=== PATIENT | female | born 1970 | race Caucasian/White ===

== ENCOUNTER → 2018-04-10 17:37 | Outpatient (CLI) | payer OTHER, SELFPAY ==
--- NOTE | 2018-04-10 17:42 | DI.MRI.S_ITS ---
PROCEDURE: MR HEAD/BRAIN WO/W CON INDICATIONS: MULTIPLE SCLEROSIS TECHNIQUE: Noncontrast sagittal and axial FLAIR, axial and coronal T2 fast spin echo, axial VIBE, axial gradient echo, axial diffusion and ADC through the brain. After the administration of contrast, axial and coronal VIBE with fat saturation through the brain. COMPARISON: [facility], MR, BRAIN W&WO CONTRAST, 04/18/2017, 17:19. FINDINGS: Image quality: Excellent. CSF spaces: Ventricles are normal in size and shape. Basal cisterns are patent. No extra-axial fluid collections. Brain: No intracranial bleeds or mass effects. Foci of increased T2 signal involving the corpus callosal, periventricular and subcortical white matter are stable in size, contour and number compared to 04/19/2017. No new white matter lesions are identified. No postcontrast enhancement associated with the white matter lesions. Jesus-white matter interface appears intact. No suspicious white matter lesions. No abnormal intracranial enhancement. Diffusion weighted images show no acute ischemic insults. Brainstem appears normal. Normal intravascular flow voids are present. Skull and face: Calvarial marrow signal is normal. Orbits appear normal. Sinuses: Sinuses and mastoids are clear. IMPRESSION: 1. Stable examination compared to 04/19/17. 2. Multiple foci of increased T2 signal involving the corpus callosal, periventricular and subcortical white matter which have imaging characteristics compatible with reported history of multiple sclerosis. 3. No abnormal intracranial postcontrast enhancement. Dictated by: Jenny Collins MD, PhD on 04/13/2018 at 8:36 Approved by: Jenny Collins MD, PhD on 04/13/2018 at 8:41
== END ==
PROVIDERS: Family Provider Physician Assistant Medical; PCP Family Medicine; Visit Provider Psychiatry & Neurology Neurology
DX: G35 Multiple sclerosis (principal)
CPT/HCPCS: 70553; A9579

== ENCOUNTER → 2019-01-26 06:31 | Outpatient (CLI) | payer OTHER, SELFPAY ==
--- NOTE | 2019-01-26 | DI.MRI.S_ITS ---
PROCEDURE: MR ELBOW RT WO/W CON INDICATIONS: RIGHT ELBOW PAIN TECHNIQUE: Noncontrast coronal proton density fast spin echo and T2 fast spin echo with fat saturation, coronal T1 spin echo with fat saturation, axial and sagittal T1 spin echo and T2 fast spin echo with fat saturation through the elbow. Post-contrast coronal, axial, and sagittal T1 spin echo with fat saturation through the elbow. COMPARISON: None. FINDINGS: Image quality: Excellent. Lateral structures: Full-thickness rupture of lateral collateral ligaments are seen. The overlying common extensor tendon also appears thickened with suggestion of low-grade intrasubstance partial thickness tear near its lateral epicondylar insertion. Medial structures: The ulnar collateral ligament appears intact. The overlying common flexor tendon appears slightly thickened with internal fluid signal suggestive of tendinosis and low-grade intrasubstance partial thickness tear. The ulnar nerve appears normal in size and signal within the cubital tunnel. Anterior structures: The biceps and brachialis tendons both appear intact as they insert onto the proximal radius and ulna, respectively. No bicipitoradial bursal fluid. The median and radial neurovascular bundles appear normal; no focal muscle atrophy to suggest nerve impingement. Posterior structures: The conjoint triceps tendon from the long and lateral heads appears intact. The medial head of the triceps tendon also appears normal, with direct muscle insertion onto the olecranon. No olecranon bursal fluid. Bone and cartilage: No suspicious osseous enhancement. No bone marrow contusions or fractures. No osteochondral injuries. Moderate amount of joint effusion is seen. No gross intra-articular loose body. IMPRESSION: 1. Ruptured lateral collateral ligaments of the elbow joint with tendinosis and low to moderate grade partial-thickness involving common extensor tendon origin. Moderate amount of joint fluid, no gross loose body. 2. Tendinosis and low-grade partial-thickness involving common flexor tendon origin. 3. Medial elbow ligaments are grossly intact. 4. No marrow edema. No fracture or dislocation. No area of abnormal contrast enhancement. Dictated by: Jesus Gonzalez M.D. on 01/26/2019 at 12:28 Approved by: Jesus Gonzalez M.D. on 01/26/2019 at 12:39
== END ==
PROVIDERS: PCP Family Medicine; Visit Provider Family Medicine
DX: M25.521 Pain in right elbow (principal); S53.491A Other sprain of right elbow, initial encounter
CPT/HCPCS: 73223; A9579

== ENCOUNTER 2019-03-13 10:22 | Emergency (ER) | payer OTHER, SELFPAY ==
[2019-03-13 10:28] VITALS: BP 114/63; PULSE 79; RESP 14; TEMP 36.3; O2SAT 100
--- NOTE | 2019-03-13 10:44 | DI.RAD.S_ITS ---
PROCEDURE: XR HAND RT MIN 3V INDICATIONS: glf, right hand pain,swelling. TECHNIQUE: 3 views of the hand(s) acquired. COMPARISON: None. FINDINGS: Bones: No fractures or dislocations. Carpal bones are normally aligned. No suspicious bony lesions. Soft tissues: No suspicious soft tissue calcifications. IMPRESSION: No displaced fractures are seen on these plain films. If there is focal tenderness, or other clinical concern for a fracture not seen on these images in this patient with a given history of trauma, please consider a dedicated CT or a short-term followup plain film series (in 1-2 weeks) for further evaluation. Dictated by: Wero Craft M.D. on 03/13/2019 at 10:01 Approved by: Wero Craft M.D. on 03/13/2019 at 10:02
[2019-03-13 11:01] VITALS: PULSE 70
--- NOTE | 2019-03-13 11:02 | PC.NURSE ---
CSM intact w/ movement limited by pain. Splinted at triage for comfort. Encouraged ice and elevation.
--- NOTE | 2019-03-13 11:31 | ED_ITS ---
HPI - Extremity Injury (Upper) General Chief Complaint: Extremity Injury, Upper Stated Complaint: poss broken r hand Time Seen by Provider: 03/13/19 11:24 Source: patient Mode of arrival: ambulatory Limitations: no limitations History of Present Illness HPI narrative: Patient is a 48-year-old female with history of multiple sclerosis presenting with right hand injury. She says she tripped and fell a tumbling into the chicken coop. No loss of consciousness. Initial site of impact was her hand. She has chronic elbow pain not any worse. She thinks that some of her fingers are numb. She has significant swelling of her hand. MD complaint: injury to: right and hand Onset (ago): hour(s) Related Data Home Medications Medication Instructions Recorded Confirmed FERROUS SULFATE (#IRON CAPLETS) 125 mg PO QDAY #0 08/10/12 Glucosamine Sulfate (#GLUCOSAMINE) 3,000 mg PO #0 08/10/12 MULTIVITAMIN (#MULTIPLE VITAMINS) 1 cap PO QDAY #0 08/10/12 acetaminophen [Tylenol Extra 1,000 mg PO Q6HP #0 08/10/12 Strength] cetirizine 10 mg PO QDAY #0 08/10/12 cholecalciferol (vitamin D3) 3,000 iu PO DAILY #0 08/10/12 [Vitamin D3] citalopram [Celexa] 20 mg PO QDAY #0 08/10/12 folic acid 5 mg PO QDAY #0 08/10/12 methotrexate sodium (PF) 1 ml SQ QWEEKSA #0 08/10/12 gabapentin [Neurontin] 900 mg PO HS #0 08/25/12 calcium citrate 2,000 mg PO BID #0 10/08/16 magnesium oxide 400 mg PO QDAY #0 10/08/16 duloxetine [Cymbalta] 60 mg PO QDAY #0 06/20/17 hydrocodone-ibuprofen [Ibudone] #0 06/20/17 Previous Rx's Medication Instructions Recorded hydrocodone-acetaminophen [Appleton] 1 tab PO Q4H PRN #60 tab 10/23/16 hydroxyzine pamoate [Vistaril] 25 mg PO Q4HP PRN #60 cap 10/23/16 pantoprazole 40 mg PO 0600 #60 10/23/16 Allergies Allergy/AdvReac Type Severity Reaction Status Date / Time adhesive Allergy Severe BLISTER, Verified 03/13/19 10:33 SKIN COMES OFF capsaicin [CAPSAICIN] Allergy Severe ANAPHYLAXIS Verified 03/13/19 10:33 shellfish derived Allergy Severe ANAPHYLAXIS Verified 03/13/19 10:33 [SHELLFISH DERIVED] latex [LATEX] Allergy Intermediate BLISTER, Verified 03/13/19 10:33 HIVES oxycodone [From PERCOCET] Allergy Intermediate HIVES Verified 03/13/19 10:33 acetaminophen [From PERCOCET] AdvReac Intermediate HIVES Verified 03/13/19 10:33 Review of Systems Review of Systems GENERAL: Denies chills,fever HEENT: Denies throat pain RESPIRATORY: Denies dyspnea, cough, wheezing CARDIOVASCULAR: Denies chest pain, palpitations GASTROINTESTINAL: Denies nausea, vomiting MUSCULOSKELETAL: See HPI SKIN: No rash, no laceration, no pruritus NEUROLOGIC: Denies weakness, dizziness, headache, numbness 8 point review of systems is negative except for those stated above and HPI FOR[facility]LY [facility], [facility] Medical History Multiple sclerosis (Acute) Social History Smoking Status: Former smoker Social History Smoking Status: Former smoker Exam Initial Vital Signs Initial Vital Signs: Vital Signs Temperature 97.3 F L 03/13/19 10:28 Pulse Rate 79 03/13/19 10:28 Respiratory Rate 14 03/13/19 10:28 Blood Pressure 114/63 03/13/19 10:28 Pulse Oximetry 100 03/13/19 10:28 GENERAL: Well-appearing, well-nourished and in no acute distress. HEAD: Atraumatic no abrasions crepitations depression NECK: Supple no vertebral tenderness CARDIOVASCULAR: peripheral pulses in tact, cap refill <2 sec RESPIRATORY: No respiratory distress, speaks in full sentences without difficulty EXTREMITIES: Normal range of motion, no clubbing or edema. Neurovascularly i ntact Right hand swelling. Decreased range of motion of fingers due to swelling. Drains have been removed. She is able to flex and extend at her wrist. Slight pain at right elbow but she says that is normal. NEUROLOGICAL: Cranial nerves II through XII grossly intact. Normal gait and speech. SKIN: Warm, dry, no petechiae, no rashes or lesions. Course Orders Ordered: ED Orders 03/13/19 10:44 XR hand RT min 3V Stat Discontinued Medications Ketorolac Tromethamine (Toradol) 30 mg IM NOW ONE Stop: 03/13/19 11:25 Last Admin: 03/13/19 11:44 Dose: 30 mg Vital Signs - 8 hr 03/13/19 10:28 03/13/19 11:01 03/13/19 12:01 Temperature 97.3 F L Pulse Rate 79 78 Pulse Rate [Right Radial] 70 Respiratory Rate 14 14 Blood Pressure 114/63 Blood Pressure [Left Arm] 122/78 Pulse Oximetry 100 98 MDM - Extremity Injury (Upper) Imaging Data right hand: Radiologist's impression: PROCEDURE: XR HAND RT MIN 3V INDICATIONS: glf, right hand pain,swelling. TECHNIQUE: 3 views of the hand(s) acquired. COMPARISON: None. FINDINGS: Bones: No fractures or dislocations. Carpal bones are normally aligned. No suspicious bony lesions. Soft tissues: No suspicious soft tissue calcifications. IMPRESSION: No displaced fractures are seen on these plain films. If there is focal tenderness, or other clinical concern for a fracture not seen on these images in this patient with a given history of trauma, please consider a dedicated CT or a short-term followup plain film series (in 1-2 weeks) for further evaluation. Dictated by: Wero Craft M.D. on 03/13/2019 at 10:01 Discharge Plan Departure Patient Disposition: Home Clinical Impression: Sprain and strain of right hand Discharge Date/Time: 03/13/19 12:02 Interventions: ED Discharge Assessment Last Done: 03/13/19 12:02 Instructions: DI for Hand Injury Activity Restrictions/Additional Instructions: *You have been diagnosed with right hand sprain *What to do: Recommend elevating, icing. Increased movement as tolerated. You may require repeat x-rays in 7-10 days if still having pain and discomfort. *Continue to take medications as directed *Follow up with your primary care provider in 2-3 days *Return to ER if you should have increasing weakness, numbness, tingling or any new, worsening or concerning symptoms Prescriptions: No Action cholecalciferol (vitamin D3) [Vitamin D3] 1,000 UNIT tablet 3,000 iu PO DAILY Qty: 0 RF: 0 acetaminophen [Tylenol Extra Strength] 500 MG tablet 1,000 mg PO Q6HP Qty: 0 RF: 0 folic acid 1 MG tablet 5 mg PO QDAY Qty: 0 RF: 0 MULTIVITAMIN (#MULTIPLE VITAMINS) 1 cap PO QDAY Qty: 0 RF: 0 citalopram [Celexa] 20 MG tablet 20 mg PO QDAY Qty: 0 RF: 0 methotrexate sodium (PF) 25 MG/1 ML solution 1 ml SQ QWEEKSA Qty: 0 RF: 0 cetirizine 10 MG tablet 10 mg PO QDAY Qty: 0 RF: 0 Glucosamine Sulfate (#GLUCOSAMINE) 3,000 mg PO Qty: 0 RF: 0 FERROUS SULFATE (#IRON CAPLETS) 125 mg PO QDAY Qty: 0 RF: 0 gabapentin [Neurontin] 300 MG capsule 900 mg PO HS Qty: 0 RF: 0 calcium citrate 200 MG tablet 2,000 mg PO BID Qty: 0 RF: 0 magnesium oxide 400 MG capsule 400 mg PO QDAY Qty: 0 RF: 0 pantoprazole 40 MG tablet,delayed release (DR/EC) 40 mg PO 0600 Qty: 60 RF: 0 hydrocodone-acetaminophen [[place]leton] 5 MG/325 MG tablet 1 tab PO Q4H PRNQty: 60 RF: 0 hydroxyzine pamoate [Vistaril] 25 MG capsule 25 mg PO Q4HP PRNQty: 60 RF: 0 hydrocodone-ibuprofen [Ibudone] 10 MG/200 MG tablet Qty: 0 RF: 0 duloxetine [Cymbalta] 60 MG capsule,delayed release(DR/EC) 60 mg PO QDAY Qty: 0 RF: 0 Referrals: Aundrea De La Cruz MD [Primary Care Provider] -
[2019-03-13] MEDS: KETOROLAC 60 MG/2 ML VIAL 30 MG IM (11:44)
[2019-03-13 12:01] VITALS: BP 122/78; PULSE 78; RESP 14; O2SAT 98
== END 2019-03-13 12:02 | disposition home or self-care (01) ==
PROVIDERS: Emergency Provider Emergency Medicine; PCP Family Medicine
DX: S63.91XA Sprain of unspecified part of right wrist and hand, initial encounter (principal); W19.XXXA Unspecified fall, initial encounter
CPT/HCPCS: 73130; 96372; 99282; 99283; J1885

== ENCOUNTER → 2020-03-03 17:03 | Outpatient (CLI) | payer OTHER, SELFPAY ==
--- NOTE | 2020-03-03 17:04 | DI.MRI.S_ITS ---
PROCEDURE: MR HEAD/BRAIN WO CON INDICATIONS: MULTIPLE SCLEROSIS TECHNIQUE: Noncontrast axial T1 spin echo, axial T2 fast spin echo, sagittal and axial FLAIR, coronal T2 fast spin echo, axial gradient echo, axial diffusion and ADC through the brain. COMPARISON: [facility], MR, BRAIN W&WO CONTRAST, 04/18/2017, 17:19. [facility], MR, MR HEAD/BRAIN WO/W CON, 04/10/2018, 17:56. FINDINGS: Image quality: Excellent. CSF Spaces: Basal cisterns are patent. No extra-axial fluid collections. Ventricles are normal in size and shape. Brain: No intracranial masses or hemorrhage. Jesus/white matter interface is normal. The previously identified foci of elevated T2 signal at the periventricular and subcortical deep white matter, and also centripetally oriented right greater than left at the corpus callosum is better visualized on the current flair imaging technique but does not appear to have increased in number or size when this is taken into account Brainstem appears normal. Diffusion-weighted images demonstrate no acute ischemic insult. No chronic ischemic insults. Normal intravascular flow voids are present. Skull and face: Calvarium has normal marrow signal. Orbits appear normal. Sinuses: Sinuses and mastoids are clear. IMPRESSION: Scattered foci of pericallosal, subcortical white matter and deep white matter foci of elevated flair and T2 signal without mass effect has not appreciably progressed from the comparison study 04/10/18 and 04/18/17 when differences in technique are taken into account. No new lesions found. The findings are consistent with prior stated clinical history of underlying multiple sclerosis. Dictated by: Abhi Rodríguez M.D. on 03/06/2020 at 8:05 Approved by: Ahbi Rodríguez M.D. on 03/06/2020 at 8:11
== END ==
PROVIDERS: PCP Family Medicine; Referring Provider Psychiatry & Neurology Neurology; Visit Provider Psychiatry & Neurology Neurology
DX: G35 Multiple sclerosis (principal)
CPT/HCPCS: 70551

== ENCOUNTER → 2020-08-21 14:46 | Outpatient (CLI) | payer OTHER, SELFPAY ==
[2020-08-23 08:20] LABS: COVID19 Sendout Not Detected (Not Detect)
== END ==
PROVIDERS: PCP Family Medicine; Visit Provider Physician Assistant
DX: Z11.59 Encounter for screening for other viral diseases (principal)
CPT/HCPCS: 87635

== ENCOUNTER → 2020-08-24 10:22 | Outpatient (CLI) | payer OTHER, SELFPAY ==
--- NOTE | 2020-08-24 | DI.NM.S_ITS ---
PROCEDURE: NM IAN PERF SPECT REST & STR Rest and exercise myocardial perfusion SPECT with gated imaging and ejection fraction RADIOPHARMACEUTICAL: 25.5 mCi Tc-99m sestamibi IV at rest and 26.0 mCi Tc-99m sestamibi IV at peak exercise. A two day-protocol was performed. INDICATIONS: CHEST PAIN TECHNIQUE: Radiopharmaceutical was injected at peak stress test, and also at rest. SPECT images were obtained. SPECT myocardial perfusion images were displayed in short axis, horizontal long axis, and vertical long axis views. Gated images were reviewed using [employer] software. COMPARISON: None. CARDIAC STRESS: A standard Dale treadmill exercise tolerance test was performed by the patient under the supervision of an attending staff. The patient exercised for 5 minutes and 59 seconds; functional aerobic impairment (STACIE) is +12%. Hemodynamic data: There is normal blood pressure and heart rate response to exercise stress. Patient reached the target heart rate at peak exercise. Symptoms: Patient denied chest pain during exercise. EKG: No diagnostic EKG changes of ischemia; no ectopy. FINDINGS: Raw data: There is good myocardial labeling by radiotracer. No significant motion artifacts. Kqnv-[id number]-[id number] ratio is 0.33 (normal is less than 0.38 for sestamibi tracer, and less than 0.50 for thallium tracer). Left ventricle function: Gated images demonstrate normal left ventricle wall thickening. No segmental wall motion abnormality. No transient ischemic dilation; TID is 1.0 (normal less than 1.3). The left ventricle resting end-diastolic volume is 114 mL. Left ventricle stress ejection fraction is 74%; normal values are above 45%. Myocardial perfusion: There is a mildly intense apical defect at rest that worsens to moderate on supine stress images but improves to mildly intense on prone stress imaging suggesting artifact than true ischeima. Old non-transmural infarct can't be excluded definitively. IMPRESSION: Possibly abnormal nuclear stress test as prior non-transmural infarct can't be excluded. No ischemia. 1) No perfusion evidence of ischemia. There is a mildly intense apical defect at rest that worsens to moderate on supine stress images but improves to mildly intense on prone stress imaging suggesting artifact than true ischeima. Old non-transmural infarct can't be excluded definitively. 2) Normal left ventricular size, wall motion, and systolic function (EF post stress 74%). 3) No ECG evidence of ischemia. 4) No angina during the study. 5) Mildly reduced exercise tolerance (7.0 Mets, STACIE +12%). Target heart rate achieved. Apprpriate BP response to exercise. 6) No prior nuclear stress test available for comparison. Dictated by: Sepideh Herbert MD on 08/25/2020 at 18:24 Approved by: Sepideh Herbert MD on 08/25/2020 at 18:30
== END ==
PROVIDERS: PCP Physician Assistant Medical; Referring Provider Physician Assistant Medical; Visit Provider Physician Assistant Medical
DX: R07.89 Other chest pain (principal)
CPT/HCPCS: 78452; 93017; A9502

== ENCOUNTER → 2020-12-29 13:00 | Outpatient (CLI) | payer OTHER, SELFPAY ==
--- NOTE | 2020-12-29 | DI.MRI.S_ITS ---
PROCEDURE: MR SHOULDER RT WO CON INDICATIONS: Unspecified rotator cuff tear or rupture of right TECHNIQUE: Noncontrast oblique coronal T2 fast spin echo with fat saturation, oblique sagittal T1 spin echo and T2 fast spin echo with fat saturation, axial T1 spin echo and T2 fast spin echo with fat saturation through the shoulder. COMPARISON: [facility], CR, XR SHOULDER 2+ VIEWS RIGHT, 07/19/2020, 7:42. FINDINGS: Image quality: Excellent. Rotator cuff: Supraspinatus tendinopathy with low-grade bursal surface fraying. There is also partial-thickness articular sided tear, although probably less than 50% of tendon thickness. Mild infraspinatus tendinopathy. The teres minor tendon appears intact. Subscapularis tendon grossly unremarkable. No atrophy of the rotator cuff muscles although mild fatty infiltration of the infraspinatus is seen. Bones and bursae: No bone marrow contusions or fractures. Mild glenohumeral joint degeneration Severe hypertrophic acromioclavicular joint degeneration. There is prominent periarticular marrow edema. The inferior AC ligament is not well seen and could be ruptured. Acromion demonstrates conventional anatomy, without an os acromiale. Mild subacromial-subdeltoid bursitis. Capsule and soft tissues: Labrum: Blunted appearance of the posterior superior segment. There is superior labral fraying which may be age-appropriate. There is also suspected undercutting cartilage at the superior glenoid (anatomic variant.) Long head of the biceps tendon intact. The rotator interval appears normal, without fibrosis. Coracohumeral ligament intact. IMPRESSION: Supraspinatus tendinopathy with low-grade bursal surface fraying and partial thickness articular sided tear. Mild infraspinatus tendinopathy Severe hypertrophic acromioclavicular joint degeneration. There is prominent periarticular marrow edema, and recommend clinical correlation to exclude infectious or inflammatory arthropathies, or posttraumatic etiology. The inferior AC ligament not well seen and could be ruptured. Blunted appearance of the posterosuperior labrum presumably reflecting advanced degeneration versus chronic tear. Dictated by: Joshua Jacob M.D. on 12/29/2020 at 15:17 Approved by: Joshua Jacob M.D. on 12/29/2020 at 15:28
== END ==
PROVIDERS: PCP Physician Assistant Medical; Referring Provider Orthopaedic Surgery; Visit Provider Orthopaedic Surgery
DX: M75.111 Incomplete rotator cuff tear or rupture of right shoulder, not specified as traumatic (principal); M19.011 Primary osteoarthritis, right shoulder
CPT/HCPCS: 73221

== ENCOUNTER 2021-03-04 08:57 | Emergency (ER) | payer OTHER, SELFPAY ==
--- NOTE | 2021-03-04 09:01 | ED_ITS ---
HPI - Skin/Abscess/Foreign Bdy General Chief complaint: Skin/Abscess/Foreign Body Stated complaint: dog clawed lip, states need stitches Time Seen by Provider: 03/04/21 09:00 Source: patient Mode of arrival: Ambulatory Limitations: no limitations History of Present Illness HPI narrative: 50-year-old female nonsmoker with history of MS presents with a chief complaint of a dog bite to her lower lip just prior to arrival. 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 Her tetanus is up-to-date. The dog has immunizations current. She has pain and bleeding and is otherwise well and free of complaint MD complaint: laceration Onset (ago): minute(s) Tetanus up to date: yes Location: face Severity: moderate Quality: stabbing Pain Consistency: constant Relieving factors: none Exacerbating factors: movement Associated symptoms: denies other symptoms Treatments prior to arrival: other (Extensive cleaning immediately after the injury) Related Data Home Medications Medication Instructions Recorded Confirmed FERROUS SULFATE (#IRON CAPLETS) 125 mg PO QDAY #0 08/10/12 Glucosamine Sulfate (#GLUCOSAMINE) 3,000 mg PO #0 08/10/12 MULTIVITAMIN (#MULTIPLE VITAMINS) 1 cap PO QDAY #0 08/10/12 acetaminophen [Tylenol Extra 1,000 mg PO Q6HP #0 08/10/12 Strength] cetirizine 10 mg PO QDAY #0 08/10/12 cholecalciferol (vitamin D3) 3,000 iu PO DAILY #0 08/10/12 [Vitamin D3] citalopram [Celexa] 20 mg PO QDAY #0 08/10/12 folic acid 5 mg PO QDAY #0 08/10/12 methotrexate sodium (PF) 1 ml SQ QWEEKSA #0 08/10/12 gabapentin [Neurontin] 900 mg PO HS #0 08/25/12 calcium citrate 2,000 mg PO BID #0 10/08/16 magnesium oxide 400 mg PO QDAY #0 10/08/16 duloxetine [Cymbalta] 60 mg PO QDAY #0 06/20/17 hydrocodone-ibuprofen [Ibudone] #0 06/20/17 Previous Rx's Medication Instructions Recorded hydrocodone-acetaminophen [Winsted] 1 tab PO Q4H PRN #60 tab 10/23/16 hydroxyzine pamoate [Vistaril] 25 mg PO Q4HP PRN #60 cap 10/23/16 pantoprazole 40 mg PO 0600 #60 10/23/16 amoxicillin-pot clavulanate 1 tab PO BID #20 tab 03/04/21 [Augmentin] Allergies Allergy/AdvReac Type Severity Reaction Status Date / Time adhesive Allergy Severe BLISTER, Verified 03/13/19 10:33 SKIN COMES OFF capsaicin [CAPSAICIN] Allergy Severe ANAPHYLAXIS Verified 03/13/19 10:33 shellfish derived Allergy Severe ANAPHYLAXIS Verified 03/13/19 10:33 [SHELLFISH DERIVED] latex [LATEX] Allergy Intermediate BLISTER, Verified 03/13/19 10:33 HIVES oxycodone [From PERCOCET] Allergy Intermediate HIVES Verified 03/13/19 10:33 acetaminophen [From PERCOCET] AdvReac Intermediate HIVES Verified 03/13/19 10:33 Review of Systems Constitutional Constitutional: Denies chills, Denies fatigue, Denies fever(s), Denies frequent falls, Denies lethargy and Denies weakness Eyes Eyes: Denies change in vision, Denies eye discharge, Denies irritation and Denies loss of vision ENT Ears, Nose, Mouth, and Throat: Denies change in voice, Denies dizziness, Denies neck pain, Denies sore throat and Denies throat swelling Cardiovascular Cardiovascular: Denies chest pain, Denies irregular heart rhythm, Denies lightheadedness, Denies palpitations, Denies dyspnea, Denies dyspnea on exertion and Denies orthopnea Respiratory Respiratory: Denies cough, Denies dyspnea, Denies dyspnea on exertion and Denies wheezing Gastrointestinal Gastrointestinal: Denies abdominal pain, Denies change in bowel habits, Denies diarrhea, Denies nausea and Denies vomiting Musculoskeletal Musculoskeletal: Denies neck pain and Denies numbness Integumentary/Breasts Skin/Breast: Denies pruritus, Denies erythema, Denies rash and Reports wounds Neurologic Neurologic: Denies behavioral changes, Denies confusion, Denies dizziness, Denies frequent falls, Denies loss of vision, Denies numbness and Denies weakness Psychiatric Psychiatric: Denies anxiety, Denies behavioral changes, Denies confusion, Denies depression, Denies homicidal ideation and Denies suicidal ideation Endocrine Endocrine: Denies fatigue, Denies flushing and Denies palpitations Hematologic/Lymphatic Hematologic/Lymphatic: Denies easy bruising Allergic/Immunologic Allergic/Immunologic: Denies urticaria, Denies throat swelling and Denies wheezing Patient History Medical History Multiple sclerosis Social History Smoking Status: Former smoker Smoking Status: Former smoker alcohol intake frequency: 0-2 drinks per day Substance Use Type: does not use Exam Narrative Exam Narrative: GEN: AOx3 and in mild distress EYES: Pupils are equal, round, and reactive to light and accommodation. Extraoccular muscles are intact bilaterally. There is no subconjunctival hemorrhage or exudate. HEAD: 1cm irregular laceration at right corner of lower lip, approaches and might barely cross the shanda border. Deep structures in tact, not through and through. Minimal bleeding, no FB noted CHEST: Lungs are clear to auscultation bilaterally and free of wheezes, rales, or rhonchi. Heart rate is regular rhythm, there are no murmurs, clicks, rubs, or gallops. There is no chest wall tenderness. ABD: Abdomen is soft and nontender. There is no guarding or rebound. Bowel sounds are normal in all 4 quadrants. There is no mass or organomegaly. EXT: Full painless ROM of all extremities with no loss of sensation or strength. SKIN: Warm, pink, and dry. No erythema or rash Initial Vital Signs Initial Vital Signs: Vital Signs Temperature 98.4 F 03/04/21 09:05 Pulse Rate 100 H 03/04/21 09:05 Respiratory Rate 18 03/04/21 09:05 Blood Pressure 175/96 H 03/04/21 09:05 Pulse Oximetry 98 03/04/21 09:05 Procedures Laceration Repair Laceration 1: Site: face Side (If applicable): right Size (cm): 1 Description: irregular Depth: simple, single layer Local Anesthetic: lidocaine 1% and with bicarb Amount of anesthesia used (mL): 3 Skin layer closed with: nylon Size (cm): 6-0 Number of sutures: 4 Technique: simple, interrupted Subcutaneous layer closed with: vicryl Size: 5-0 Number of sutures: 1 Technique: simple, interrupted Course Orders Ordered: Discontinued Medications Lidocaine/Sodium Bicarbonate (Lido 1%/Sod Bicarb 8.4% (10ml) 10 Ml Syringe) 10 ml INJ NOW ONE Stop: 03/04/21 09:02 Last Admin: 03/04/21 09:17 Dose: 10 ml Documented by: KULDEEP Vital Signs Vital signs: Vital Signs - 8 hr 03/04/21 09:05 03/04/21 09:48 Temperature 98.4 F Pulse Rate 100 H 77 Respiratory Rate 18 16 Blood Pressure 175/96 H 180/86 H Pulse Oximetry 98 100 Discharge Plan Departure Patient Disposition: Home Clinical Impression: Complicated laceration of lip Qualifiers: Encounter type: initial encounter Qualified Code(s): S01.511A - Laceration without foreign body of lip, initial encounter Instructions: DI for Laceration Repair -- Complex Activity Restrictions/Additional Instructions: *You have been diagnosed with [lip laceration] *What to do: *Please continue to take your regular medications as directed. [x ] New medication prescriptions sent to your pharmacy: [ [facility] in [place]] [ ] New medication written as a paper prescription [ ] No new medications given * Please keep the wound clean and dry to the best of your ability. Please monitor for signs of infection such as redness to the skin or increasing pain. Have the sutures removed by your doctor in about 7 days. If you are unable to get into your doctor, we would be happy to remove the sutures in that same timeframe. *If you do not have a primary care provider please contact the [facility] Resource line at [phone]. They will ask some questions about your medical history and help get you set up with a doctor in the community. *Return to Emergency Department if you should have any new, worsening or conc erning symptoms, such as [fever greater than 101 F, shaking chills, worsening pain, persistent vomiting or other bothersome symptoms] Prescriptions: New amoxicillin-pot clavulanate [Augmentin] 875-125 mg tablet 1 tab PO BID Qty: 20 RF: 0 No Action cholecalciferol (vitamin D3) [Vitamin D3] 1,000 UNIT tablet 3,000 iu PO DAILY Qty: 0 RF: 0 acetaminophen [Tylenol Extra Strength] 500 MG tablet 1,000 mg PO Q6HP Qty: 0 RF: 0 folic acid 1 MG tablet 5 mg PO QDAY Qty: 0 RF: 0 MULTIVITAMIN (#MULTIPLE VITAMINS) 1 cap PO QDAY Qty: 0 RF: 0 citalopram [Celexa] 20 MG tablet 20 mg PO QDAY Qty: 0 RF: 0 methotrexate sodium (PF) 25 MG/1 ML solution 1 ml SQ QWEEKSA Qty: 0 RF: 0 cetirizine 10 MG tablet 10 mg PO QDAY Qty: 0 RF: 0 Glucosamine Sulfate (#GLUCOSAMINE) 3,000 mg PO Qty: 0 RF: 0 FERROUS SULFATE (#IRON CAPLETS) 125 mg PO QDAY Qty: 0 RF: 0 gabapentin [Neurontin] 300 MG capsule 900 mg PO HS Qty: 0 RF: 0 calcium citrate 200 MG tablet 2,000 mg PO BID Qty: 0 RF: 0 magnesium oxide 400 MG capsule 400 mg PO QDAY Qty: 0 RF: 0 pantoprazole 40 MG tablet,delayed release (DR/EC) 40 mg PO 0600 Qty: 60 RF: 0 hydrocodone-acetaminophen [Winsted] 5 MG/325 MG tablet 1 tab PO Q4H PRNQty: 60 RF: 0 hydroxyzine pamoate [Vistaril] 25 MG capsule 25 mg PO Q4HP PRNQty: 60 RF: 0 hydrocodone-ibuprofen [Ibudone] 10 MG/200 MG tablet Qty: 0 RF: 0 duloxetine [Cymbalta] 60 MG capsule,delayed release(DR/EC) 60 mg PO QDAY Qty: 0 RF: 0 Referrals: Sujatha Curiel PA-C [Primary Care Provider] -
[2021-03-04 09:05] VITALS: BP 175/96; PULSE 100; RESP 18; TEMP 36.9; O2SAT 98; BMI 37.3
[2021-03-04] MEDS: LIDO 1%/SOD BICARB 8.4% (10ML) 10 ML SYRINGE INJ (09:17)
[2021-03-04 09:48] VITALS: BP 180/86; PULSE 77; RESP 16; O2SAT 100
== END 2021-03-04 09:48 | disposition home or self-care (01) ==
PROVIDERS: Emergency Provider Emergency Medicine; PCP Physician Assistant Medical
DX: S01.551A Open bite of lip, initial encounter (principal); W54.0XXA Bitten by dog, initial encounter
CPT/HCPCS: 12011; 99282; 99283

== ENCOUNTER 2021-09-02 08:15 | Inpatient (IN) | payer OTHER, SELFPAY ==
[2021-09-02] VITALS (15 sets, daily range): BP systolic 123–148; BP diastolic 75–92; PULSE 85–97; RESP 16–24; TEMP 36.6–37.4; O2SAT 89–97; BMI 36.3
--- NOTE | 2021-09-02 09:02 | DI.RAD.S_ITS ---
PROCEDURE: XR CHEST 2V INDICATIONS: cough x 30 days. crackles b/l bases. TECHNIQUE: 2 views of the chest were acquired. COMPARISON: [facility], , CHEST 2 VIEW, 07/09/2012, 10:11. FINDINGS: Surgical changes and devices: None. Lungs and pleura: Bibasilar atelectasis and or infiltrate in the posterior costophrenic sulci accentuated by low lung volumes. Mediastinum: Mediastinal contours are normal. Heart size is normal. Bones and chest wall: No suspicious bony abnormalities. Soft tissues appear unremarkable. IMPRESSION: Bibasilar atelectasis and or infiltrate accentuated by low lung volumes. Approved by: Malik Cisse M.D. on 09/02/2021 at 8:56
--- NOTE | 2021-09-02 09:04 | ED_ITS ---
HPI - URI/Sore Throat General Chief Complaint: Upper Respiratory Symptoms Stated Complaint: coughing, throwing up Time Seen by Provider: 09/02/21 08:47 Source: patient Mode of arrival: Ambulatory Limitations: no limitations History of Present Illness HPI Narrative: This is a 50-year-old female with known history of MS. Patient states she has had a cough for about 30 days which has not resolved. Patient states she was seen at Urgent Care she had a two view chest x-ray and has since been referred to Pulmonary. Patient has not had lab work or EKG or other workup so far. She states she has had a cough which is occasionally productive but clear. She has not had fevers or chills. She does have some shortness of breath but not rapidly worsening. She has also had some chest pain but states she has costochondritis so it just hurts every time she coughs in the coughing seems to make it worse. She has not had nausea. She does describe posttussive emesis. Where she will cough very hard and then vomit. Patient has not had diarrhea constipation. She has not had any new swelling in her extremities. She has not had similar symptoms except for about 20 years ago she states when she had pneumonia. Patient does take baclofen, gabapentin, Ampyra, duloxetine and supplements. Patient states she did take steroid Dosepak which has not been helpful she is on her last pill today. She follows with Neurology sooner [place]. She has not had these issues typically and her typical flares are difficulty with her feet and cognitive fog. She does have allergies to albuterol which makes her feel like she has a sunburn, Percocet, Tessalon Perles and capsaicin. She has been prescribed codeine cough syrup which has not been helpful. She has a history of hysterectomy, knee surgery and left arm surgery. No tobacco, rare alcohol no illicit. Related Data Home Medications Medication Instructions Recorded Confirmed Glucosamine Sulfate (#GLUCOSAMINE) 3,000 mg PO DAILY #0 08/10/12 09/02/21 MULTIVITAMIN (#MULTIPLE VITAMINS) 1 cap PO QDAY #0 08/10/12 09/02/21 acetaminophen 500 mg tablet 1,000 mg PO Q6HP #0 08/10/12 09/02/21 (Tylenol Extra Strength) cetirizine 10 mg tablet 10 mg PO QDAY #0 08/10/12 09/02/21 cholecalciferol (vitamin D3) 25 3,000 iu PO DAILY #0 08/10/12 09/02/21 mcg (1,000 unit) tablet (Vitamin D3) citalopram 20 mg tablet (Celexa) 20 mg PO QDAY #0 08/10/12 09/02/21 gabapentin 300 mg capsule 900 mg PO HS #0 08/25/12 09/02/21 (Neurontin) calcium citrate 200 mg (950 mg) 2,000 mg PO BID #0 10/08/16 09/02/21 tablet magnesium oxide 400 mg PO QDAY #0 10/08/16 09/02/21 duloxetine 60 mg capsule,delayed 60 mg PO QDAY #0 06/20/17 09/02/21 release (Cymbalta) Previous Rx's Medication Instructions Recorded pantoprazole 40 mg tablet,delayed 40 mg PO 0600 #60 10/23/16 release amoxicillin 875 mg-potassium 1 tab PO BID #20 tab 03/04/21 clavulanate 125 mg tablet (Augmentin) Allergies Allergy/AdvReac Type Severity Reaction Status Date / Time adhesive Allergy Severe BLISTER, Verified 03/13/19 10:33 SKIN COMES OFF capsaicin [CAPSAICIN] Allergy Severe ANAPHYLAXIS Verified 03/13/19 10:33 shellfish derived Allergy Severe ANAPHYLAXIS Verified 03/13/19 10:33 [SHELLFISH DERIVED] latex [LATEX] Allergy Intermediate BLISTER, Verified 03/13/19 10:33 HIVES oxycodone [From PERCOCET] Allergy Intermediate HIVES Verified 03/13/19 10:33 acetaminophen [From PERCOCET] AdvReac Intermediate HIVES Verified 03/13/19 10:33 Review of Systems Constitutional Constitutional: Denies body ache(s), Denies chills, Denies fever(s), Denies frequent falls, Denies lethargy, Reports malaise and Denies weakness ENT Ears, Nose, Mouth, and Throat: Denies change in voice, Denies dizziness, Denies neck pain, Reports post nasal drip and Denies sore throat Cardiovascular Cardiovascular: Denies chest pain, Denies irregular heart rhythm, Denies lightheadedness, Denies palpitations, Denies dyspnea on exertion and Denies orthopnea Respiratory Respiratory: Denies dyspnea on exertion Gastrointestinal Gastrointestinal: Denies abdominal pain, Denies change in bowel habits, Denies constipation, Denies diarrhea, Denies nausea and Reports vomiting Genitourinary Genitourinary: Denies urinary incontinence, Denies urinary hesitancy and Denies urinary urgency Musculoskeletal Musculoskeletal: Denies myalgias, Denies muscle weakness, Denies neck pain, Denies numbness and Denies tingling Integumentary/Breasts Skin/Breast: Denies rash Neurologic Neurologic: Denies behavioral changes, Denies confusion, Denies dizziness, Denies frequent falls, Denies numbness, Denies tingling and Denies weakness Psychiatric Psychiatric: Denies behavioral changes and Denies confusion Endocrine Endocrine: Denies palpitations Patient History Medical History (Updated 09/02/21 @ 17:31 by Amador Hankins DO) Depression Fibromyalgia Multiple sclerosis Rheumatoid arthritis Surgical History H/O shoulder surgery Family History Family/Other Multiple sclerosis Father Cancer Social History Smoking Status: Former smoker Smoking Status: Former smoker alcohol intake frequency: 0-2 drinks per day Substance Use Type: does not use Exam Narrative Exam Narrative: GEN: well nourished, well appearing female, alert and oriented x 3, patient appears to be in mild distress. HEENT: Atraumatic, pupils are equal round reactive to light, extraocular movements are intact, nares are clear. HEART: Regular rate and rhythm without murmur, clicks, rubs. LUNGS:Lungs equal breath sounds bilaterally on no wheezes, positive bilateral crackles both bases chest moves symmetrically, no tachypnea accessory muscle use. Patient has persistent dry cough often interrupting her speech. Nonprodu ctive in room. ABD:bowel sounds normal, soft, non-tender, no guarding, rebound, rigidity, no masses noted, no hepatosplenomegaly :No CVA tenderness MSCL: Non-tender, full range of motion, normal gait NEURO:CN 2-12 intact, sensation normal SKIN: No rash, erythema or other skin changes. Initial Vital Signs Initial Vital Signs: Vital Signs Temperature 99.2 F 09/02/21 08:34 Pulse Rate 92 H 09/02/21 08:34 Respiratory Rate 19 09/02/21 08:34 Blood Pressure 133/79 09/02/21 08:34 Pulse Oximetry 90 L 09/02/21 08:34 Course Orders Ordered: ED Orders 09/02/21 09:21 COVID19 -Nasal swab/Pre-Proc Stat 09/02/21 10:00 Blood Culture Stat Acetaminophen (Acetaminophen 325 Mg Tablet) 650 mg PO Q6HR PRN PRN Reason: Fever/Mild Pain (1-3) Citalopram Hydrobromide (Citalopram 10 Mg Tablet) 20 mg PO DAILY [facility] Duloxetine HCl (Duloxetine 30 Mg Capsule) 60 mg PO BEDTIME [facility] Enoxaparin Sodium (Enoxaparin 40 Mg/0.4 Ml Syringe) 40 mg SUBCUT DAILY [facility] Gabapentin (Gabapentin 300 Mg Capsule) 900 mg PO 1200,2000 [facility] Magnesium Oxide (Magnesium Oxide 400 Mg Tablet) 400 mg PO DAILY [facility] Ondansetron HCl (Ondansetron 4 Mg/2 Ml Inj) 4 mg IV Q8HR PRN PRN Reason: Nausea And Vomiting Pantoprazole Sodium (Pantoprazole Dr 40 Mg Tablet) 40 mg PO 0600 [facility] Discontinued Medications Dexamethasone (Dexamethasone 10 Mg/Ml Vial) 6 mg IV NOW ONE Stop: 09/02/21 11:35 Last Admin: 09/02/21 11:49 Dose: 6 mg Documented by: AIMEE Gabapentin (Gabapentin 300 Mg Capsule) 900 mg PO BEDTIME [facility] Gabapentin (Gabapentin 300 Mg Capsule) 900 mg PO NOW ONE Stop: 09/02/21 17:01 Last Admin: 09/02/21 18:04 Dose: 900 mg Documented by: WADE Remdesivir 200 mg/ Sodium (Chloride) 250 mls @ 250 mls/hr IV NOW ONE Stop: 09/02/21 12:33 Last Infusion: 09/02/21 12:24 Dose: 0 mls/hr Documented by: Infusion: 09/02/21 12:24 Dose: 0 mls/hr Documented by: Admin: 09/02/21 11:58 Dose: 250 mls/hr Documented by: AIMEE Consultations Consultation #1: Dr. Hankins, accepts for admission. Plan for remdesivir and dexamethasone. Patient dropped intermittently to 89% on more than one occasion and his high risk with her history of MS. Patient has not been requiring high- flow. Time: 11:34 Vital Signs Vital signs: Vital Signs - 8 hr 09/02/21 10:30 09/02/21 11:00 09/02/21 11:30 Pulse Rate 95 H 91 H 93 H Blood Pressure Pulse Oximetry 96 97 96 09/02/21 12:00 09/02/21 12:09 09/02/21 12:19 Pulse Rate 92 H 97 H Blood Pressure 123/75 Pulse Oximetry 95 94 94 MDM - URI/Sore Throat Lab Data Result diagrams: 09/02/21 09:16 09/02/21 09:16 Labs: Lab Results 09/02/21 09/02/21 09/02/21 Range/Units 09:16 09:16 09:16 WBC 4.2 L (4.5-11.0) X10^3/uL RBC 4.67 (4.0-5.2) X10^6/uL Hgb 13.3 (12.0-16.0) g/dL Hct 40.3 (36-46) % MCV 86.3 (80-100) fL MCH 28.5 (26-34) PG MCHC 33.1 (30-36) % RDW 12.8 (11.6-14.8) % Plt Count 210 (150-400) X10^3/uL Neut % (Auto) 74.9 (50-75) % Lymph % (Auto) 13.5 L (25-40) % Harper % (Auto) 11.4 (3-14) % Eos % (Auto) 0.1 L (2-4) % Baso % (Auto) 0.1 (0-2) % Neut # (Auto) 3100 (5863-4473) /uL Lymph # (Auto) 600 L (0748-4883) /uL Harper # (Auto) 500 (0-900) /uL Eos # (Auto) 0 (0-450) /uL Baso # (Auto) 0 (0-100) /uL D-Dimer 225 (<230) ng/mL Sodium (137-145) mmol/L Potassium (3.4-5.1) mmol/L Chloride (98-107) mmol/L Carbon Dioxide (22-32) mmol/L BUN (7-17) mg/dL Creatinine (0.52-1.04) mg/dL Estimated GFR (>60) mL/min BUN/Creatinine Ratio (6-22) Glucose (70-100) mg/dL Lactate (0.7-2.1) mmol/L Calcium (8.4-10.2) mg/dL Magnesium 1.8 (1.6-2.3) mg/dL Total Bilirubin (0.2-1.3) mg/dL AST (14-36) IU/L ALT (<35) IU/L Alkaline Phosphatase (38-126) U/L Total Creatine Kinase 44 (30-135) U/L CK-MB (CK-2) TNP CK-MB (CK-2) Rel Index TNP Troponin I < 0.012 (0.01-0.034) ng/mL NT-Pro-B Natriuret Pep 74 (<125) pg/mL Total Protein (6.3-8.2) g/dL Albumin (3.5-5.0) g/dL Globulin (1.7-4.1) g/dL Albumin/Globulin Ratio (1.0-2.8) Procalcitonin 0.05 (<0.5) ng/mL SARS-CoV-2 (PCR) (Negative) 09/02/21 09/02/21 09/02/21 Range/Units 09:16 09:16 09:21 WBC (4.5-11.0) X10^3/uL RBC (4.0-5.2) X10^6/uL Hgb (12.0-16.0) g/dL Hct (36-46) % MCV (80-100) fL MCH (26-34) PG MCHC (30-36) % RDW (11.6-14.8) % Plt Count (150-400) X10^3/uL Neut % (Auto) (50-75) % Lymph % (Auto) (25-40) % Harper % (Auto) (3-14) % Eos % (Auto) (2-4) % Baso % (Auto) (0-2) % Neut # (Auto) (4093-8741) /uL Lymph # (Auto) (4568-3371) /uL Harper # (Auto) (0-900) /uL Eos # (Auto) (0-450) /uL Baso # (Auto) (0-100) /uL D-Dimer (<230) ng/mL Sodium 136 L (137-145) mmol/L Potassium 4.0 (3.4-5.1) mmol/L Chloride 99 (98-107) mmol/L Carbon Dioxide 29 (22-32) mmol/L BUN 9 (7-17) mg/dL Creatinine 0.66 (0.52-1.04) mg/dL Estimated GFR > 60.0 (>60) mL/min BUN/Creatinine Ratio 13.6 (6-22) Glucose 92 (70-100) mg/dL Lactate 0.8 (0.7-2.1) mmol/L Calcium 8.5 (8.4-10.2) mg/dL Magnesium (1.6-2.3) mg/dL Total Bilirubin 0.3 (0.2-1.3) mg/dL AST 37 H (14-36) IU/L ALT 22 (<35) IU/L Alkaline Phosphatase 70 (38-126) U/L Total Creatine Kinase (30-135) U/L CK-MB (CK-2) CK-MB (CK-2) Rel Index Troponin I (0.01-0.034) ng/mL NT-Pro-B Natriuret Pep (<125) pg/mL Total Protein 6.5 (6.3-8.2) g/dL Albumin 3.8 (3.5-5.0) g/dL Globulin 2.7 (1.7-4.1) g/dL Albumin/Globulin Ratio 1.4 (1.0-2.8) Procalcitonin (<0.5) ng/mL SARS-CoV-2 (PCR) Positive H (Negative) Point of Care Testing Glucose POC 184 Imaging Data Chest x-ray: Radiologist's Impression: Launch?[address] [address] XRay Report Signed Patient: Herminia Pires MR#: [id number] : 1970 Acct:[id number] Age/Sex: 50 / F Date of Service: 09/02/21 Loc: ED Accession Number: [id number] ?? Procedure: XR chest 2V Ordering Provider: Melani Urena D.O. PROCEDURE:? XR CHEST 2V ? INDICATIONS:? cough x 30 days.? crackles b/l bases. ? TECHNIQUE:? 2 views of the chest were acquired.? ? COMPARISON:? [facility], , CHEST 2 VIEW, 07/09/2012, 10:11. ? FINDINGS:? ? Surgical changes and devices:? None.? ? Lungs and pleura:? Bibasilar atelectasis and or infiltrate in the posterior cos tophrenic sulci accentuated by low lung volumes. ? Mediastinum:? Mediastinal contours are normal.? Heart size is normal.? ? Bones and chest wall:? No suspicious bony abnormalities.? Soft tissues appear unremarkable.? ? IMPRESSION:? ? Bibasilar atelectasis and or infiltrate accentuated by low lung volumes. ? ? ? Approved by: Malik Cisse M.D. on 09/02/2021 at 8:56? ECG Data Attestation: I personally reviewed and interpreted this ECG as follows: Prior ECG tracings: available for review Interpretation: Sinus rhythm, rate 88, OH 168, P QRS is 72 and QTC 399. No acute ST changes appreciated. Patient has prior EKG which appears similar to today's. MDM Narrative Medical decision making narrative: This is a 50-year-old female comes in with complaint of cough for the past 30 days to month but does have a negative COVID test about 2 weeks ago. She has crackles at her bases. Lab work does not show major abnormalities but she is COVID positive with changes on her chest x-ray and labs do not suggest an overlying bacterial infection. There is no signs of cardiac dysfunction elevation in BNP or troponin. Patient was started on O2 you via nasal cannula which has brought her up to the mid 90s. Plan for admission with remdesivir and dexamethasone. Discharge Plan Departure Patient Disposition: Admitted As Inpatient Clinical Impression: Pneumonia due to COVID-19 virus Admit Date/Time: 09/02/21 12:46 Admit Provider: Amador Hankins
[2021-09-02 09:34] LABS: Add Manual Diff / Slide Review NO; Basophils Absolute Auto 0 /uL (0-100); Basophils Percent Auto 0.1 % (0-2); Eosinophils Absolute Auto 0 /uL (0-450); Eosinophils Percent Auto 0.1 % (2-4); Hematocrit 40.3 % (36-46); Hemoglobin 13.3 g/dL (12.0-16.0); Lymphocytes Absolute Auto 600 /uL (1100-4500); Lymphocytes Percent Auto 13.5 % (25-40); Mean Corpuscular HGB Conc 33.1 % (30-36); Mean Corpuscular Hemoglobin 28.5 PG (26-34); Mean Corpuscular Volume 86.3 fL (80-100); Monocytes Absolute Auto 500 /uL (0-900); Monocytes Percent Auto 11.4 % (3-14); Neutrophils Absolute Auto 3100 /uL (1500-7000); Neutrophils Percent Auto 74.9 % (50-75); Platelet Count 210 X10^3/uL (150-400); Red Blood Cell Count 4.67 X10^6/uL (4.0-5.2); Red Cell Distribution Width 12.8 % (11.6-14.8); White Blood Cell Count 4.2 X10^3/uL (4.5-11.0)
[2021-09-02 09:39] LABS: COVID19 -Nasal RAPID POSITIVE (Negative)
[2021-09-02 09:40] LABS: Creatine Kinase 44 U/L (30-135); D Dimer 225 ng/mL (<230); Magnesium 1.8 mg/dL (1.6-2.3)
[2021-09-02 09:41] LABS: Lactate (Lactic Acid) 0.8 mmol/L (0.7-2.1)
[2021-09-02 09:54] LABS: NT-proBNP (BNP-Adult 18+) 74 pg/mL (<125); Troponin I < 0.012 ng/mL (0.01-0.034)
[2021-09-02 09:58] LABS: Procalcitonin 0.05 ng/mL (<0.5)
[2021-09-02 10:15] LABS: Alanine Aminotransferase 22 IU/L (<35); Albumin 3.8 g/dL (3.5-5.0); Albumin Globulin Ratio 1.4 (1.0-2.8); Alkaline Phosphatase 70 U/L (38-126); Aspartate Aminotransferase 37 IU/L (14-36); BUN Creatinine Ratio 13.6 (6-22); Bilirubin Total 0.3 mg/dL (0.2-1.3); Blood Urea Nitrogen 9 mg/dL (7-17); Calcium 8.5 mg/dL (8.4-10.2); Carbon Dioxide 29 mmol/L (22-32); Chloride 99 mmol/L (98-107); Estimated Glomerular Filt Rate > 60.0 mL/min (>60); Globulin 2.7 g/dL (1.7-4.1); Glucose 92 mg/dL (70-100); HEMOLYSIS < 15 (0-50); Sodium 136 mmol/L (137-145); Total Protein 6.5 g/dL (6.3-8.2)
--- NOTE | 2021-09-02 10:32 | PC.NURSE ---
Patient O2 @ 89%, placed on 3L O2, now 95%. Dr hendricks.
[2021-09-02] MEDS: DEXAMETHASONE 10 MG/ML VIAL 6 MG IV (11:49)
[2021-09-02] MEDS: REMDESIVIR 200 MG in SODIUM CHLORIDE 0.9% 210 ML 250 ML IV (11:58)
--- NOTE | 2021-09-02 13:32 | PC.NURSE ---
Admit note: Patient admitted to room 210, ambulated from WC to bed independently. Placed on O2 at 3L via NC, sats 91-93%. Oriented to room, environment, and plan of care. Very [place] to right ear. Call light within reach.
--- NOTE | 2021-09-02 17:15 | PM.HP.1 ---
History of Present Illness History of Present Illness Date Patient Seen: 09/02/21 Time Patient Seen: 16:45 Chief complaint: coughing, throwing up Narrative: This is a 50-year-old female with a past medical history of multiple sclerosis, rheumatoid arthritis who presented minimally productive cough x 2 weeks, progressive shortness of breath. She decided to come to the emergency room today because she felt like she could not breathe. Her shortness of breath has been primarily with exertion over the past couple of days, she minimally noticed any symptoms other than cough which was minimally productive of clear sputum for the past 2 weeks. She denies any fever, chills, nausea, vomiting, abdominal pain, dysuria, urinary frequency, diarrhea. Patient was vaccinated with the Abisai & Abisai vaccine in April. She has been very cautious and has no known sick exposures. No one around her has been sick that she is aware of. In the emergency room, the patient was mildly hypertensive, and hypoxic to 89% on room air. She improved with 1-2L of oxygen. She does desaturate a bit more into the mid 80s on my exam with minimal exertion. Initial laboratory evaluation revealed a fairly unremarkable CBC, normal D-dimer at 225, and unremarkable chemistry panel. COVID-19 testing was positive. Procalcitonin was negative at 0.05. Patient was admitted for acute respiratory failure due to COVID-19. Patient History Medical History (Updated 09/02/21 @ 17:31 by Amador Hankins DO) Depression Fibromyalgia Multiple sclerosis Rheumatoid arthritis Surgical History H/O shoulder surgery Family & Social History Family History Family/Other Multiple sclerosis Father Cancer Safety & Behavioral: Feels Safe in Current Yes Environment Been Physically Hurt or No Threatened By a Person Tobacco & Substance use: Smoking Status Former smoker alcohol intake frequency 0-2 drinks per day Substance Use Type does not use Meds Home Medications and Allergies Home Medications Medication Instructions Recorded Confirmed Type Glucosamine Sulfate (#GLUCOSAMINE) 3,000 mg PO DAILY #0 08/10/12 09/02/21 History MULTIVITAMIN (#MULTIPLE VITAMINS) 1 cap PO QDAY #0 08/10/12 09/02/21 History acetaminophen 500 mg tablet 1,000 mg PO Q6HP #0 08/10/12 09/02/21 History (Tylenol Extra Strength) cetirizine 10 mg tablet 10 mg PO QDAY #0 08/10/12 09/02/21 History cholecalciferol (vitamin D3) 25 3,000 iu PO DAILY #0 08/10/12 09/02/21 History mcg (1,000 unit) tablet (Vitamin D3) citalopram 20 mg tablet (Celexa) 20 mg PO QDAY #0 08/10/12 09/02/21 History gabapentin 300 mg capsule 900 mg PO HS #0 08/25/12 09/02/21 History (Neurontin) calcium citrate 200 mg (950 mg) 2,000 mg PO BID #0 10/08/16 09/02/21 History tablet magnesium oxide 400 mg PO QDAY #0 10/08/16 09/02/21 History pantoprazole 40 mg tablet,delayed 40 mg PO 0600 #60 10/23/16 09/02/21 Rx release duloxetine 60 mg capsule,delayed 60 mg PO QDAY #0 06/20/17 09/02/21 History release (Cymbalta) amoxicillin 875 mg-potassium 1 tab PO BID #20 tab 03/04/21 09/02/21 Rx clavulanate 125 mg tablet (Augmentin) Allergies Allergy/AdvReac Type Severity Reaction Status Date / Time adhesive Allergy Severe BLISTER, Verified 03/13/19 10:33 SKIN COMES OFF capsaicin [CAPSAICIN] Allergy Severe ANAPHYLAXIS Verified 03/13/19 10:33 shellfish derived Allergy Severe ANAPHYLAXIS Verified 03/13/19 10:33 [SHELLFISH DERIVED] latex [LATEX] Allergy Intermediate BLISTER, Verified 03/13/19 10:33 HIVES oxycodone [From PERCOCET] Allergy Intermediate HIVES Verified 03/13/19 10:33 acetaminophen [From PERCOCET] AdvReac Intermediate HIVES Verified 03/13/19 10:33 Review of Systems Review of Systems Narrative: All other systems reviewed with the patient and are negative unless otherwise stated. Exam Vital Signs (past 8 hours): - 09/02/21 09:48 09/02/21 10:00 09/02/21 10:02 Temperature Pulse Rate 89 91 H Respiratory Rate Blood Pressure Pulse Oximetry 93 94 89 L 09/02/21 10:04 09/02/21 10:30 09/02/21 11:00 Temperature Pulse Rate 95 H 91 H Respiratory Rate Blood Pressure Pulse Oximetry 96 96 97 09/02/21 11:30 09/02/21 12:00 09/02/21 12:09 Temperature Pulse Rate 93 H 92 H 97 H Respiratory Rate Blood Pressure 123/75 Pulse Oximetry 96 95 94 09/02/21 12:19 09/02/21 13:05 09/02/21 15:25 Temperature 99.4 F 97.9 F Pulse Rate 92 H 85 Respiratory Rate 24 20 Blood Pressure 130/81 148/84 H Pulse Oximetry 94 91 91 Oxygen Delivery Method Nasal Cannula Oxygen Flow Rate 3 Narrative Exam Narrative: GENERAL APPEARANCE: Well developed, well nourished, in no acute distress. SKIN: Inspection of the skin reveals no rashes, ulcerations or petechiae. HEENT: Normocephalic atraumatic, extraocular muscles are intact, oropharynx is clear and mucous membranes are moist, neck is supple without adenopathy NECK: Supple and symmetric. There was no thyroid enlargement, and no tenderness, or masses were felt. CHEST: Normal AP diameter and normal contour without any kyphoscoliosis. LUNGS: Auscultation of the lungs revealed no wheezes, rhonchi, or rales. CARDIOVASCULAR: There was a regular rate and rhythm without any murmurs, gallops, rubs. Peripheral pulses were 2+ and symmetric. ABDOMEN: S NT ND MUSCULOSKELETAL: There was no tenderness or effusions noted. Muscle strength and tone were normal. EXTREMITIES: No cyanosis, clubbing or edema. NEUROLOGIC: Alert and oriented x 3. Normal affect. No focal deficits. Objective ECG Impression: NSR with s1q3t3 pattern. Imaging Chest x-ray: My impression: mild interstital opacities bilaterally worsened at the lung bases. Radiologist's impression: PROCEDURE:? XR CHEST 2V ? INDICATIONS:? cough x 30 days.? crackles b/l bases. ? TECHNIQUE:? 2 views of the chest were acquired.? ? COMPARISON:? [facility], , CHEST 2 VIEW, 07/09/2012, 10:11. ? FINDINGS:? ? Surgical changes and devices:? None.? ? Lungs and pleura:? Bibasilar atelectasis and or infiltrate in the posterior costophrenic sulci accentuated by low lung volumes. ? Mediastinum:? Mediastinal contours are normal.? Heart size is normal.? ? Bones and chest wall:? No suspicious bony abnormalities.? Soft tissues appear unremarkable.? ? IMPRESSION:? ? Bibasilar atelectasis and or infiltrate accentuated by low lung volumes. Labs Result Diagrams: 09/02/21 09:16 09/02/21 09:16 Labs: Laboratory Results - last 24 hr 09/02/21 09/02/21 09/02/21 09:16 09:16 09:16 WBC 4.2 L RBC 4.67 Hgb 13.3 Hct 40.3 MCV 86.3 MCH 28.5 MCHC 33.1 RDW 12.8 Plt Count 210 Neut % (Auto) 74.9 Lymph % (Auto) 13.5 L [place] % (Auto) 11.4 Eos % (Auto) 0.1 L Baso % (Auto) 0.1 Neut # (Auto) 3100 Lymph # (Auto) 600 L [place] # (Auto) 500 Eos # (Auto) 0 Baso # (Auto) 0 D-Dimer 225 Sodium Potassium Chloride Carbon Dioxide BUN Creatinine Estimated GFR BUN/Creatinine Ratio Glucose Lactate Calcium Magnesium 1.8 Total Bilirubin AST ALT Alkaline Phosphatase Total Creatine Kinase 44 CK-MB (CK-2) TNP CK-MB (CK-2) Rel Index TNP Troponin I < 0.012 NT-Pro-B Natriuret Pep 74 Total Protein Albumin Globulin Albumin/Globulin Ratio Procalcitonin 0.05 SARS-CoV-2 (PCR) 09/02/21 09/02/21 09/02/21 09:16 09:16 09:21 WBC RBC Hgb Hct MCV MCH MCHC RDW Plt Count Neut % (Auto) Lymph % (Auto) [place] % (Auto) Eos % (Auto) Baso % (Auto) Neut # (Auto) Lymph # (Auto) [place] # (Auto) Eos # (Auto) Baso # (Auto) D-Dimer Sodium 136 L Potassium 4.0 Chloride 99 Carbon Dioxide 29 BUN 9 Creatinine 0.66 Estimated GFR > 60.0 BUN/Creatinine Ratio 13.6 Glucose 92 Lactate 0.8 Calcium 8.5 Magnesium Total Bilirubin 0.3 AST 37 H ALT 22 Alkaline Phosphatase 70 Total Creatine Kinase CK-MB (CK-2) CK-MB (CK-2) Rel Index Troponin I NT-Pro-B Natriuret Pep Total Protein 6.5 Albumin 3.8 Globulin 2.7 Albumin/Globulin Ratio 1.4 Procalcitonin SARS-CoV-2 (PCR) Positive H Assessment & Plan Assessment & Plan narrative: 1. Acute respiratory failure with hypoxia - continue decadron and remdesevir therapy. Goal O2 >90% while on supplemental oxygen. Continue to wean supplemental O2 as tolerated. - s1q3t3 pattern on EKG, though no tachycardia and it is a non-specific finding. Negative D-dimer makes PE unlikely. Consider CT Angio PE protocol if worsening hypoxia. - patient vaccinated with J&J in 04/2021. - will check CRP and ferritin in AM for inflammatory markers. - CXR with probable mild disease thus far with basilar involvement. 2. COVID-19 pneumonia - treatment as noted above 3. Multiple sclerosis - continue home medications Code: Full, surrogate decision maker would be spouse Dispo: Admit as inpatient DVT: Lovenox daily I have utilized all available immediate resources to obtain, update, or review the patient's current medications. COVID-19 COVID-19 status: Positive Time Spent With Patient Critical Care time: I spent a total of [] minutes of critical care time on this patient's care today; this time is exclusive of procedural time. Quality MIPS - Admit I confirm the patient?s Advance Care Plan is present, Code status is documented, Surrogate decision maker is in patient?s record [If Yes, STOP here]: Yes
[2021-09-02] MEDS: GABAPENTIN 300 MG CAPSULE 900 MG PO ×2 (18:04→20:06)
[2021-09-02] MEDS: DULOXETINE 30 MG CAPSULE 60 MG PO (20:06)
[2021-09-02] MEDS: BACLOFEN 10 MG TABLET 40 MG PO (21:45)
[2021-09-03] VITALS (19 sets, daily range): BP systolic 119–141; BP diastolic 65–90; PULSE 79–98; RESP 16–18; TEMP 36.6–37.7; O2SAT 87–96
[2021-09-03] MEDS: PANTOPRAZOLE DR 40 MG TABLET PO (05:02)
--- NOTE | 2021-09-03 05:27 | RT ---
Paged by RN that pt sat up in bed to use the bathroom and desat to 89%-90%. Increased pt to 6 LPM NC, SpO2 90%-91%. Instructed pt on IS and pt achieved 1000 mL with great technique. Pt coughed up small, yellow-orange, thick sputum. Pt still desat to 88%-89%. Placed pt on 15 LPM NRB, SpO2 improved to 96% at 0519. RN aware.
--- NOTE | 2021-09-03 05:32 | PC.NURSE ---
Addendum entered by Tosha Daniels R.N. 09/03/21 05:41: ANDREY Jacob aware that pt is requiring more oxygen Original Note: Pt c/o sob this am around 0445, pt was in bed sating low 80's on 3 L NC, RT was notify. Pt was still speaking in full sentence, Oxygen was increase to 6 L and saturation continue to be in the high 80's. IS was brought in, pt going up to 1,000. Once RT came in the room she was switch to a non rebreather mask at 15 L. Pt now sating in the upper 90's.
[2021-09-03 06:45] LABS: Add Manual Diff / Slide Review NO; Basophils Absolute Auto 0 /uL (0-100); Basophils Percent Auto 0.2 % (0-2); Eosinophils Absolute Auto 0 /uL (0-450); Eosinophils Percent Auto 0.1 % (2-4); Hematocrit 40.1 % (36-46); Hemoglobin 13.4 g/dL (12.0-16.0); Lymphocytes Absolute Auto 900 /uL (1100-4500); Lymphocytes Percent Auto 19.1 % (25-40); Mean Corpuscular HGB Conc 33.3 % (30-36); Mean Corpuscular Hemoglobin 28.5 PG (26-34); Mean Corpuscular Volume 85.5 fL (80-100); Monocytes Absolute Auto 600 /uL (0-900); Monocytes Percent Auto 13.8 % (3-14); Neutrophils Absolute Auto 3000 /uL (1500-7000); Neutrophils Percent Auto 66.8 % (50-75); Platelet Count 222 X10^3/uL (150-400); Red Blood Cell Count 4.69 X10^6/uL (4.0-5.2); Red Cell Distribution Width 13.1 % (11.6-14.8); White Blood Cell Count 4.6 X10^3/uL (4.5-11.0)
[2021-09-03 07:00] LABS: Alanine Aminotransferase 20 IU/L (<35); Albumin 3.6 g/dL (3.5-5.0); Albumin Globulin Ratio 1.4 (1.0-2.8); Alkaline Phosphatase 61 U/L (38-126); Aspartate Aminotransferase 34 IU/L (14-36); BUN Creatinine Ratio 18.6 (6-22); Bilirubin Total 0.3 mg/dL (0.2-1.3); Blood Urea Nitrogen 11 mg/dL (7-17); Calcium 8.4 mg/dL (8.4-10.2); Carbon Dioxide 29 mmol/L (22-32); Chloride 100 mmol/L (98-107); Estimated Glomerular Filt Rate > 60.0 mL/min (>60); Globulin 2.6 g/dL (1.7-4.1); Glucose 88 mg/dL (70-100); HEMOLYSIS < 15 (0-50); Sodium 136 mmol/L (137-145); Total Protein 6.2 g/dL (6.3-8.2)
[2021-09-03 07:35] LABS: Ferritin 164 ng/mL (11-264)
[2021-09-03] MEDS: ENOXAPARIN 40 MG/0.4 ML SYRINGE SUBCUT (08:22)
[2021-09-03] MEDS: GABAPENTIN 300 MG CAPSULE 900 MG PO ×2 (12:15→20:18)
--- NOTE | 2021-09-03 14:24 | CM.DANOTE ---
DCP: Case received, EMR reviewed and called patient in her room, since she is COVID positive. Introduced self over the phone. Was able to obtain information regarding patient's baseline activity level prior to hospitalization. DCP assessment completed with information currently available. Patient is a 50 year old female who admitted yesterday afternoon to the care of the hospitalist team. PCP: Dr. Sujatha Curiel. Payer: confirmed: [facility]. Patient came to the hospital via private vehicle secondary to increased coughing and emesis. Patient holds current diagnoses of COVID19/Pneumonia. Patient also has history of MS. Patient was vaccinated. Called patient in her room, since she is COVID positive. She resides in [place] with her spouse, Tyesha. She is independent at her baseline, and is employed at [employer]. P: DCP to continue to follow. Patient should be able to go home when she is deemed medically stable. Patricia Zepeda RN/Memory Care Program Resident Discharge Planning/Care Management CM Discharge Assessment Start: 09/03/21 14:21 Freq: Status: Active Protocol: Document 09/03/21 14:22 (Rec: 09/03/21 14:23 [id number]) Discharge Planning Assessment Assigned Traffic Control Specialist Patricia Zepeda RN/Memory Care Program Resident Advance Directives? No History Provided By Patient,Medical Record Prior Living Arrangements House Household Members spouse Type of transporation used prior to Drives own vehicle admit Independent with ADL's Yes Is patient alert and oriented? Yes Caregiver for Another No Barriers to Discharge No Discharge Plan Home Transportation Arrangement Spouse Referrals Initiated None needed Whiteboard Updated in Patient Room with No name and ext. # of Traffic Control Specialist Comment Patient is COVID positive Review Status In Process Next Review Type Continued Stay Review
--- NOTE | 2021-09-03 17:27 | P.PN_ITS ---
Subjective Subjective Interval history: The patient denies any acute complaints this morning. She is asking about potential for monoclonal antibody inpatient, since she has multiple sclerosis. Exam Vital Signs (past 8 hours): - 09/03/21 09:30 09/03/21 11:30 09/03/21 14:00 Temperature 99.1 F Pulse Rate 84 Respiratory Rate 16 16 Blood Pressure 120/75 Pulse Oximetry 94 95 94 09/03/21 14:22 09/03/21 15:30 Temperature 99.9 F H Pulse Rate 95 H Respiratory Rate 18 Blood Pressure 128/75 Pulse Oximetry 95 92 Oxygen Delivery Method High Flow Nasal Cannula Oxygen Flow Rate 4 Const Other: Patient sitting up in bed comfortably upon my entering the room, in no apparent acute distress. Eyes Other: No scleral icterus appreciated. Resp Other: Diminished breath sounds bilaterally, with faint end-expiratory wheezing. Cardio Other: Regular rate and rhythm. S1 and S2 heart sounds heard with no extra heart sounds or murmurs appreciated. Skin Other: No divina skin lesions/abnormalities appreciated. Extrem Other: Palpable and equal bilateral dorsalis pedis and radial pulses. Objective Labs Result Diagrams: 09/03/21 06:25 09/03/21 06:25 Labs: Laboratory Results - last 24 hr 09/03/21 09/03/21 09/03/21 06:25 06:25 06:25 WBC 4.6 RBC 4.69 Hgb 13.4 Hct 40.1 MCV 85.5 MCH 28.5 MCHC 33.3 RDW 13.1 Plt Count 222 Neut % (Auto) 66.8 Lymph % (Auto) 19.1 L [place] % (Auto) 13.8 Eos % (Auto) 0.1 L Baso % (Auto) 0.2 Neut # (Auto) 3000 Lymph # (Auto) 900 L [place] # (Auto) 600 Eos # (Auto) 0 Baso # (Auto) 0 Sodium 136 L Potassium 4.0 Chloride 100 Carbon Dioxide 29 BUN 11 Creatinine 0.59 Estimated GFR > 60.0 BUN/Creatinine Ratio 18.6 Glucose 88 Calcium 8.4 Ferritin 164 Total Bilirubin 0.3 AST 34 ALT 20 Alkaline Phosphatase 61 C-Reactive Protein 4.0 H Total Protein 6.2 L Albumin 3.6 Globulin 2.6 Albumin/Globulin Ratio 1.4 PFSH Medical History (Updated 09/02/21 @ 17:31 by Amador Hankins DO) Depression Fibromyalgia Multiple sclerosis Rheumatoid arthritis Surgical History H/O shoulder surgery Family History Family/Other Multiple sclerosis Father Cancer Social History household members: spouse Smoking Status: Former smoker Assessment & Plan Assessment & Plan narrative: Assessment: 1. Acute hypoxic respiratory failure secondary to COVID-19 pneumonia 2. Hx of multiple sclerosis 3. Hx of depression 4. Hx of fibromyalgia 5. GERD Plan: 1. Will continue respiratory support. IV dexamethasone on-board. 2. Patient follows with outpatient neurologist. Takes gabapentin for neuropathy and baclofen for spasticity. 3. Will continue home citalopram 20 mg daily. 4. Will cotninue home duloxetine 60 mg daily. 5. Will continue home Protonix. VTE prophylaxis: Lovenox 40 mg daily Disposition: Home Time Spent With Patient Critical Care time: I spent a total of [] minutes of critical care time on this patient's care today; this time is exclusive of procedural time.
[2021-09-03] MEDS: BACLOFEN 10 MG TABLET 40 MG PO (20:18)
[2021-09-03] MEDS: DULOXETINE 30 MG CAPSULE 60 MG PO (20:18)
[2021-09-03] MEDS: DEXAMETHASONE 10 MG/ML VIAL 6 MG IV (22:12)
[2021-09-03] MEDS: REMDESIVIR 100 MG in SODIUM CHLORIDE 0.9% 230 ML 250 ML IV (22:12)
[2021-09-04] VITALS (9 sets, daily range): BP systolic 121–136; BP diastolic 79–84; PULSE 75–98; RESP 17–18; TEMP 36.4–36.8; O2SAT 92–96
--- NOTE | 2021-09-04 03:58 | PC.NURSE ---
Pt c/o shortness of breath when up to the bathroom, able to recuperate easily. Continues to be on 4L high flow. Lungs are diminished throughout.
[2021-09-04] MEDS: PANTOPRAZOLE DR 40 MG TABLET PO (06:10)
[2021-09-04 07:06] LABS: Alanine Aminotransferase 19 IU/L (<35); Albumin 3.8 g/dL (3.5-5.0); Albumin Globulin Ratio 1.4 (1.0-2.8); Alkaline Phosphatase 61 U/L (38-126); Aspartate Aminotransferase 34 IU/L (14-36); BUN Creatinine Ratio 15.4 (6-22); Bilirubin Total 0.2 mg/dL (0.2-1.3); Blood Urea Nitrogen 10 mg/dL (7-17); Calcium 8.7 mg/dL (8.4-10.2); Carbon Dioxide 30 mmol/L (22-32); Chloride 101 mmol/L (98-107); Estimated Glomerular Filt Rate > 60.0 mL/min (>60); Globulin 2.8 g/dL (1.7-4.1); Glucose 123 mg/dL (70-100); HEMOLYSIS < 15 (0-50); Potassium 4.9 mmol/L (3.4-5.1); Sodium 139 mmol/L (137-145); Total Protein 6.6 g/dL (6.3-8.2)
[2021-09-04 07:52] LABS: Add Manual Diff / Slide Review NO; Basophils Absolute Auto 0 /uL (0-100); Basophils Percent Auto 0.1 % (0-2); Eosinophils Absolute Auto 0 /uL (0-450); Hematocrit 43.2 % (36-46); Hemoglobin 14.4 g/dL (12.0-16.0); Lymphocytes Absolute Auto 600 /uL (1100-4500); Lymphocytes Percent Auto 14.5 % (25-40); Mean Corpuscular HGB Conc 33.3 % (30-36); Mean Corpuscular Hemoglobin 28.4 PG (26-34); Mean Corpuscular Volume 85.2 fL (80-100); Monocytes Absolute Auto 400 /uL (0-900); Monocytes Percent Auto 9.4 % (3-14); Neutrophils Absolute Auto 3000 /uL (1500-7000); Platelet Count 251 X10^3/uL (150-400); Red Blood Cell Count 5.07 X10^6/uL (4.0-5.2)
[2021-09-04] MEDS: ENOXAPARIN 40 MG/0.4 ML SYRINGE SUBCUT (09:01)
[2021-09-04] MEDS: GABAPENTIN 300 MG CAPSULE 900 MG PO ×2 (13:41→20:59)
--- NOTE | 2021-09-04 16:58 | P.PN_ITS ---
Subjective Subjective Interval history: Patient reports that her breathing status continues to improve. She denies any acute complaints. Exam Vital Signs (past 8 hours): - 09/04/21 09:50 09/04/21 16:14 Temperature 97.5 F L 98.2 F Pulse Rate 80 75 Respiratory Rate 18 18 Blood Pressure 121/84 126/79 Pulse Oximetry 92 93 Oxygen Delivery Method High Flow Nasal Cannula Oxygen Flow Rate 4 Narrative Exam Narrative: Const Other: Patient sitting up in bed comfortably upon my entering the room, in no apparent acute distress. Eyes Other: No scleral icterus appreciated. Resp Other: Diminished breath sounds bilaterally, with faint end-expiratory wheezing. Cardio Other: Regular rate and rhythm. S1 and S2 heart sounds heard with no extra heart sounds or murmurs appreciated. Skin Other: No divina skin lesions/abnormalities appreciated. Extrem Other: Palpable and equal bilateral dorsalis pedis and radial pulses. Objective Labs Result Diagrams: 09/04/21 05:43 09/04/21 05:43 Labs: Laboratory Results - last 24 hr 09/04/21 09/04/21 05:43 05:43 WBC 4.0 L RBC 5.07 Hgb 14.4 Hct 43.2 MCV 85.2 MCH 28.4 MCHC 33.3 RDW 13.0 Plt Count 251 Neut % (Auto) 76.0 H Lymph % (Auto) 14.5 L [place] % (Auto) 9.4 Eos % (Auto) 0.0 L Baso % (Auto) 0.1 Neut # (Auto) 3000 Lymph # (Auto) 600 L [place] # (Auto) 400 Eos # (Auto) 0 Baso # (Auto) 0 Sodium 139 Potassium 4.9 Chloride 101 Carbon Dioxide 30 BUN 10 Creatinine 0.65 Estimated GFR > 60.0 BUN/Creatinine Ratio 15.4 Glucose 123 H Calcium 8.7 Total Bilirubin 0.2 AST 34 ALT 19 Alkaline Phosphatase 61 Total Protein 6.6 Albumin 3.8 Globulin 2.8 Albumin/Globulin Ratio 1.4 [facility] Medical History (Updated 09/02/21 @ 17:31 by Amador Hankins DO) Depression Fibromyalgia Multiple sclerosis Rheumatoid arthritis Surgical History H/O shoulder surgery Family History Family/Other Multiple sclerosis Father Cancer Social History household members: spouse Smoking Status: Former smoker Assessment & Plan Assessment & Plan narrative: Assessment: 1. Acute hypoxic respiratory failure secondary to COVID-19 pneumonia 2. Hx of multiple sclerosis (MS)3. Hx of rheumatoid arthritis (RA) 4. Hx of depression 5. Hx of fibromyalgia 6. GERD Plan: 1. Will continue respiratory support. IV dexamethasone on-board. 2. Patient follows with outpatient neurologist. Takes gabapentin for neuropathy and baclofen for spasticity. 3. Patient reports taking rituximab as an outpatient, both for her RA and MS. 3. The patient denies being on home citalopram 20 mg daily any more. Will continue home duloxetine. 4. Will continue home duloxetine 60 mg daily. 5. Will continue home Protonix. VTE prophylaxis: Lovenox 40 mg daily Disposition: Home, once supplemental oxygen needs sufficiently improve Time Spent With Patient Critical Care time: I spent a total of [] minutes of critical care time on this patient's care today; this time is exclusive of procedural time.
[2021-09-04] MEDS: DEXAMETHASONE 10 MG/ML VIAL 6 MG IV (20:59)
[2021-09-04] MEDS: BACLOFEN 10 MG TABLET 40 MG PO (20:59)
[2021-09-04] MEDS: REMDESIVIR 100 MG in SODIUM CHLORIDE 0.9% 230 ML 250 ML IV (21:00)
[2021-09-04] MEDS: DULOXETINE 30 MG CAPSULE 60 MG PO (21:11)
[2021-09-04] MEDS: IBUPROFEN 600 MG TABLET PO (21:19)
[2021-09-05] VITALS (10 sets, daily range): BP systolic 115–133; BP diastolic 78–85; PULSE 69–77; RESP 18; TEMP 35.9–36.7; O2SAT 93–98
[2021-09-05] MEDS: BACLOFEN 10 MG TABLET 20 MG PO (01:31)
[2021-09-05] MEDS: PANTOPRAZOLE DR 40 MG TABLET PO (06:21)
[2021-09-05 06:47] LABS: Add Manual Diff / Slide Review NO; Basophils Absolute Auto 0 /uL (0-100); Basophils Percent Auto 0.6 % (0-2); Eosinophils Absolute Auto 0 /uL (0-450); Eosinophils Percent Auto 0.6 % (2-4); Hematocrit 39.5 % (36-46); Hemoglobin 13.4 g/dL (12.0-16.0); Lymphocytes Absolute Auto 1200 /uL (1100-4500); Lymphocytes Percent Auto 27.1 % (25-40); Mean Corpuscular HGB Conc 33.8 % (30-36); Mean Corpuscular Hemoglobin 28.6 PG (26-34); Mean Corpuscular Volume 84.8 fL (80-100); Monocytes Absolute Auto 600 /uL (0-900); Monocytes Percent Auto 14.8 % (3-14); Neutrophils Absolute Auto 2400 /uL (1500-7000); Neutrophils Percent Auto 56.9 % (50-75); Platelet Count 245 X10^3/uL (150-400); Red Blood Cell Count 4.66 X10^6/uL (4.0-5.2); White Blood Cell Count 4.3 X10^3/uL (4.5-11.0)
[2021-09-05 06:57] LABS: Alanine Aminotransferase 17 IU/L (<35); Albumin 3.4 g/dL (3.5-5.0); Albumin Globulin Ratio 1.4 (1.0-2.8); Alkaline Phosphatase 61 U/L (38-126); Aspartate Aminotransferase 31 IU/L (14-36); BUN Creatinine Ratio 16.2 (6-22); Bilirubin Total 0.2 mg/dL (0.2-1.3); Blood Urea Nitrogen 11 mg/dL (7-17); Calcium 8.3 mg/dL (8.4-10.2); Carbon Dioxide 29 mmol/L (22-32); Chloride 103 mmol/L (98-107); Estimated Glomerular Filt Rate > 60.0 mL/min (>60); Globulin 2.4 g/dL (1.7-4.1); Glucose 87 mg/dL (70-100); HEMOLYSIS < 15 (0-50); Potassium 3.4 mmol/L (3.4-5.1); Sodium 139 mmol/L (137-145); Total Protein 5.8 g/dL (6.3-8.2)
[2021-09-05] MEDS: ENOXAPARIN 40 MG/0.4 ML SYRINGE SUBCUT (10:00)
[2021-09-05] MEDS: GABAPENTIN 300 MG CAPSULE 900 MG PO ×2 (11:38→20:40)
--- NOTE | 2021-09-05 15:01 | PM.PN.1 ---
Subjective Subjective Interval history: Patient reports slight improvement in her respiratory status today. However, she does endorse desaturating into the mid-80's with ambulation, although she states she recovers pretty quickly when sits down. Exam Vital Signs (past 8 hours): - 09/06/21 09:07 09/06/21 09:40 09/06/21 12:09 Temperature 96.8 F L Pulse Rate 91 H Respiratory Rate 16 Blood Pressure 136/96 H Pulse Oximetry 92 92 93 09/06/21 13:00 09/06/21 14:00 Temperature 97.8 F Pulse Rate 86 Respiratory Rate 16 Blood Pressure 137/91 H Pulse Oximetry 93 93 Oxygen Delivery Method Nasal Cannula Oxygen Flow Rate 0 Narrative Exam Narrative: Const Other: Patient sitting up in bed comfortably upon my entering the room, in no apparent acute distress. Eyes Other: No scleral icterus appreciated. Resp Other: Diminished breath sounds bilaterally, with faint end-expiratory wheezing. Cardio Other: Regular rate and rhythm. S1 and S2 heart sounds heard with no extra heart sounds or murmurs appreciated. Skin Other: No divina skin lesions/abnormalities appreciated. Extrem Other: Palpable and equal bilateral dorsalis pedis and radial pulses. Objective Labs Result Diagrams: 09/05/21 06:31 09/05/21 06:31 [facility] Medical History (Updated 09/02/21 @ 17:31 by Amador Hankins DO) Depression Fibromyalgia Multiple sclerosis Rheumatoid arthritis Surgical History H/O shoulder surgery Family History Family/Other Multiple sclerosis Father Cancer Social History household members: spouse Smoking Status: Former smoker Assessment & Plan Assessment & Plan narrative: Assessment: 1. Acute hypoxic respiratory failure secondary to COVID-19 pneumonia 2. Hx of multiple sclerosis (MS) 3. Hx of rheumatoid arthritis (RA) 4. Hx of depression 5. Hx of fibromyalgia 6. GERD Plan: 1. Will continue respiratory support. IV dexamethasone on-board. 2. Patient follows with outpatient neurologist. Takes gabapentin for neuropathy and baclofen for spasticity. 3. Patient reports taking rituximab as an outpatient, both for her RA and MS. This is contributing to immunosuppression in the setting of COVID. 3. The patient denies being on home citalopram 20 mg daily any more. Will continue home duloxetine. 4. Will continue home duloxetine 60 mg daily. 5. Will continue home Protonix. VTE prophylaxis: Lovenox 40 mg daily Disposition: Home, once supplemental oxygen needs sufficiently improve Time Spent With Patient Critical Care time: I spent a total of [] minutes of critical care time on this patient's care today; this time is exclusive of procedural time.
--- NOTE | 2021-09-05 15:23 | CM.DPC ---
DCP Cont: Per MD, pt with hx of MS and RA which have contributed likely to pt's COVID symptoms. Pt currently on 4LHFO2 and RT to assess for likely need of new home oxygen but MD states currently no need for PT/OT or any other identified discharge planning needs. Pt may be stable for d/c in 1-2 days pending progress. Plan: SW to follow for plan of home and any further identified discharge planning needs. Dora Lei MSW
[2021-09-05] MEDS: IBUPROFEN 600 MG TABLET PO (15:35)
--- NOTE | 2021-09-05 16:09 | DIET.PN1 ---
Dietary Progress Note Assessment: 50y F c hx MS admitted for Covid19+ status c respiratory failure screened by RD for poor POs since admission. Ht: 152.4 cm Wt: 84.368 kg BMI: 36.3 Last BM: 09/01/21 (09/02/21 12:59) MNA: 14 Bhanu Score: 22 Diet: 09/02/21 Lunch General (Regular) Diet Diet Modifications: Nutrition Percent Meal Consumed 10 09/05/21 15:40 Percent Meal Consumed only had pudding 09/04/21 17:00 Percent Meal Consumed 0% 09/04/21 10:30 Percent Meal Consumed 0% 09/03/21 18:00 Labs: RBC 4.66 X10^6/uL (4.0-5.2) 09/05/21 06:31 Hgb 13.4 g/dL (12.0-16.0) 09/05/21 06:31 Hct 39.5 % (36-46) 09/05/21 06:31 Creatinine 0.68 mg/dL (0.52-1.04) 09/05/21 06:31 Lactate 0.8 mmol/L (0.7-2.1) 09/02/21 09:16 Ferritin 164 ng/mL (11-264) 09/03/21 06:25 NT-Pro-B Natriuret Pep 74 pg/mL (<125) 09/02/21 09:16 Nutrition Diagnosis: insufficient protein energy intake r/t poor appetite aeb pt POs 0-25% x3d. Interventions: 1. Sending ONS Ensure Max c lunches to support pts protein needs. EER: 84g PRO (1g/kg) Monitoring/Evaluations: POs, ONS tolerance Electronically Signed by: Eleanor Alvarez 09/05/21 16:09 Clinical Dietitian [address] [id number]
[2021-09-05] MEDS: BACLOFEN 10 MG TABLET 40 MG PO (20:40)
[2021-09-05] MEDS: REMDESIVIR 100 MG in SODIUM CHLORIDE 0.9% 230 ML 250 ML IV (20:42)
[2021-09-05] MEDS: DULOXETINE 30 MG CAPSULE 60 MG PO (20:42)
[2021-09-05] MEDS: DEXAMETHASONE 10 MG/ML VIAL 6 MG IV (20:42)
[2021-09-06] VITALS (7 sets, daily range): BP systolic 136–137; BP diastolic 91–96; PULSE 83–91; RESP 16–18; TEMP 36–37; O2SAT 92–95
[2021-09-06] MEDS: GABAPENTIN 300 MG CAPSULE 900 MG PO ×2 (01:18→12:54)
[2021-09-06] MEDS: PANTOPRAZOLE DR 40 MG TABLET PO (05:51)
[2021-09-06] MEDS: IBUPROFEN 600 MG TABLET PO (10:14)
--- NOTE | 2021-09-06 15:06 | PM.PN.1 ---
Subjective Subjective Interval history: Patient reports feeling better today from a respiratory standpoint. She reports ambulating yesterday and dropping oxygen saturation to 88%, which is better than previous days. She's on 3 liters oxygen at rest and RT has recommended increasing to 5 liters with exertion. Exam Vital Signs (past 8 hours): - 09/06/21 09:07 09/06/21 09:40 09/06/21 12:09 Temperature 96.8 F L Pulse Rate 91 H Respiratory Rate 16 Blood Pressure 136/96 H Pulse Oximetry 92 92 93 09/06/21 13:00 09/06/21 14:00 Temperature 97.8 F Pulse Rate 86 Respiratory Rate 16 Blood Pressure 137/91 H Pulse Oximetry 93 93 Oxygen Delivery Method Nasal Cannula Oxygen Flow Rate 0 Const Other: Const Other: Patient sitting up in bed comfortably upon my entering the room, in no apparent acute distress. Eyes Other: No scleral icterus appreciated. Resp Other: Diminished breath sounds bilaterally, with faint crackles heard to mid-lungs and bases. Cardio Other: Regular rate and rhythm. S1 and S2 heart sounds heard with no extra heart sounds or murmurs appreciated. Skin Other: No divina skin lesions/abnormalities appreciated. Extrem Other: Palpable and equal bilateral dorsalis pedis and radial pulses. Objective Labs Result Diagrams: 09/05/21 06:31 09/05/21 06:31 [facility] Medical History (Updated 09/02/21 @ 17:31 by Amador Hankins DO) Depression Fibromyalgia Multiple sclerosis Rheumatoid arthritis Surgical History H/O shoulder surgery Family History Family/Other Multiple sclerosis Father Cancer Social History household members: spouse Smoking Status: Former smoker Assessment & Plan Assessment & Plan narrative: Assessment: 1. Acute hypoxic respiratory failure secondary to COVID-19 pneumonia 2. Hx of multiple sclerosis (MS) 3. Hx of rheumatoid arthritis (RA) 4. Hx of depression 5. Hx of fibromyalgia 6. GERD Plan: 1. Will continue respiratory support. Will transition IV dexamethasone to PO dexamethasone. Patient will complete 6 more days of said therapy for a total of 10 days. Patient will require supplemental oxygen at home, per RT ambulatory pulse oxygenation assessment. 2. Patient follows with outpatient neurologist. Takes gabapentin for neuropathy and baclofen for spasticity. 3. Patient reports taking rituximab as an outpatient, both for her RA and MS. This is contributing to immunosuppression in the setting of COVID. 4. The patient denies being on home citalopram 20 mg daily any more. Will continue home duloxetine. 5. Will continue home duloxetine 60 mg daily. 6. Will continue home Protonix. VTE prophylaxis: Lovenox 40 mg daily Disposition: Home today with supplemental oxygen Time Spent With Patient Critical Care time: I spent a total of [] minutes of critical care time on this patient's care today; this time is exclusive of procedural time.
--- NOTE | 2021-09-06 15:17 | P.DS_ITS ---
History of Present Illness History of Present Illness Chief complaint: coughing, throwing up Narrative: 50yo female with a hx of fibromyalgia, depression, GERD and being on immunosuppressants for multiple sclerosis and rheumatoid arthritis that presented with acute hypoxic respiratory failure secondary to COVID-19 pneumonia. She initially required high levels of supplemental oxygen. However, she improved to saturating well on 2-3 liters at rest and 4-5 liters of oxygen with ambulation. She was discharged on PO dexamethasone 6 mg once daily to take for 6 more day for a total of 10 days of therapy, with close PCP follow-up. Discharge Providers Provider Date of admission: 09/02/21 12:46 Discharge Date: 09/06/21 Primary care physician: Sujatha Curiel PA-C Consults: 09/06/21 10:24 Consult to Respiratory Therapy Evaluate & Treat Comment: eval for home O2. for discharge home. Physician Instructions: Evaluate and treat Discharge provider: Kiana Davidson MD Summary Hospital Course Discharge Diagnosis: 1. Acute hypoxic respiratory failure secondary to COVID-19 pneumonia 2. Hx of multiple sclerosis (MS) 3. Hx of rheumatoid arthritis (RA) 4. Hx of depression 5. Hx of fibromyalgia 6. GERD Hospital Course: 50yo female with a hx of fibromyalgia, depression, GERD and being on immunosuppressants for multiple sclerosis and rheumatoid arthritis that presented with acute hypoxic respiratory failure secondary to COVID-19 pneumonia. She initially required high levels of supplemental oxygen. However, she improved to saturating well on 2-3 liters at rest and 4-5 liters of oxygen with ambulation. She was discharged on PO dexamethasone 6 mg once daily to take for 6 more day for a total of 10 days of therapy, with close PCP follow-up. Exam Vital Signs (past 8 hours): - 09/06/21 09:07 09/06/21 09:40 09/06/21 12:09 Temperature 96.8 F L Pulse Rate 91 H Respiratory Rate 16 Blood Pressure 136/96 H Pulse Oximetry 92 92 93 09/06/21 13:00 09/06/21 14:00 Temperature 97.8 F Pulse Rate 86 Respiratory Rate 16 Blood Pressure 137/91 H Pulse Oximetry 93 93 Oxygen Delivery Method Nasal Cannula Oxygen Flow Rate 0 Objective Labs Result Diagrams: 09/05/21 06:31 09/05/21 06:31 [facility] Medical History (Updated 09/02/21 @ 17:31 by Amador Hankins DO) Depression Fibromyalgia Multiple sclerosis Rheumatoid arthritis Surgical History H/O shoulder surgery Family History Family/Other Multiple sclerosis Father Cancer Social History household members: spouse Smoking Status: Former smoker Discharge Assessment & Plan Assessment and Plan Assessment: Assessment: 1. Acute hypoxic respiratory failure secondary to COVID-19 pneumonia 2. Hx of multiple sclerosis (MS) 3. Hx of rheumatoid arthritis (RA) 4. Hx of depression 5. Hx of fibromyalgia 6. GERD Plan of Treatment: Plan: 1. Patient will complete 6 more days of said therapy for a total of 10 days. Patient will require supplemental oxygen at home, per RT ambulatory pulse oxygenation assessment. 2. Patient follows with outpatient neurologist. Takes gabapentin for neuropathy and baclofen for spasticity. 3. Patient reports taking rituximab as an outpatient, both for her RA and MS. 4. The patient denies being on home citalopram 20 mg daily any more. Will continue home duloxetine. 5. Will continue home duloxetine 60 mg daily. 6. Will continue home Protonix. Disposition: Home with supplemental oxygen and close PCP follow-up Discharge Plan Discharge Plan Patient Disposition: Home Discharge orders & Medications Prescriptions: New dexamethasone 1 mg tablet 6 mg PO DAILY 6 Days Qty: 36 0RF Continued cholecalciferol (vitamin D3) [Vitamin D3] 1,000 UNIT tablet 3,000 iu PO DAILY Qty: 0 0RF acetaminophen [Tylenol Extra Strength] 500 MG tablet 1,000 mg PO Q6HP Qty: 0 0RF MULTIVITAMIN (#MULTIPLE VITAMINS) 1 cap PO QDAY Qty: 0 0RF citalopram [Celexa] 20 MG tablet 20 mg PO QDAY Qty: 0 0RF cetirizine 10 MG tablet 10 mg PO QDAY Qty: 0 0RF Glucosamine Sulfate (#GLUCOSAMINE) capsule 3,000 mg PO DAILY Qty: 0 0RF gabapentin [Neurontin] 300 MG capsule 900 mg PO HS Qty: 0 0RF calcium citrate 200 MG tablet 2,000 mg PO BID Qty: 0 0RF magnesium oxide 400 MG capsule 400 mg PO QDAY Qty: 0 0RF pantoprazole 40 MG tablet,delayed release (DR/EC) 40 mg PO 0600 Qty: 60 0RF duloxetine [Cymbalta] 60 MG capsule,delayed release(DR/EC) 60 mg PO QDAY Qty: 0 0RF Discontinued amoxicillin-pot clavulanate [Augmentin] 875-125 mg tablet 1 tab PO BID Qty: 20 0RF Follow up/Referrals: Sujatha Curiel PA-C [Primary Care Provider] - Visit Report/Discharge Packet Instructions: Home Oxygen Therapy, DI for Oxygen Therapy -- Adult, How to Measure Oxygen Saturation via Pulse Oximetry, How to Perform Oxygen Therapy via Cannula, DI for COVID-19 (Suspected or Confirmed ) Discharge Data Primary Care Provider: Sujatha Curiel
--- NOTE | 2021-09-06 16:55 | PC.NURSE ---
Pt is dressed and ready for discharge home with Spouse. O2 use teaching has been performed by RT and a tank has been provided. Pt has already spoken with Dileep from [facility]. IV has been removed. Belongings. packed up. Went over d/c instructions with Pt - discussed d/c meds, time of last dose, reminded Pt to take it easy and pace herself and notify her PCP if her O2 needs increase. Reviewed stroke education. Reviewed COVID precautions, isolating at home until symptoms have gone away and gave a handout on managing COVID. Pt out via w/c by RN to POV with Spouse and all belongings.
== END 2021-09-06 16:58 | disposition home or self-care (01) | DRG 177 ==
LOC: ED 11:34 → AC 12:46
PROVIDERS: Admitting Provider Internal Medicine; Emergency Provider Emergency Medicine; PCP Physician Assistant Medical; Referring Provider Emergency Medicine; Visit Provider Internal Medicine
DX: U07.1 COVID-19 (principal); J12.82 Pneumonia due to coronavirus disease 2019; J96.01 Acute respiratory failure with hypoxia; G35 Multiple sclerosis; M06.9 Rheumatoid arthritis, unspecified; F32.A Depression, unspecified; K21.9 Gastro-esophageal reflux disease without esophagitis; Z87.891 Personal history of nicotine dependence
CPT/HCPCS: 36415; 71046; 80053; 82550; 82728; 82962; 83605; 83735; 83880; 84145; 84484; 85025; 85379; 86140; 87040; 87635; 93005; 94618; 94760; 96365; 96375; 99284; C9803; J1100; J1650

== ENCOUNTER 2022-01-11 11:21 | Emergency (ER) | payer OTHER, SELFPAY ==
[2021-09-02 12:59] VITALS: BMI 36.3
[2022-01-11 11:30] VITALS: BP 144/85; PULSE 88; RESP 18; TEMP 36.2; O2SAT 96; BMI 38.2
--- NOTE | 2022-01-11 11:31 | DI.RAD.S_ITS ---
PROCEDURE: XR WRIST RT MIN 3V INDICATIONS: injury TECHNIQUE: Four views of the wrist were acquired. COMPARISON: None. FINDINGS: Bones: No fractures or dislocations. There is very slight ulnar negative variation. No suspicious bony lesions. Scaphoid view: Intact scaphoid. Soft tissues: No suspicious soft tissue calcifications. There is a punctate calcification in the expected location of the triangular fibrocartilage. IMPRESSION: 1. No evidence of fracture. 2. Tiny calcification in the triangular fibrocartilage region. Dictated by: Vickie Bauer M.D. on 01/11/2022 at 11:48 Approved by: Vickie Bauer M.D. on 01/11/2022 at 11:49
--- NOTE | 2022-01-11 12:56 | ED_ITS ---
HPI - Extremity Injury (Upper) <Elizabeth Chacon, [facility] - Last Filed: 01/11/22 19:30> General Chief Complaint: Extremity Injury, Upper Stated Complaint: poss broken right wrist Time Seen by Provider: 01/11/22 12:06 Source: patient and family Mode of arrival: Ambulatory History of Present Illness HPI narrative: 51-year-old female with history of multiple sclerosis presents to the emergency department complaining of worsening right wrist pain for the last 5 days. Patient states that 5 days ago she had a burning sensation in in a middle of her right wrist, she was seen at urgent care 2 days ago for this pain and was diagnosed with tendinitis. She has been wearing a volar wrist splint with an Nikolai wrap and states that it has been too painful to wear. She denies any redness, states it is mildly swollen, denies any skin changes, denies any wounds. Patient states that she had COVID in August, with the last time she was on steroids was then. Patient states that she takes 3000 mg of gabapentin daily, she also takes hydrocodone/ibuprofen,and has Rituxan infusions. Patient states that she has had flares of joints in the past, she has a history of rheumatoid arthritis as well, but she has never had a flare this bad. She also endorses having osteoarthritis in some of her joints. Handedness: right Related Data Home Medications Medication Instructions Recorded Confirmed Glucosamine Sulfate (#GLUCOSAMINE) 3,000 mg PO DAILY #0 08/10/12 09/02/21 MULTIVITAMIN (#MULTIPLE VITAMINS) 1 cap PO QDAY #0 08/10/12 09/02/21 acetaminophen 500 mg tablet 1,000 mg PO Q6HP #0 08/10/12 09/02/21 (Tylenol Extra Strength) cetirizine 10 mg tablet 10 mg PO QDAY #0 08/10/12 09/02/21 cholecalciferol (vitamin D3) 25 3,000 iu PO DAILY #0 08/10/12 09/02/21 mcg (1,000 unit) tablet (Vitamin D3) citalopram 20 mg tablet (Celexa) 20 mg PO QDAY #0 08/10/12 09/02/21 gabapentin 300 mg capsule 900 mg PO HS #0 08/25/12 09/02/21 (Neurontin) calcium citrate 200 mg (950 mg) 2,000 mg PO BID #0 10/08/16 09/02/21 tablet magnesium oxide 400 mg PO QDAY #0 10/08/16 09/02/21 duloxetine 60 mg capsule,delayed 60 mg PO QDAY #0 06/20/17 09/02/21 release (Cymbalta) Previous Rx's Medication Instructions Recorded pantoprazole 40 mg tablet,delayed 40 mg PO 0600 #60 10/23/16 release lidocaine 5 % topical ointment 1 applic TOPICAL BID PRN #50 g 01/11/22 oxycodone 10 mg tablet 10 mg PO BID PRN #10 tab 01/11/22 prednisone 50 mg tablet 50 mg PO DAILY 5 Days #5 tab 01/11/22 Allergies Allergy/AdvReac Type Severity Reaction Status Date / Time adhesive Allergy Severe BLISTER, Verified 03/13/19 10:33 SKIN COMES OFF capsaicin [CAPSAICIN] Allergy Severe ANAPHYLAXIS Verified 03/13/19 10:33 shellfish derived Allergy Severe ANAPHYLAXIS Verified 03/13/19 10:33 [SHELLFISH DERIVED] latex [LATEX] Allergy Intermediate BLISTER, Verified 03/13/19 10:33 HIVES oxycodone [From PERCOCET] Allergy Intermediate HIVES Verified 03/13/19 10:33 acetaminophen [From PERCOCET] AdvReac Intermediate HIVES Verified 03/13/19 10:33 Review of Systems <AZUL Keenan - Last Filed: 01/11/22 19:30> Review of Systems Narrative: General: denies fever, chills, malaise, sweats, fatigue Head/Neck: denies headache, neck pain, dizziness Eyes: denies visual changes, eye pain Cardio: denies chest pain, palpitations, edema Respiratory: denies dyspnea, cough, orthopnea GI: denies abdominal pain, nausea, vomiting, or diarrhea : denies dysuria, hematuria, urinary retention, frequency or incontinence MSK: Endorses medial right wrist pain without wound denies any muscle weakness Skin: denies rash, itching, skin lesions or other Neuro: denies numbness, tingling, denies any new sensation changes other than her right wrist pain, or any new weakness/gait changes Patient History <AZUL Keenan - Last Filed: 01/11/22 19:30> Medical History Depression Fibromyalgia Multiple sclerosis Rheumatoid arthritis Surgical History H/O shoulder surgery Family History Family/Other Multiple sclerosis Father Cancer Social History household members: spouse Smoking Status: Former smoker Smoking Status: Former smoker alcohol intake frequency: 0-2 drinks per day Substance Use Type: does not use Exam <AZUL Keenan - Last Filed: 01/11/22 19:30> Narrative Exam Narrative: Independently reviewed vitals signs and nursing notes. General: cooperative, comfortable, in no acute distress, well developed and well groomed Head: atraumatic, symmetrical facial expressions Neck: supple, atraumatic, without lymphadenopathy. Eyes: pupils equal round and reactive, EOMI, conjunctiva normal Nose: nares patent, no rhinorrhea Mouth/Throat: uvula midline, moist mucus membranes Cardiovascular: regular rate and rhythm, no peripheral edema, warm extremities Respiratory: normal effort, able to speak in complete sentences, no audible wheezing, stridor, or rales. No retractions or tachypnea. MSK: moves all extremities, ambulatory w/steady gait, neurovascularly intact, no weakness, right wrist with tenderness to palpation over the medial volar aspect, no erythema, mild edema, no fluctuance, discoloration, crepitus, or rigidity, flexion and extension of her wrist is intact at least 50%, limitation due to pain, eversion inversion also intact, pulses palpable, 2+, cap refill less than 2 seconds to her fingers Skin: brisk capillary refill, no rash, no erythema Neuro: normal speech and cognition, A&O x3, normal tone Psych: mental status is grossly normal, congruent mood, normal affect, pleasant and cooperative Initial Vital Signs Initial Vital Signs: Vital Signs Temperature 97.1 F L 01/11/22 11:30 Pulse Rate 88 01/11/22 11:30 Respiratory Rate 18 01/11/22 11:30 Blood Pressure 144/85 H 01/11/22 11:30 Pulse Oximetry 96 01/11/22 11:30 Course <AZUL Keenan - Last Filed: 01/11/22 19:30> Orders Ordered: Discontinued Medications Ketorolac Tromethamine (Ketorolac 30 Mg/Ml Vial) 15 mg IM NOW ONE Stop: 01/11/22 12:37 Last Admin: 01/11/22 13:26 Dose: 15 mg Documented by: ZAID Lidocaine/Prilocaine (Lidocaine/Prilocaine 5 Gm) 5 gm TOP NOW ONE Stop: 01/11/22 12:37 Last Admin: 01/11/22 13:26 Dose: 5 gm Documented by: ZAID Oxycodone HCl (Oxycodone Ir 5 Mg Tablet) 5 mg PO NOW ONE Stop: 01/11/22 13:14 Last Admin: 01/11/22 13:25 Dose: 5 mg Documented by: ZAID Prednisone (Prednisone 20 Mg Tablet) 60 mg PO NOW ONE Stop: 01/11/22 12:37 Last Admin: 01/11/22 13:27 Dose: 60 mg Documented by: ZAID Vital Signs Vital signs: Vital Signs - 8 hr 01/11/22 11:30 01/11/22 13:37 Temperature 97.1 F L Pulse Rate 88 85 Respiratory Rate 18 18 Blood Pressure 144/85 H 140/75 Pulse Oximetry 96 98 MDM - Extremity Injury (Upper) <AZUL Keenan - Last Filed: 01/11/22 19:30> Imaging Data Extremity x-ray #1: Radiologist's Impression: PROCEDURE:? XR WRIST RT MIN 3V ? INDICATIONS: injury ? TECHNIQUE:? Four views of the wrist were acquired.? ? COMPARISON:? None. ? FINDINGS:? ? Bones:? No fractures or dislocations.? There is very slight ulnar negative variation.? No suspicious bony lesions.? ? Scaphoid view:? Intact scaphoid. ? Soft tissues:? No suspicious soft tissue calcifications.? There is a punctate calcification in the expected location of the triangular fibrocartilage.? ? IMPRESSION:? ? 1. No evidence of fracture. ? 2. Tiny calcification in the triangular fibrocartilage region.? ? ? Dictated by: Vickie Bauer M.D. on 01/11/2022 at 11:48 ? ? Approved by: Vickie Bauer M.D. on 01/11/2022 at 11:49 ? [facility] Narrative Medical decision making narrative: 51-year-old female with multiple sclerosis presents to the emergency department complaining of right wrist pain which has been worsening for the last week. Patient was diagnosed with tendinitis 2 days ago, she has been wearing a volar wrist splint with an Nikolai wrap and complained about it being too painful. She took hydrocodone ibuprofen this morning as well as her gabapentin. She denies any known trauma. Wrist x-ray shows no evidence of fracture, there is a tiny calcification in the triangular fibrocartilage region. Patient was given a velcro wrist splint and sling, she states this much more comfortable. Flexion and extension with eversion inversion both intact, no fluctuance, no crepitus, no erythema, no discoloration. No signs of infection. No open wounds. Very mild amount of swelling along the medial volar aspect, not suspicious for abscess. Patient was fitted in a sling hand above her heart. Patient was given strict return precautions. Differential diagnosis would tenosynovitis, tendinitis, cellulitis, neuropathy, and tendinopathy. Patient was given a course of prednisone, Toradol in the emergency department, Lidocaine cream, and oxycodone. Was given a referral to Orthopedics and encouraged to follow-up as soon as possible. Patient is appropriate and amenable to discharge home. Vital signs are stable on repeat examination is unremarkable. Patient has been informed of results. Patient has been given strict return to ER precautions for any new or worsening symptoms. Patient understands to follow up closely with outpatient providers as instructed. Patient understands plan and agrees to discharge home. All questions and concerns answered at this time. Discharge Plan Departure Patient Disposition: Home Clinical Impression: Right wrist tendinitis Instructions: Tenosynovitis, Tendinopathy, DI for Tendinitis Activity Restrictions/Additional Instructions: *You have been diagnosed with tendinitis of your right wrist without signs of tenosynovitis. I gave you information about both so that you know what kind of signs to look for in case the starts getting worse. Please wear this for splint as much as possible, take it out to ice it, keep it elevated in a sling or a scar if you can to reduce the pain, you may apply lidocaine cream topically and see if that helps with your pain. I noticed your allergic to adhesive so I did not think lidocaine patch would be good for you. Please continue taking your Protonix daily to protect her stomach while you are on steroids and taking anti-inflammatories. Please take food with those medications as well. Follow- up with Nkechi curiel for a physical therapy referral, advanced imaging, and or additional pain medication. Thank you for trusting us with your care, please return to the emergency department for any worsening of this pain, redness, swelling, inability to move it, or major reduction in range of motion. I hope this feels better soon. Follow-up with orthopedics on Friday, please ask them to evaluate this for any concerning signs of tenosynovitis. *What to do: *Please continue to take your regular medications as directed. [x ] New medication prescriptions sent to your pharmacy: [[facility] ] [ ] New medication written as a paper prescription [ ] No new medications given *Please follow up with your primary care provider in 2-3 days, call for an appointment. Let them know you were seen in the Emergency Department and that we asked that you be seen for follow-up. We will electronically transmit a record of today's note if your PCP is in our system *If you do not have a primary care provider please contact [phone] to establish care with one of the [facility] primary care providers. *Return to Emergency Department if you should have any new, worsening or concerning symptoms, such as [fever greater than 101F, chills, worsening pain, persistent vomiting or other bothersome symptoms] Prescriptions: New prednisone 50 mg tablet 50 mg PO DAILY 5 Days Qty: 5 0RF lidocaine 5 % ointment 1 applic topical BID PRN (Reason: pain) Qty: 50 0RF oxycodone 10 mg tablet 10 mg PO BID PRN (Reason: pain) Qty: 10 0RF No Action cholecalciferol (vitamin D3) [Vitamin D3] 1,000 UNIT tablet 3,000 iu PO DAILY Qty: 0 0RF acetaminophen [Tylenol Extra Strength] 500 MG tablet 1,000 mg PO Q6HP Qty: 0 0RF MULTIVITAMIN (#MULTIPLE VITAMINS) 1 cap PO QDAY Qty: 0 0RF citalopram [Celexa] 20 MG tablet 20 mg PO QDAY Qty: 0 0RF cetirizine 10 MG tablet 10 mg PO QDAY Qty: 0 0RF Glucosamine Sulfate (#GLUCOSAMINE) capsule 3,000 mg PO DAILY Qty: 0 0RF gabapentin [Neurontin] 300 MG capsule 900 mg PO HS Qty: 0 0RF calcium citrate 200 MG tablet 2,000 mg PO BID Qty: 0 0RF magnesium oxide 400 MG capsule 400 mg PO QDAY Qty: 0 0RF pantoprazole 40 MG tablet,delayed release (DR/EC) 40 mg PO 0600 Qty: 60 0RF duloxetine [Cymbalta] 60 MG capsule,delayed release(DR/EC) 60 mg PO QDAY Qty: 0 0RF Referrals: [facility] [Provider Group] - As soon as possible Sujatha Curiel PA-C [Primary Care Provider] -
[2022-01-11] MEDS: OXYCODONE IR 5 MG TABLET PO (13:25)
[2022-01-11] MEDS: LIDOCAINE/PRILOCAINE 5 GM TOP (13:26)
[2022-01-11] MEDS: KETOROLAC 30 MG/ML VIAL 15 MG IM (13:26)
[2022-01-11] MEDS: predniSONE 20 MG TABLET 60 MG PO (13:27)
[2022-01-11 13:37] VITALS: BP 140/75; PULSE 85; RESP 18; O2SAT 98
== END 2022-01-11 13:37 | disposition home or self-care (01) ==
PROVIDERS: Emergency Provider Nurse Practitioner Critical Care Medicine; PCP Physician Assistant Medical
DX: M77.8 Other enthesopathies, not elsewhere classified (principal)
CPT/HCPCS: 29260; 73110; 96372; 99283; J1885

== ENCOUNTER → 2022-04-19 16:00 | Outpatient (CLI) | payer OTHER, SELFPAY ==
[2021-09-02 12:59] VITALS: BMI 36.3
--- NOTE | 2022-04-19 | DI.MRI.S_ITS ---
PROCEDURE: MR HEAD/BRAIN WO CON INDICATIONS: Multiple sclerosis TECHNIQUE: Noncontrast sagittal and axial FLAIR, axial and coronal T2 fast spin echo, axial VIBE, axial gradient echo, axial diffusion and ADC through the brain. COMPARISON: [facility], , MR HEAD/BRAIN WO CON, 03/03/2020, 17:15. FINDINGS: Image quality: Excellent. CSF spaces: Ventricles are normal in size and shape. Basal cisterns are patent. No extra-axial fluid collections. Brain: No intracranial bleeds or mass effects. Mild degree of patchy high FLAIR signal within the periventricular, colo cell, and pericallosal white matter, which is unchanged in distribution. Jesus-white matter interface appears intact. No suspicious white matter lesions. No abnormal intracranial enhancement. Diffusion weighted images show no acute ischemic insults. Brainstem appears normal. Normal intravascular flow voids are present. Skull and face: Calvarial marrow signal is normal. Orbits appear normal. Sinuses: Sinuses and mastoids are clear. IMPRESSION: 1. No change in mild degree of white matter disease, in a configuration consistent with multiple sclerosis. Dictated by: Stefano Cortes M.D. on 04/19/2022 at 16:40 Approved by: Stefano Cortes M.D. on 04/19/2022 at 16:42
--- NOTE | 2022-04-19 | DI.MRI.S_ITS ---
PROCEDURE: MR CERVICAL SPINE WO CON INDICATIONS: Multiple sclerosis TECHNIQUE: Noncontrast sagittal T1 spin echo and T2 fast spin echo, sagittal STIR, foraminal oblique sagittal T2 fast spin echo, and axial gradient echo or T2 fast spin echo through the cervical spine. COMPARISON: [facility], MR, C-SPINE W&WO CONTRAST, 02/14/2017, 7:04. FINDINGS: Image quality: Excellent. Alignment and Curvature: Normal cervical spine vertebral body height and alignment. Bone Marrow: No suspicious focal marrow signal abnormality or enhancement. Spinal Cord: No convincing evidence of the cervical cord signal abnormality to suggest a demyelinating lesion. No abnormal intradural enhancement. Regional Soft Tissues: No paravertebral masses. Prevertebral soft tissues are normal in thickness. C2-C3: Mild bilateral neural foraminal narrowing due to facet and uncovertebral hypertrophy. No spinal canal stenosis. C3-C4: Moderate bilateral neural foraminal narrowing due to facet and uncovertebral hypertrophy, left greater than right. No spinal canal stenosis. C4-C5: No spinal canal stenosis. Mild bilateral neural foraminal narrowing due to facet and uncovertebral hypertrophy. C5-C6: Moderate bilateral neural foraminal narrowing due to facet and uncovertebral hypertrophy. Mild spinal canal stenosis due to posterior disc osteophyte complex, similar to the prior study. C6-C7: Severe left and moderate right neural foraminal stenosis due to facet and uncovertebral hypertrophy. Mild spinal canal narrowing due to posterior disc osteophyte complex. C7-T1: No spinal canal or neural foraminal stenosis. IMPRESSION: No convincing cervical cord signal abnormality to suggest a demyelinating lesion. No abnormal enhancement in the cervical cord. Multilevel multifactorial degenerative changes which have not significantly changed when compared with the prior study. Findings are again worst at C6-C7 where there is severe left neural foraminal stenosis. Dictated by: David Herrera M.D. on 04/20/2022 at 15:57 Approved by: David Herrera M.D. on 04/20/2022 at 16:01
== END ==
PROVIDERS: PCP Physician Assistant Medical; Referring Provider Nurse Practitioner; Visit Provider Nurse Practitioner
DX: G35 Multiple sclerosis (principal); M47.812 Spondylosis without myelopathy or radiculopathy, cervical region
CPT/HCPCS: 70551; 72141

== ENCOUNTER → 2022-07-07 11:16 | Outpatient (CLI) | payer OTHER, SELFPAY ==
[2021-09-02 12:59] VITALS: BMI 36.3
--- NOTE | 2022-07-07 11:21 | DI.RAD.S_ITS ---
PROCEDURE: XR CERVICAL SPINE 4V OR 5V INDICATIONS: Spinal stenosis, cervical region TECHNIQUE: 5 views of the cervical spine acquired. COMPARISON: None. FINDINGS: Bones: No fractures or dislocations to the T1 level. Oblique images demonstrate moderate bilateral foraminal stenosis at C6-7. Degenerative disc space narrowing lower lumbar spine Soft tissues: No prevertebral soft tissue swelling. IMPRESSION: Degenerative foraminal stenosis bilateral C6-7 Approved by: Malik Cisse M.D. on 07/07/2022 at 11:47
== END ==
PROVIDERS: PCP Physician Assistant Medical; Referring Provider Student in an Organized Health Care Education/Training Program; Visit Provider Student in an Organized Health Care Education/Training Program
DX: M48.02 Spinal stenosis, cervical region (principal)
CPT/HCPCS: 72050

== ENCOUNTER 2022-11-03 10:20 | Emergency (ER) | payer OTHER, SELFPAY ==
[2021-09-02 12:59] VITALS: BMI 36.3
[2022-11-03 11:03] VITALS: BP 184/104; PULSE 81; RESP 20; TEMP 37; O2SAT 98
--- NOTE | 2022-11-03 11:03 | ED.EYEPROB ---
HPI - Eye Problem General Chief complaint: Eye Problems Stated complaint: rt eye pain/(hit of face by black kerr vine) Time Seen by Provider: 11/03/22 10:25 History of Present Illness HPI Narrative: 51-year-old female former smoker without significant chronic medical history presents with a chief complaint of right eye irritation and pain after suffering an injury yesterday. She was working on her property when she was scratched in the eye by a black Kerr jose. She now has pain and watering of her eye. She states her tetanus is up-to-date, she does wear eyeglasses as prescribed by an senior java web developer in [place]. She does not wear contacts. She does have blurring of her vision and states it is painful to open. She is otherwise well and free of complaint Related Data Home Medications Medication Instructions Recorded Confirmed Glucosamine Sulfate (#GLUCOSAMINE) 3,000 mg PO DAILY ##0 08/10/12 09/02/21 MULTIVITAMIN (#MULTIPLE VITAMINS) 1 cap PO QDAY ##0 08/10/12 09/02/21 acetaminophen 500 mg tablet 1,000 mg PO Q6HP ##0 08/10/12 09/02/21 (Tylenol Extra Strength) cetirizine 10 mg tablet 10 mg PO QDAY ##0 08/10/12 09/02/21 cholecalciferol (vitamin D3) 25 3,000 iu PO DAILY ##0 08/10/12 09/02/21 mcg (1,000 unit) tablet (Vitamin D3) citalopram 20 mg tablet (Celexa) 20 mg PO QDAY ##0 08/10/12 09/02/21 gabapentin 300 mg capsule 900 mg PO HS ##0 08/25/12 09/02/21 (Neurontin) calcium citrate 200 mg (950 mg) 2,000 mg PO BID ##0 10/08/16 09/02/21 tablet magnesium oxide 400 mg PO QDAY ##0 10/08/16 09/02/21 duloxetine 60 mg capsule,delayed 60 mg PO QDAY ##0 06/20/17 09/02/21 release (Cymbalta) Previous Rx's Medication Instructions Recorded pantoprazole 40 mg tablet,delayed 40 mg PO 0600 ##60 10/23/16 release lidocaine 5 % topical ointment 1 applic topical BID PRN pain #50 01/11/22 grams oxycodone 10 mg tablet 10 mg PO BID PRN pain #10 tabs 01/11/22 Allergies Allergy/AdvReac Type Severity Reaction Status Date / Time adhesive Allergy Severe BLISTER, Verified 11/03/22 11:02 SKIN COMES OFF capsaicin [CAPSAICIN] Allergy Severe ANAPHYLAXIS Verified 11/03/22 11:02 shellfish derived Allergy Severe ANAPHYLAXIS Verified 11/03/22 11:02 [SHELLFISH DERIVED] latex [LATEX] Allergy Intermediate BLISTER, Verified 11/03/22 11:02 HIVES oxycodone [From PERCOCET] Allergy Intermediate HIVES Verified 11/03/22 11:02 acetaminophen [From PERCOCET] AdvReac Intermediate HIVES Verified 11/03/22 11:02 Review of Systems Review of Systems Narrative: GENERAL: Denies chills, fatigue, malaise, fever, sweats. HEENT: See HPI RESPIRATORY: Denies dyspnea, cough, wheezing, hemoptysis, sputum. CARDIOVASCULAR: Denies chest pain, palpitations, orthopnea, edema, GASTROINTESTINAL: Denies nausea, vomiting, abdominal pain, diarrhea, constipation, melena. : Denies dysuria, frequency, incontinence, hematuria, urinary retention. MUSCULOSKELETAL: denies weakness, joint pain, or bony pain SKIN: Denies rash, skin lesions, or other NEUROLOGIC: Denies weakness, headache, numbness, change in speech, confusion, seizures, incoordination. PSYCHIATRIC: No concerning psychosocial issues. 12 point review of systems is negative except for those stated above Patient History Medical History Depression Fibromyalgia Multiple sclerosis Rheumatoid arthritis Surgical History H/O shoulder surgery Family History Family/Other Multiple sclerosis Father Cancer Social History household members: spouse Smoking Status: Former smoker Smoking Status: Former smoker alcohol intake frequency: 0-2 drinks per day Substance Use Type: does not use Exam Narrative Exam Narrative: GEN: AOx3 and in mild distress EYES: Pupils are equal, round, and reactive to light and accommodation. Extraoccular muscles are intact bilaterally. There is some injection in her right eye and watering. Careful inspection with both Wood's lamp and slit-lamp demonstrate no evidence of retained foreign body, upper lid is everted. No evidence of globe rupture or perforation, negative Lu sign. Patient had near complete resolution of symptoms with use of proparacaine. There is evidence of corneal abrasion overlying the iris at about 4:00 a.m. as there is fluorescein uptake CHEST: Lungs are clear to auscultation bilaterally and free of wheezes, rales, or rhonchi. Heart rate is regular rhythm, there are no murmurs, clicks, rubs, or gallops. There is no chest wall tenderness. ABD: Abdomen is soft and nontender. There is no guarding or rebound. Bowel sounds are normal in all 4 quadrants. There is no mass or organomegaly. EXT: Full painless ROM of all extremities with no loss of sensation or strength. SKIN: Warm, pink, and dry. No erythema or rash Initial Vital Signs Initial Vital Signs: Vital Signs Temperature 98.6 F 11/03/22 11:03 Pulse Rate 81 11/03/22 11:03 Respiratory Rate 20 11/03/22 11:03 Blood Pressure 184/104 H 11/03/22 11:03 Pulse Oximetry 98 11/03/22 11:03 Oxygen Delivery Method 11/03/22 11:03 Course Orders Ordered: Discontinued Medications Fluorescein Sodium (Fluorescein 1 Mg Strip) 1 mg EYE-RIGHT NOW ONE Stop: 11/03/22 10:26 Last Admin: 11/03/22 11:09 Dose: 1 mg Documented By: KAYLEE Ofloxacin (Ofloxacin 0.3% Ophth 5 Ml) 1 drops EYE-RIGHT NOW ONE Stop: 11/03/22 11:04 Last Admin: 11/03/22 11:09 Dose: 1 drop Documented By: KAYLEE Proparacaine HCl (Proparacaine 0.5% Ophth Lyndsay) 1 drops EYE-RIGHT NOW ONE Stop: 11/03/22 10:26 Last Admin: 11/03/22 11:08 Dose: 1 drop Documented By: KAYLEE MDM - Eye Problem MDM Narrative Medical decision making narrative: CC: 51-year-old female with eye injury yesterday after scratching it a black Kerr jose Complicating co-morbidities: Multiple sclerosis Data collected from: Patient Medical records reviewed: Including prior notes in our EMR Differential considered, but not limited to: Corneal abrasion, perforation, foreign body versus other Exam documented above, pertinent findings include: No evidence of foreign body or perforation, significant improvement with proparacaine, corneal abrasion noted as evidenced by fluorescein uptake under UV light with slit lamp Treatments: Proparacaine, fluorescein, ofloxacin Re-evaluations: As noted above patient had significant improvement after instillation of proparacaine Discussion: Patient with eye injury after abrasion with black Jimmy jose yesterday, she did flush it immediately and thinks she likely got out a small piece of thorn yesterday. Her tetanus is up-to-date, she has significant if not complete resolution of symptoms after proparacaine. There is no evidence of perforation, retained foreign body, however abrasion is noted as evidenced by fluorescein uptake under slit lamp. Patient administered antibiotics. She has an senior java web developer in [place] and is encouraged to follow closely. For completeness sake, she is given contact information and instructions regarding how to follow-up with local ophthalmology should she have difficulty with her own doctor. She is sent home with 2 cc of diluted proparacaine. 1 cc of proparacaine 0.5% was diluted with 9 cc of sterile saline, she was sent home with 2 cc of this mixture and given instructions for its use for pain (1 drop every 45-60 minutes for no more than 48 hours) Disposition: see below, along with detailed discharge instructions that have been reviewed with patient as well as indications for ED re-evaluation and additional outpatient follow up Discharge Plan Departure Patient Disposition: Home Clinical Impression: Corneal abrasion, right Instructions: DI for Corneal Abrasion Activity Restrictions/Additional Instructions: *You have been diagnosed with [right eye corneal abrasion. As we discussed there is no evidence of a penetrating injury to your eye, just a superficial abrasion] *What to do: *Please continue to take your regular medications as directed. *Ofloxacin Drops: 1-2 drops in your right eye ever 4 hours for 2 days and then every 6 hours for 5 days. You may stop if your symptoms completely resolve *Proparacaine Drops: you may use this 1/10th concentration of diluted proparacaine (0.05%) for pain. 1 drop every 45-60 minutes for no more than 48 hours. *Please follow up with your eye doctor tomorrow. Please call the office, let them know you were seen in the emergency department and we would like you seen in follow-up *Return to Emergency Department if you should have any new, worsening or concerning symptoms, such as [fever greater than 101 F, shaking chills, worsening pain, persistent vomiting or other bothersome symptoms] Prescriptions: No Action cholecalciferol (vitamin D3) [Vitamin D3] 1,000 UNIT tablet 3,000 iu PO DAILY Qty: 0 acetaminophen [Tylenol Extra Strength] 500 MG tablet 1,000 mg PO Q6HP Qty: 0 MULTIVITAMIN (#MULTIPLE VITAMINS) 1 cap PO QDAY Qty: 0 citalopram [Celexa] 20 MG tablet 20 mg PO QDAY Qty: 0 cetirizine 10 MG tablet 10 mg PO QDAY Qty: 0 Glucosamine Sulfate (#GLUCOSAMINE) capsule 3,000 mg PO DAILY Qty: 0 gabapentin [Neurontin] 300 MG capsule 900 mg PO HS Qty: 0 calcium citrate 200 MG tablet 2,000 mg PO BID Qty: 0 magnesium oxide 400 MG capsule 400 mg PO QDAY Qty: 0 pantoprazole 40 MG tablet,delayed release (DR/EC) 40 mg PO 0600 Qty: 60 0RF duloxetine [Cymbalta] 60 MG capsule,delayed release(DR/EC) 60 mg PO QDAY Qty: 0 lidocaine 5 % ointment 1 applic topical BID PRN (Reason: pain) Qty: 50 0RF oxycodone 10 mg tablet 10 mg PO BID PRN (Reason: pain) Qty: 10 0RF Referrals: Sujatha Curiel PA-C [Primary Care Provider] - Vinay Laboy MD [Physician] - Stand Alone Forms: Patient Portal/API
[2022-11-03] MEDS: PROPARACAINE 0.5% OPHTH SOL 1 DROPS EYE-RIGHT (11:08)
[2022-11-03] MEDS: FLUORESCEIN 1 MG STRIP EYE-RIGHT (11:09)
[2022-11-03] MEDS: OFLOXACIN 0.3% OPHTH 5 ML 1 DROPS EYE-RIGHT (11:09)
[2022-11-03 11:29] VITALS: BP 165/90; PULSE 72; RESP 20; O2SAT 99
== END 2022-11-03 11:33 | disposition home or self-care (01) ==
PROVIDERS: Emergency Provider Emergency Medicine; PCP Physician Assistant Medical
DX: S05.01XA Injury of conjunctiva and corneal abrasion without foreign body, right eye, initial encounter (principal)
CPT/HCPCS: 99282

== ENCOUNTER → 2022-12-14 16:11 | Outpatient (CLI) | payer OTHER, SELFPAY ==
[2021-09-02 12:59] VITALS: BMI 36.3
--- NOTE | 2022-12-14 | DI.RAD.S_ITS ---
PROCEDURE: XR HIP W PEL IF DONE JEWEL MIN 4V INDICATIONS: Hip pain TECHNIQUE: AP pelvis with lateral view(s) of the bilateral hip(s). COMPARISON: None. FINDINGS: Bones: No fractures or dislocations. Pelvic ring appears intact. No suspicious bony lesions. Soft tissues: The visualized bowel gas pattern is normal. No suspicious soft tissue calcifications. Multiple phleboliths present in the pelvis IMPRESSION: Unremarkable bilateral hip radiographs Approved by: Malik Cisse M.D. on 12/14/2022 at 16:45
--- NOTE | 2022-12-14 | DI.RAD.S_ITS ---
PROCEDURE: XR LUMBAR SPINE 2-3V INDICATIONS: Rheumatoid+OA/Hip+Hack pain TECHNIQUE: 3 views of the lumbar spine were acquired. COMPARISON: [facility], , -SPINE 2-3 VIEWS, 02/10/2017, 11:07. FINDINGS: Bones: 5 [id number] vertebrae are present. There is normal bony alignment. No vertebral body compression fractures. No suspicious bony lesions. Disc space narrowing hypertrophic facet joints noted in the lower lumbar spine. Soft tissues: Overlying bowel gas pattern is normal. No suspicious soft tissue calcifications. IMPRESSION: Degenerative disc disease and arthropathy in the lower lumbar spine Approved by: Malik Cisse M.D. on 12/14/2022 at 16:48
== END ==
PROVIDERS: PCP Physician Assistant Medical; Referring Provider Internal Medicine Rheumatology; Visit Provider Internal Medicine Rheumatology
DX: M51.36 Other intervertebral disc degeneration, lumbar region (principal); M47.816 Spondylosis without myelopathy or radiculopathy, lumbar region; M54.50 Low back pain, unspecified; M25.559 Pain in unspecified hip; M06.9 Rheumatoid arthritis, unspecified
CPT/HCPCS: 72100; 73522

== ENCOUNTER → 2023-01-24 18:55 | Outpatient (CLI) | payer OTHER, SELFPAY ==
[2021-09-02 12:59] VITALS: BMI 36.3
--- NOTE | 2023-01-24 | DI.MRI.S_ITS ---
PROCEDURE: MR LUMBAR SPINE WO CON INDICATIONS: pain TECHNIQUE: Noncontrast sagittal T1 spin echo and T2 fast echo, sagittal STIR, and T2 fast spin echo through the lumbar spine. In cases with scoliosis, additional coronal T2 fast spin echo may be performed. COMPARISON: [facility], MR, L-SPINE WITHOUT CONTRAST, 03/04/2011, 19:41. [facility], MR, MR CERVICAL SPINE WO CON, 01/24/2023, 19:21. [facility], CR, XR LUMBAR SPINE 2-3V, 12/14/2022, 16:14. FINDINGS: Image quality: This examination is limited by involuntary motion artifact. Alignment and Curvature: There is normal bony alignment. Bone Marrow: Marrow is of normal overall signal. No acute vertebral body compression fractures. Spinal Cord: Conus medullaris terminates at the L1 level. Visualized cord demonstrates normal signal and size. Paraspinous Soft Tissues: No paravertebral masses. T12-L1: Normal appearance. L1-L2: Normal appearance. L2-L3: Normal appearance. L3-L4: The disc height is well-preserved. Loss of disc signal is seen at this level. Moderate disc bulge is seen, which is eccentric to the left. There is a left foraminal disc protrusion, as on series 5, image 20. Moderate facet joint hypertrophy is seen. Moderate bilateral neural foraminal narrowing can be seen, left worse than right. Minimal central canal narrowing is seen. These imaging findings have progressed compared to the prior study. L4-L5: The disc height is well-preserved. Loss of disc signal is seen at this level. Moderate disc bulge is seen, with a central disc protrusion. Prominent facet hypertrophy is seen. There is moderate to severe bilateral neural foraminal narrowing, left worse than right. There is a degree of compression seen upon the exiting nerve roots. At least moderate central canal narrowing is seen at this level. These imaging findings have progressed compared to the prior study. L5-S1: The disc height and disk signal are well-preserved. Mild generalized disc bulge is seen. Mild facet joint hypertrophy is seen. Minimal bilateral neural foraminal narrowing can be seen. No central canal narrowing is seen. These imaging findings have progressed compared to the prior study. IMPRESSION: Lumbar spine degenerative changes are seen, which are worst at the L4-L5 level. The degenerative changes are progressed compared to 2010. Dictated by: Wero Craft M.D. on 01/24/2023 at 20:46 Approved by: Wero Craft M.D. on 01/24/2023 at 20:48
--- NOTE | 2023-01-24 | DI.MRI.S_ITS ---
PROCEDURE: MR CERVICAL SPINE WO CON INDICATIONS: pain TECHNIQUE: Noncontrast sagittal T1 spin echo and T2 fast spin echo, sagittal STIR, foraminal oblique sagittal T2 fast spin echo, and axial gradient echo or T2 fast spin echo through the cervical spine. COMPARISON: [facility], MR, C-SPINE W&WO CONTRAST, 02/14/2017, 7:04. [facility], MR, MR CERVICAL SPINE WO CON, 04/19/2022, 16:39. FINDINGS: Image quality: This examination is limited by involuntary motion artifact. Alignment and Curvature: There is straightening of the normal cervical lordosis. No focal AP alignment abnormality is seen. Bone Marrow: Marrow demonstrates normal overall signal. Spinal Cord: Visualized spinal cord has normal size and signal. No cerebellar tonsillar herniation. Paraspinous Soft Tissues: No paravertebral masses. Prevertebral soft tissues are normal in thickness. C2-C3: The disc height is well-preserved. Loss of disc signal is seen at this level. Mild to moderate disc osteophyte complex is seen. Moderate facet joint hypertrophy is seen. There is at least moderate right-sided and moderate left-sided neural foraminal narrowing. No significant central canal narrowing is seen. The degree of right-sided neural foraminal narrowing appears progressed compared to the prior MRI. C3-C4: The disc height is well-preserved. Loss of disc signal is seen at this level. A mild degree of generalized disc osteophyte complex is seen. Prominent facet hypertrophy is seen. There is moderate to severe bilateral neural foraminal narrowing. No significant central canal narrowing is seen. When comparison is made with the prior images, these findings are similar. C4-C5: The disc height is well-preserved. Loss of disc signal is seen at this level. Mild to moderate disc osteophyte complex is seen. Moderate facet joint hypertrophy is seen. At least moderate neural foraminal narrowing can be seen on the left. Moderate right-sided neural foraminal narrowing is seen. Mild central canal narrowing is seen. When comparison is made with the prior images, these findings are similar. C5-C6: Mild loss of disc height is seen. Loss of disc signal is seen. Moderate disc osteophyte complex is seen, which is eccentric to the left. There is a central/left disc osteophyte protrusion, as on series 3, image 27. Mild facet joint hypertrophy is seen. Moderate to severe bilateral neural foraminal narrowing can be seen at this level. At least moderate central canal narrowing is seen. There is associated mass effect upon the ventral spinal cord. These imaging findings have progressed compared to the prior study. C6-C7: The disc height is well-preserved. Loss of disc signal is seen at this level. Moderate generalized disc osteophyte complex is seen. Uncovertebral joint hypertrophy is seen at this level. Mild facet joint hypertrophy is seen. There is moderate to severe bilateral neural foraminal narrowing seen, left worse than right. Moderate central canal narrowing is seen. When comparison is made with the prior images, these findings are similar. C7-T1: No significant abnormality is seen. IMPRESSION: Multiple levels of significant cervical spine degenerative change can be seen. There is progression of degenerative change at C2-C3 and C5-C6 compared to the prior images. Dictated by: Wero Craft M.D. on 01/24/2023 at 20:40 Approved by: Wero Craft M.D. on 01/24/2023 at 20:45
--- NOTE | 2023-01-24 | DI.RAD.S_ITS ---
PROCEDURE: XR LUMBAR SPINE 2-3V INDICATIONS: DDD. order for 2 or 3 view exam. TECHNIQUE: 3 views of the lumbar spine were acquired. COMPARISON: [facility], MR, MR LUMBAR SPINE WO CON, 01/24/2023, 19:45. [facility], CR, XR LUMBAR SPINE 2-3V, 12/14/2022, 16:14. FINDINGS: Bones: 5 [id number] vertebrae are present. Minimal levocurvature of the lumbar spine. No significant listhesis. No vertebral body compression fractures. No suspicious bony lesions. Mild endplate degenerative changes and facet arthropathy worse at L3-L4 and L4-L5. Soft tissues: Overlying bowel gas pattern is normal. No suspicious soft tissue calcifications. IMPRESSION: Mild degenerative changes of the lower lumbar spine without acute osseous abnormality. Dictated by: Desmond Ortiz D.O. on 01/25/2023 at 16:43 Approved by: Desmond Ortiz D.O. on 01/25/2023 at 16:46
--- NOTE | 2023-01-24 | DI.MRI.S_ITS ---
PROCEDURE: MR HIP LT WO CON INDICATIONS: Pain in left hip intervertebral disc degeneration TECHNIQUE: Noncontrast coronal T1 spin echo and STIR through the bony pelvis. Coronal and axial T2 fast spin echo with fat saturation, sagittal T1 spin echo, and oblique axial T2 fast spin echo with fat saturation through the hip. COMPARISON: [facility], CR, XR HIP W PEL IF DONE JEWEL 3TO4V, 12/14/2022, 16:14. FINDINGS: Image quality: Excellent. Bones and joints: Bone marrow of the pelvic ring and proximal femurs show normal signal throughout. No intraosseous lesions or fractures. No avascular necrosis of the femoral heads. Disc desiccation and facet hypertrophy are seen in the included lumbar spine. Tendons and ligaments: There is moderate tendinosis and low-grade partial tearing of the anterior gluteus medius and posterior gluteus minimus tendon fibers at their insertions onto the left greater trochanter. A small amount of overlying trochanteric bursal fluid is present. Distal right gluteus medius and minimus tendinosis is also seen on large [id number] coronal images. The proximal iliotibial band appears intact. The iliopsoas tendon appears intact, without adjacent bursal fluid collections. The origin of the hamstring tendon demonstrates mild tendinosis, which appear similar to the contralateral right side.. The direct and indirect heads of the rectus femoris muscle origin appear intact. Labrum and cartilage: No displaced labral tear is seen. Cartilage surface of the femoral head appears of normal thickness. There is normal morphology of the femoral head and the acetabulum. Soft tissues: Visualized muscles demonstrate normal bulk and internal signal. Quadratus femoris muscle demonstrates no internal edema to suggest ischiofemoral impingement. The proximal sciatic neurovascular bundle appears intact. The included portions of the pelvis demonstrate no acute abnormality. IMPRESSION: 1. Low-grade partial tearing of the left gluteus medius and minimus tendons at their distal insertions onto the left greater trochanter superimposed on moderate tendinosis. Small overlying trochanteric bursal effusion is present. 2. Mild proximal hamstring tendinosis. 3. Distal gluteus medius and minimus tendinosis and proximal hamstring tendinosis are also noted on the contralateral right side on large [id number] coronal images. 4. Degenerative changes are seen in the included lumbar spine. Approved by: Dante Villa M.D. on 01/27/2023 at 9:18
== END ==
PROVIDERS: PCP Physician Assistant Medical; Referring Provider Physician Assistant Medical; Visit Provider Physician Assistant Medical
DX: M47.816 Spondylosis without myelopathy or radiculopathy, lumbar region (principal); M50.30 Other cervical disc degeneration, unspecified cervical region; M47.812 Spondylosis without myelopathy or radiculopathy, cervical region; M51.36 Other intervertebral disc degeneration, lumbar region; S76.012A Strain of muscle, fascia and tendon of left hip, initial encounter; M25.552 Pain in left hip; M25.452 Effusion, left hip
CPT/HCPCS: 72100; 72110; 72141; 72148; 73721

== ENCOUNTER 2023-02-06 15:26 | Emergency (ER) | payer OTHER, SELFPAY ==
[2021-09-02 12:59] VITALS: BMI 36.3
[2023-02-06 15:51] VITALS: BP 164/89; PULSE 89; RESP 16; TEMP 36.9; O2SAT 99; BMI 40.0
[2023-02-06] MEDS: diphenhydrAMINE 25 MG TABLET 50 MG PO (16:23)
--- NOTE | 2023-02-06 17:07 | ED_ITS ---
HPI - Skin/Abscess/Foreign Bdy General Chief complaint: Skin/Abscess/Foreign Body Stated complaint: Rash, Upper body Time Seen by Provider: 02/06/23 16:45 Source: patient Mode of arrival: Ambulatory Limitations: no limitations History of Present Illness HPI narrative: This is a 52-year-old female presents emergency department due to a A 2 day history of a itchy rash to her upper torso, back, head, neck, face. Last took Benadryl last night. Patient states that she fell asleep face down on a couch couple of days ago and soon noticed a faint itchy rash affecting primarily her upper chest and face. She denies any new foods. Denies any difficulty breathing or swallowing. Denies any chest pain, diarrhea, abdominal pain, or any other signs or symptoms. She tried taking Benadryl 75 mg last night without significant relief this morning. No history of this in the past. Related Data Home Medications Medication Instructions Recorded Confirmed Glucosamine Sulfate (#GLUCOSAMINE) 3,000 mg PO DAILY ##0 08/10/12 09/02/21 MULTIVITAMIN (#MULTIPLE VITAMINS) 1 cap PO QDAY ##0 08/10/12 09/02/21 acetaminophen 500 mg tablet 1,000 mg PO Q6HP ##0 08/10/12 09/02/21 (Tylenol Extra Strength) cetirizine 10 mg tablet 10 mg PO QDAY ##0 08/10/12 09/02/21 cholecalciferol (vitamin D3) 25 3,000 iu PO DAILY ##0 08/10/12 09/02/21 mcg (1,000 unit) tablet (Vitamin D3) citalopram 20 mg tablet (Celexa) 20 mg PO QDAY ##0 08/10/12 09/02/21 gabapentin 300 mg capsule 900 mg PO HS ##0 08/25/12 09/02/21 (Neurontin) calcium citrate 200 mg (950 mg) 2,000 mg PO BID ##0 10/08/16 09/02/21 tablet magnesium oxide 400 mg PO QDAY ##0 10/08/16 09/02/21 duloxetine 60 mg capsule,delayed 60 mg PO QDAY ##0 06/20/17 09/02/21 release (Cymbalta) Previous Rx's Medication Instructions Recorded pantoprazole 40 mg tablet,delayed 40 mg PO 0600 ##60 01/04/17 release lidocaine 5 % topical ointment 1 applic topical BID PRN pain #50 01/11/22 grams oxycodone 10 mg tablet 10 mg PO BID PRN pain #10 tabs 01/11/22 diphenhydramine HCl 25 mg capsule 25 mg PO QID 7 days #28 caps 02/06/23 (Benadryl) prednisone 10 mg tablet 10 mg PO DIRECTED 7 days #21 02/06/23 tabs Allergies Allergy/AdvReac Type Severity Reaction Status Date / Time adhesive Allergy Severe BLISTER, Verified 11/03/22 11:02 SKIN COMES OFF capsaicin [CAPSAICIN] Allergy Severe ANAPHYLAXIS Verified 11/03/22 11:02 shellfish derived Allergy Severe ANAPHYLAXIS Verified 11/03/22 11:02 [SHELLFISH DERIVED] latex [LATEX] Allergy Intermediate BLISTER, Verified 11/03/22 11:02 HIVES oxycodone [From PERCOCET] Allergy Intermediate HIVES Verified 11/03/22 11:02 acetaminophen [From PERCOCET] AdvReac Intermediate HIVES Verified 11/03/22 11:02 Review of Systems Review of Systems Narrative: GENERAL: Denies chills, fatigue, malaise, fever, sweats. HEENT: Denies sinus pain, ear pain, sore throat, difficulty swallowing, dizziness. RESPIRATORY: Denies dyspnea, cough, wheezing, hemoptysis, sputum. CARDIOVASCULAR: Denies chest pain, palpitations, orthopnea, edema, GASTROINTESTINAL: Denies nausea, vomiting, abdominal pain, diarrhea, constipation, melena. : Denies dysuria, frequency, incontinence, hematuria, urinary retention. MUSCULOSKELETAL: denies weakness, joint pain, or bony pain SKIN: Reports a rash NEUROLOGIC: Denies weakness, headache, numbness, change in speech, confusion, seizures, incoordination. PSYCHIATRIC: No concerning psychosocial issues. 12 point review of systems is negative except for those stated above Patient History Medical History Depression Fibromyalgia Multiple sclerosis Rheumatoid arthritis Surgical History H/O shoulder surgery Family History Family/Other Multiple sclerosis Father Cancer Social History household members: spouse Smoking Status: Former smoker Smoking Status: Former smoker alcohol intake frequency: holidays/special occasions only Substance Use Type: does not use Exam Narrative Exam Narrative: GENERAL: Well-developed patient, in mild distress. HEAD: Atraumatic. Normocephalic. EYES: Pupils equal round and reactive. Extraocular motions intact. No scleral icterus. No injection or drainage. ENT: Nose without bleeding, purulent drainage. Throat without erythema, tonsillar hypertrophy or exudate. Airway patent. NECK: Trachea midline. Non tender GASTROINTESTINAL: Abdomen soft, non-tender, nondistended. EXTREMITIES: No edema or joint tenderness. BACK: Nontender without deformity or crepitance. No flank tenderness. NEURO: AOx3. SKIN: Blanching erythematous rash diffusely across the upper chest as well as faintly seen on the posterior neck and face. No open lesions. Cool to the touch. No pustules. Or vesicles. Initial Vital Signs Initial Vital Signs: Vital Signs Temperature 98.4 F 02/06/23 15:51 Pulse Rate 89 02/06/23 15:51 Respiratory Rate 16 02/06/23 15:51 Blood Pressure 164/89 H 02/06/23 15:51 Pulse Oximetry 99 02/06/23 15:51 Oxygen Delivery Method Room Air 02/06/23 15:51 Course Orders Ordered: Discontinued Medications Diphenhydramine HCl (Diphenhydramine 25 Mg Tablet) 50 mg PO NOW ONE Stop: 02/06/23 16:21 Last Admin: 02/06/23 16:23 Dose: 50 mg Documented By: REMIGIO Vital Signs Vital signs: Vital Signs - 8 hr 02/06/23 15:51 02/06/23 17:39 Temperature 98.4 F Pulse Rate 89 80 Respiratory Rate 16 16 Blood Pressure 164/89 H 163/86 H Pulse Oximetry 99 96 Oxygen Delivery Method Room Air Room Air MDM - Skin/Abscess/Foreign Bdy MDM Narrative Medical decision making narrative: MDM * differential diagnosis includes but not limited to measles mumps rubella, poison oak dermatitis, shingles, contact dermatitis * Prior records reviewed: Patient has not been here for similar complaints in the past. * My lab interpretation: None obtained * My imgaing interpretation: None obtained * Clinical Decision Rules/Scores evaluated: None * Independent discussions with: None ED Course: This is a 52-year-old female presents emergency department due to a rash affecting her upper torso as well as face. She states it is itchy. Blanchable. Suspect allergic in nature. No vesicles or pustules or any concerns for any kind of bacterial infection. Patient has restarted taking Benadryl last night and recommended a routine course over the next week. We will also prescribe a prednisone taper to take over the next week to help control her symptoms. She is not describing any difficulty breathing or any other signs of anaphylaxis. Does not appear like shingles or any kind of poison oak dermatitis. No fevers or other systemic symptoms. Fully vaccinated. Shared Decision Making: Discussed plan patient who is comfortable with the plan. Social Considerations: None Disposition: Discharged to home Discharge Plan Departure Patient Disposition: Home Clinical Impression: Rash Activity Restrictions/Additional Instructions: Thank you for coming to the [facility] Emergency Department today. As we discussed suspect your rash is allergic in nature. It is not to be any kind of viral cause or any kind of bacterial infection. Please take the Benadryl as prescribed. I sent your medications to the [facility] in [place]. I hope you feel better soon. Prescriptions: New diphenhydramine HCl [Benadryl] 25 mg capsule 25 mg PO QID 7 Days Qty: 28 0RF prednisone 10 mg tablet 10 mg PO DIRECTED 7 Days Qty: 21 0RF Rx Instructions: Please take 6 tablets the 1st day, 5 tablets on the 2nd day, 4 tablets 3rd day, 3 tablets on 5th day, 2 tablets 6th day, and 1 tablet on final day. No Action cholecalciferol (vitamin D3) [Vitamin D3] 1,000 UNIT tablet 3,000 iu PO DAILY Qty: 0 acetaminophen [Tylenol Extra Strength] 500 MG tablet 1,000 mg PO Q6HP Qty: 0 MULTIVITAMIN (#MULTIPLE VITAMINS) 1 cap PO QDAY Qty: 0 citalopram [Celexa] 20 MG tablet 20 mg PO QDAY Qty: 0 cetirizine 10 MG tablet 10 mg PO QDAY Qty: 0 Glucosamine Sulfate (#GLUCOSAMINE) capsule 3,000 mg PO DAILY Qty: 0 gabapentin [Neurontin] 300 MG capsule 900 mg PO HS Qty: 0 calcium citrate 200 MG tablet 2,000 mg PO BID Qty: 0 magnesium oxide 400 MG capsule 400 mg PO QDAY Qty: 0 pantoprazole 40 MG tablet,delayed release (DR/EC) 40 mg PO 0600 Qty: 60 0RF duloxetine [Cymbalta] 60 MG capsule,delayed release(DR/EC) 60 mg PO QDAY Qty: 0 lidocaine 5 % ointment 1 applic topical BID PRN (Reason: pain) Qty: 50 0RF oxycodone 10 mg tablet 10 mg PO BID PRN (Reason: pain) Qty: 10 0RF Referrals: Sujatha Curiel PA-C [Primary Care Provider] - Stand Alone Forms: Patient Portal/API
[2023-02-06 17:39] VITALS: BP 163/86; PULSE 80; RESP 16; O2SAT 96
== END 2023-02-06 17:41 | disposition home or self-care (01) ==
PROVIDERS: Emergency Provider Physician Assistant Medical; PCP Physician Assistant Medical
DX: R21 Rash and other nonspecific skin eruption (principal)
CPT/HCPCS: 99283

== ENCOUNTER 2023-04-08 11:29 | Emergency (ER) | payer OTHER, SELFPAY ==
[2021-09-02 12:59] VITALS: BMI 36.3
[2023-04-08 11:34] VITALS: BP 142/76; PULSE 97; RESP 18; TEMP 36.6; O2SAT 98; BMI 38.0
--- NOTE | 2023-04-08 11:53 | ED.BACK ---
HPI - Back Pain/Injury <Maged Green PA-C - Last Filed: 04/08/23 13:17> General Chief Complaint: Back Pain/Injury Stated Complaint: L-4/5/6 are messed up/can't sit/bend Time Seen by Provider: 04/08/23 11:48 Source: patient History of Present Illness HPI Narrative: 52-year-old female with past medical history multiple sclerosis, disc issues of the lower back, fibromyalgia, depression, hypothyroidism presents to the ED with 2 days of acutely worsened lower back pain. Patient states that she receives epidural injections from Dr. Bunch at [facility], her last injection was a days ago. Patient states that her back was beginning to feel better, however she started experiencing worsening lower back pain after her physical therapy session yesterday. Patient states that it is extremely painful to move, the pain is localized to the lower back. Patient denies any new numbness, tingling, weakness. Patient denies urinary hesitancy, urinary incontinence, bowel incontinence, saddle paresthesias, fever, chills. Patient took some Vicodin and ibuprofen this morning with minimal relief. Related Data Home Medications Medication Instructions Recorded Confirmed Glucosamine Sulfate (#GLUCOSAMINE) 3,000 mg PO DAILY ##0 08/10/12 09/02/21 MULTIVITAMIN (#MULTIPLE VITAMINS) 1 cap PO QDAY ##0 08/10/12 09/02/21 acetaminophen 500 mg tablet 1,000 mg PO Q6HP ##0 08/10/12 09/02/21 (Tylenol Extra Strength) cetirizine 10 mg tablet 10 mg PO QDAY ##0 08/10/12 09/02/21 cholecalciferol (vitamin D3) 25 3,000 iu PO DAILY ##0 08/10/12 09/02/21 mcg (1,000 unit) tablet (Vitamin D3) citalopram 20 mg tablet (Celexa) 20 mg PO QDAY ##0 08/10/12 09/02/21 gabapentin 300 mg capsule 900 mg PO HS ##0 08/25/12 09/02/21 (Neurontin) calcium citrate 200 mg (950 mg) 2,000 mg PO BID ##0 10/08/16 09/02/21 tablet magnesium oxide 400 mg PO QDAY ##0 10/08/16 09/02/21 duloxetine 60 mg capsule,delayed 60 mg PO QDAY ##0 06/20/17 09/02/21 release (Cymbalta) Previous Rx's Medication Instructions Recorded pantoprazole 40 mg tablet,delayed 40 mg PO 0600 ##60 10/23/16 release lidocaine 5 % topical ointment 1 applic topical BID PRN pain #50 01/11/22 grams oxycodone 10 mg tablet 10 mg PO BID PRN pain #10 tabs 01/11/22 cyclobenzaprine 10 mg tablet 10 mg PO TID PRN muscle spasm #30 04/08/23 tabs Allergies Allergy/AdvReac Type Severity Reaction Status Date / Time adhesive Allergy Severe BLISTER, Verified 04/08/23 11:34 SKIN COMES OFF capsaicin [CAPSAICIN] Allergy Severe ANAPHYLAXIS Verified 04/08/23 11:34 shellfish derived Allergy Severe ANAPHYLAXIS Verified 04/08/23 11:34 [SHELLFISH DERIVED] latex [LATEX] Allergy Intermediate BLISTER, Verified 04/08/23 11:34 HIVES oxycodone [From PERCOCET] Allergy Intermediate HIVES Verified 04/08/23 11:34 acetaminophen [From PERCOCET] AdvReac Intermediate HIVES Verified 04/08/23 11:34 Review of Systems <Maged Green PA-C - Last Filed: 04/08/23 13:17> Review of Systems ROS Unobtainable: All systems reviewed & are unremarkable except as noted in HPI and below Constitutional Constitutional: Denies chills, Denies fatigue, Denies fever(s), Denies frequent falls, Denies lethargy and Denies weakness Eyes Eyes: Denies change in vision, Denies eye discharge, Denies irritation and Denies loss of vision ENT Ears, Nose, Mouth, and Throat: Denies change in voice, Denies dizziness, Denies neck pain, Denies sore throat and Denies throat swelling Cardiovascular Cardiovascular: Denies chest pain, Denies irregular heart rhythm, Denies lightheadedness, Denies palpitations, Denies dyspnea, Denies dyspnea on exertion and Denies orthopnea Respiratory Respiratory: Denies cough, Denies dyspnea, Denies dyspnea on exertion and Denies wheezing Gastrointestinal Gastrointestinal: Denies abdominal pain, Denies change in bowel habits, Denies diarrhea, Denies nausea and Denies vomiting Genitourinary Genitourinary: Denies hematuria, Denies flank pain, Denies urinary incontinence and Denies urinary urgency Musculoskeletal Musculoskeletal: Reports back pain, Denies muscle weakness, Denies neck pain, Denies numbness and Denies tingling Integumentary/Breasts Skin/Breast: Denies pruritus, Denies erythema, Denies rash and Denies wounds Neurologic Neurologic: Denies behavioral changes, Denies confusion, Denies dizziness, Denies frequent falls, Denies loss of vision, Denies numbness, Denies tingling and Denies weakness Psychiatric Psychiatric: Denies anxiety, Denies behavioral changes, Denies confusion, Denies depression, Denies homicidal ideation and Denies suicidal ideation Endocrine Endocrine: Denies fatigue, Denies flushing and Denies palpitations Hematologic/Lymphatic Hematologic/Lymphatic: Denies easy bruising Allergic/Immunologic Allergic/Immunologic: Denies urticaria, Denies throat swelling and Denies wheezing Patient History <Maged Green PA-C - Last Filed: 04/08/23 13:17> Medical History Depression Fibromyalgia Multiple sclerosis Rheumatoid arthritis Surgical History H/O shoulder surgery Family History Family/Other Multiple sclerosis Father Cancer Social History household members: spouse Smoking Status: Former smoker Smoking Status: Former smoker alcohol intake frequency: holidays/special occasions only Substance Use Type: does not use Exam <Maged Green PA-C - Last Filed: 04/08/23 13:17> Narrative Exam Narrative: Const General:?cooperative, healthy appearing and comfortable [facility] Head:?normal to inspection Ears:?hearing grossly normal bilaterally Nose:?external nose normal Face and sinus:?normal facial exam and sinuses nontender Mouth:?oral mucosae normal Throat:?posterior oropharynx normal Eyes General:?appearance normal, both eyes and all related structures Neck Neck:?normal visual inspection and no lymphadenopathy noted Resp Effort & Inspection:?normal respiratory effort Auscultation:?clear to auscultation bilaterally Cardio Rate:?regular rate Rhythm:?regular rhythm Musculoskeletal No midline tenderness to palpation. No paraspinal tenderness to palpation. There is full range of motion. Range of motion is however limited by pain. Strength and sensation is intact. Patient is neurovascularly intact. Neuro General:?patient alert, patient awake and patient oriented x3 Initial Vital Signs Initial Vital Signs: Vital Signs Temperature 97.8 F 04/08/23 11:34 Pulse Rate 97 H 04/08/23 11:34 Respiratory Rate 18 04/08/23 11:34 Blood Pressure 142/76 H 04/08/23 11:34 Pulse Oximetry 98 04/08/23 11:34 Oxygen Delivery Method Room Air 04/08/23 11:34 <Michael Cortez MD - Last Filed: 04/23/23 20:01> Initial Vital Signs Initial Vital Signs: Vital Signs Temperature 97.8 F 04/08/23 11:34 Pulse Rate 97 H 04/08/23 11:34 Respiratory Rate 18 04/08/23 11:34 Blood Pressure 142/76 H 04/08/23 11:34 Pulse Oximetry 98 04/08/23 11:34 Oxygen Delivery Method Room Air 04/08/23 11:34 Course <Maged Green PA-C - Last Filed: 04/08/23 13:17> Orders Ordered: Discontinued Medications Cyclobenzaprine HCl (Cyclobenzaprine 10 Mg Tablet) 10 mg PO NOW ONE Stop: 04/08/23 12:02 Last Admin: 04/08/23 12:15 Dose: 10 mg Documented By: GERTRUDE Ketorolac Tromethamine (Ketorolac 30 Mg/Ml Vial) 30 mg IM NOW ONE Stop: 04/08/23 12:02 Last Admin: 04/08/23 12:15 Dose: 30 mg Documented By: GERTRUDE Vital Signs Vital signs: Vital Signs - 8 hr 04/08/23 11:34 Temperature 97.8 F Pulse Rate 97 H Respiratory Rate 18 Blood Pressure 142/76 H Pulse Oximetry 98 Oxygen Delivery Method Room Air <Michael Cortez MD - Last Filed: 04/23/23 20:01> Orders Ordered: Discontinued Medications Cyclobenzaprine HCl (Cyclobenzaprine 10 Mg Tablet) 10 mg PO NOW ONE Stop: 04/08/23 12:02 Last Admin: 04/08/23 12:15 Dose: 10 mg Documented By: AMJob Ketorolac Tromethamine (Ketorolac 30 Mg/Ml Vial) 30 mg IM NOW ONE Stop: 04/08/23 12:02 Last Admin: 04/08/23 12:15 Dose: 30 mg Documented By: AMU Vital Signs Vital signs: Vital Signs - 8 hr 04/08/23 11:34 Temperature 97.8 F Pulse Rate 97 H Respiratory Rate 18 Blood Pressure 142/76 H Pulse Oximetry 98 Oxygen Delivery Method Room Air MDM - Back Pain/Injury <Maged Green PA-C - Last Filed: 04/08/23 13:17> MDM Narrative Medical decision making narrative: 52-year-old female with past medical history multiple sclerosis, disc issues of the lower back, fibromyalgia, depression, hypothyroidism presents to the ED with 2 days of acutely worsened lower back pain. Patient's MRI from 01/24/2023 shows lumbar spine degenerative changes worst at the L4-L5 level. History and physical exam most consistent with an acute exacerbation of the lower back pain. No red flags indicating a spinal emergency. Will treat pain with ketorolac and Flexeril. Will prescribe Flexeril. Patient agrees to follow-up with Dr. Bunch today for further evaluation. ED return precautions were discussed with patient. Patient verbalized understanding. Medical records reviewed: Yes Discharge Plan Departure Patient Disposition: Home Clinical Impression: Lower back pain Instructions: DI for Low Back Pain Activity Restrictions/Additional Instructions: You were evaluated in the ED today for an exacerbation of your lower back pain. Your history and physical exam is reassuring in that there were no spinal emergencies identified today. Your symptoms improved with ketorolac and Flexeril. You are being prescribed Flexeril for continued use at home as needed. You may also take 800 mg of ibuprofen 3 times a day with food for symptom relief. Please follow-up with Dr. Bunch as soon as possible for further evaluation. Return to the ED if you have worsening symptoms, urinary difficulties. Prescriptions: New cyclobenzaprine 10 mg tablet 10 mg PO TID PRN (Reason: muscle spasm) Qty: 30 0RF No Action cholecalciferol (vitamin D3) [Vitamin D3] 1,000 UNIT tablet 3,000 iu PO DAILY Qty: 0 acetaminophen [Tylenol Extra Strength] 500 MG tablet 1,000 mg PO Q6HP Qty: 0 MULTIVITAMIN (#MULTIPLE VITAMINS) 1 cap PO QDAY Qty: 0 citalopram [Celexa] 20 MG tablet 20 mg PO QDAY Qty: 0 cetirizine 10 MG tablet 10 mg PO QDAY Qty: 0 Glucosamine Sulfate (#GLUCOSAMINE) capsule 3,000 mg PO DAILY Qty: 0 gabapentin [Neurontin] 300 MG capsule 900 mg PO HS Qty: 0 calcium citrate 200 MG tablet 2,000 mg PO BID Qty: 0 magnesium oxide 400 MG capsule 400 mg PO QDAY Qty: 0 pantoprazole 40 MG tablet,delayed release (DR/EC) 40 mg PO 0600 Qty: 60 0RF duloxetine [Cymbalta] 60 MG capsule,delayed release(DR/EC) 60 mg PO QDAY Qty: 0 lidocaine 5 % ointment 1 applic topical BID PRN (Reason: pain) Qty: 50 0RF oxycodone 10 mg tablet 10 mg PO BID PRN (Reason: pain) Qty: 10 0RF Referrals: Sujatha Curiel PA-C [Primary Care Provider] - Stand Alone Forms: Patient Portal/API <Michael Cortez MD - Last Filed: 04/23/23 20:01> [facility]: I was immediately available in the department for consultation. This documentation has been reviewed and I agree with assessment and plan. Supervised by Michael Cortez MD
[2023-04-08] MEDS: CYCLOBENZAPRINE 10 MG TABLET PO (12:15)
[2023-04-08] MEDS: KETOROLAC 30 MG/ML VIAL IM (12:15)
== END 2023-04-08 13:33 | disposition home or self-care (01) ==
PROVIDERS: Emergency Provider Student in an Organized Health Care Education/Training Program; PCP Physician Assistant Medical
DX: M54.50 Low back pain, unspecified (principal)
CPT/HCPCS: 96372; 99283; J1885

== ENCOUNTER 2023-05-10 08:51 | Emergency (ER) | payer OTHER, SELFPAY ==
[2021-09-02 12:59] VITALS: BMI 36.3
[2023-05-10] VITALS (10 sets, daily range): BP systolic 130–174; BP diastolic 63–94; PULSE 83–98; RESP 20; TEMP 36.6; O2SAT 95–99; BMI 39.0
--- NOTE | 2023-05-10 09:47 | ED.BACK ---
HPI - Back Pain/Injury General Chief Complaint: Back Pain/Injury Stated Complaint: Lower back pain Time Seen by Provider: 05/10/23 09:06 Source: patient History of Present Illness HPI Narrative: Patient 52-year-old female history of multiple sclerosis, chronic back pain with degenerative changes worse at L4-L5. She reports that she finished a long prednisone taper of 2 months this last week. She now is having sharp shooting excruciating pain mostly down her left leg that started yesterday. She denies any bowel or bladder changes no leg weakness. She also received an injection 4 weeks ago. She is not had any fever or chills. Pain comes and goes. She took oxycodone last night which allowed her to get some sleep but does not really help with her pain. She is appointment with orthopedic surgery. She would an MRI 01/24/2023 which showed moderate disc bulge with central disc protrusion. She reports that she did very well on prednisone. She reports she is Flexeril oxycodone at home not really sure that is working Related Data Home Medications Medication Instructions Recorded Confirmed Glucosamine Sulfate (#GLUCOSAMINE) 3,000 mg PO DAILY ##0 08/10/12 09/02/21 MULTIVITAMIN (#MULTIPLE VITAMINS) 1 cap PO QDAY ##0 08/10/12 09/02/21 acetaminophen 500 mg tablet 1,000 mg PO Q6HP ##0 08/10/12 09/02/21 (Tylenol Extra Strength) cetirizine 10 mg tablet 10 mg PO QDAY ##0 08/10/12 09/02/21 cholecalciferol (vitamin D3) 25 3,000 iu PO DAILY ##0 08/10/12 09/02/21 mcg (1,000 unit) tablet (Vitamin D3) citalopram 20 mg tablet (Celexa) 20 mg PO QDAY ##0 08/10/12 09/02/21 gabapentin 300 mg capsule 900 mg PO HS ##0 08/25/12 09/02/21 (Neurontin) calcium citrate 200 mg (950 mg) 2,000 mg PO BID ##0 10/08/16 09/02/21 tablet magnesium oxide 400 mg PO QDAY ##0 10/08/16 09/02/21 duloxetine 60 mg capsule,delayed 60 mg PO QDAY ##0 06/20/17 09/02/21 release (Cymbalta) Previous Rx's Medication Instructions Recorded pantoprazole 40 mg tablet,delayed 40 mg PO 0600 ##60 10/23/16 release lidocaine 5 % topical ointment 1 applic topical BID PRN pain #50 01/11/22 grams oxycodone 10 mg tablet 10 mg PO BID PRN pain #10 tabs 01/11/22 cyclobenzaprine 10 mg tablet 10 mg PO TID PRN muscle spasm #30 04/08/23 tabs diazepam 5 mg tablet (Valium) 5 mg PO Q12HR PRN muscle spasm #10 05/10/23 tabs prednisone 10 mg tablet 10 mg PO DAILY #30 tabs 05/10/23 Allergies Allergy/AdvReac Type Severity Reaction Status Date / Time adhesive Allergy Severe BLISTER, Verified 04/08/23 11:34 SKIN COMES OFF capsaicin [CAPSAICIN] Allergy Severe ANAPHYLAXIS Verified 04/08/23 11:34 shellfish derived Allergy Severe ANAPHYLAXIS Verified 04/08/23 11:34 [SHELLFISH DERIVED] latex [LATEX] Allergy Intermediate BLISTER, Verified 04/08/23 11:34 HIVES oxycodone [From PERCOCET] Allergy Intermediate HIVES Verified 04/08/23 11:34 acetaminophen [From PERCOCET] AdvReac Intermediate HIVES Verified 04/08/23 11:34 Review of Systems Review of Systems ROS Unobtainable: All systems reviewed & are unremarkable except as noted in HPI and below Patient History Medical History Depression Fibromyalgia Multiple sclerosis Rheumatoid arthritis Surgical History H/O shoulder surgery Family History Family/Other Multiple sclerosis Father Cancer Social History household members: spouse Smoking Status: Former smoker Smoking Status: Former smoker alcohol intake frequency: holidays/special occasions only Substance Use Type: does not use Exam Initial Vital Signs Initial Vital Signs: Vital Signs Temperature 97.9 F 05/10/23 09:03 Pulse Rate 98 H 05/10/23 09:03 Respiratory Rate 20 05/10/23 09:03 Blood Pressure 174/94 H 05/10/23 09:03 Pulse Oximetry 97 05/10/23 09:03 Oxygen Delivery Method Room Air 05/10/23 09:03 GENERAL: Alert pleasant 51-year-old female appears uncomfortable and in no acute distress. HEENT: Head atraumatic,EOMI, pupils reactive, face symmetric, moist mucous membranes CARDIOVASCULAR: Regular rate and rhythm without murmurs, rubs or gallops. RESPIRATORY: Breath sounds equal bilaterally, no wheezes rales or rhonchi. ABDOMEN: Soft, nontender. Normoactive bowel sounds all 4 quadrants. No guarding or rebound. BACK: Mid tenderness L3-4 5 region EXTREMITIES: Normal range of motion, no clubbing or edema. Neurovascularly intact NEUROLOGICAL: Alert and oriented x4.Normal gait and speech. Sensation in lower extremities intact medial thigh sensation equal bilaterally and intact SKIN: Warm, dry, no laceration, no petechiae, no rashes or lesions. Course Orders Ordered: Discontinued Medications Hydromorphone HCl (Hydromorphone 1 Mg Inj) 1 mg IM NOW ONE Stop: 05/10/23 09:57 Last Admin: 05/10/23 10:24 Dose: 1 mg Documented By: DYLON Prednisone (Prednisone 20 Mg Tablet) 60 mg PO NOW ONE Stop: 05/10/23 09:57 Last Admin: 05/10/23 10:23 Dose: 60 mg Documented By: DYLON Vital Signs Vital signs: Vital Signs - 8 hr 05/10/23 09:03 05/10/23 09:03 05/10/23 09:14 Temperature 97.9 F Pulse Rate 98 H 94 H Respiratory Rate 20 Blood Pressure 174/94 H 144/78 H Pulse Oximetry 97 99 Oxygen Delivery Method Room Air 05/10/23 09:14 05/10/23 09:15 05/10/23 09:15 Temperature Pulse Rate 91 H 89 Respiratory Rate Blood Pressure 130/68 Pulse Oximetry 97 98 Oxygen Delivery Method 05/10/23 09:30 05/10/23 09:30 05/10/23 09:45 Temperature Pulse Rate 88 Respiratory Rate Blood Pressure 137/73 137/72 Pulse Oximetry 96 Oxygen Delivery Method 05/10/23 09:45 05/10/23 10:00 05/10/23 10:00 Temperature Pulse Rate 87 85 Respiratory Rate Blood Pressure 138/65 Pulse Oximetry 95 95 Oxygen Delivery Method 05/10/23 10:15 05/10/23 10:15 05/10/23 10:30 Temperature Pulse Rate 88 Respiratory Rate Blood Pressure 130/63 140/70 Pulse Oximetry 95 Oxygen Delivery Method 05/10/23 10:30 05/10/23 10:45 05/10/23 10:45 Temperature Pulse Rate 83 83 Respiratory Rate Blood Pressure 160/81 H Pulse Oximetry 97 96 Oxygen Delivery Method 05/10/23 11:00 05/10/23 11:00 Temperature Pulse Rate 95 H Respiratory Rate Blood Pressure 149/81 H Pulse Oximetry 98 Oxygen Delivery Method MDM - Back Pain/Injury MDM Narrative Medical decision making narrative: Patient 52-year-old female history of chronic ongoing back pain. She just a bit off 2 months of prednisone is now having sharp shooting pain. She is feeling significantly better after low Dilaudid and prednisone. No sign of cauda equina. She has no weakness. At this time I think reasonable to restart her on prednisone. Have reviewed her lumbar spine from January I see no need for repeat imaging today. She is followed by PCP and Orthopedics. Discharge Plan Departure Patient Disposition: Home Clinical Impression: Acute exacerbation of chronic low back pain Instructions: DI for Back Pain With Sciatica Activity Restrictions/Additional Instructions: *You have been diagnosed with back pain *What to do: At this time let us try steroids to see if that helps. *Continue to take medications as directed Prednisone 40 mg for 3 days, 30 mg for 3 days, 20 mg for 3 days, 10 mg for 3 days Valium 5 mg every 12 hours if needed for muscle spasm Tylenol 1000 mg every 6 hours if needed for [id number] pain *Follow up with your primary care provider in 2-3 days or call [phone] *Return to ER if you should have increasing leg weakness loss of urine or stool or any new, worsening or concerning symptoms Prescriptions: New prednisone 10 mg tablet 10 mg PO DAILY Qty: 30 0RF Rx Instructions: day 1-3: 40 mg once a day day 4-6: 30 mg once a day day 7-9: 20 mg once a day day 10-12: 10 mg once a day diazepam [Valium] 5 mg tablet 5 mg PO Q12HR PRN (Reason: muscle spasm) Qty: 10 0RF No Action cholecalciferol (vitamin D3) [Vitamin D3] 1,000 UNIT tablet 3,000 iu PO DAILY Qty: 0 acetaminophen [Tylenol Extra Strength] 500 MG tablet 1,000 mg PO Q6HP Qty: 0 MULTIVITAMIN (#MULTIPLE VITAMINS) 1 cap PO QDAY Qty: 0 citalopram [Celexa] 20 MG tablet 20 mg PO QDAY Qty: 0 cetirizine 10 MG tablet 10 mg PO QDAY Qty: 0 Glucosamine Sulfate (#GLUCOSAMINE) capsule 3,000 mg PO DAILY Qty: 0 gabapentin [Neurontin] 300 MG capsule 900 mg PO HS Qty: 0 calcium citrate 200 MG tablet 2,000 mg PO BID Qty: 0 magnesium oxide 400 MG capsule 400 mg PO QDAY Qty: 0 pantoprazole 40 MG tablet,delayed release (DR/EC) 40 mg PO 0600 Qty: 60 0RF duloxetine [Cymbalta] 60 MG capsule,delayed release(DR/EC) 60 mg PO QDAY Qty: 0 lidocaine 5 % ointment 1 applic topical BID PRN (Reason: pain) Qty: 50 0RF oxycodone 10 mg tablet 10 mg PO BID PRN (Reason: pain) Qty: 10 0RF cyclobenzaprine 10 mg tablet 10 mg PO TID PRN (Reason: muscle spasm) Qty: 30 0RF Referrals: Sujatha Curiel PA-C [Primary Care Provider] - Stand Alone Forms: Patient Portal/API
[2023-05-10] MEDS: predniSONE 20 MG TABLET 60 MG PO (10:23)
[2023-05-10] MEDS: HYDROMORPHONE 1 MG INJ IM (10:24)
== END 2023-05-10 11:10 | disposition home or self-care (01) ==
PROVIDERS: Emergency Provider Emergency Medicine; PCP Physician Assistant Medical
DX: M54.50 Low back pain, unspecified (principal)
CPT/HCPCS: 96372; 99283; J1170

== ENCOUNTER 2023-05-25 13:36 | Emergency (ER) | payer OTHER, SELFPAY ==
[2021-09-02 12:59] VITALS: BMI 36.3
[2023-05-25 14:09] VITALS: BP 140/90; PULSE 111; RESP 20; TEMP 36.8; O2SAT 98; BMI 34.0
--- NOTE | 2023-05-25 16:12 | ED.LOWEXIN ---
HPI - Extremity Injury (Lower) <Sebastian Leblanc PA-C - Last Filed: 05/25/23 16:51> General Chief Complaint: Extremity Injury, Lower Stated Complaint: L/ hip/leg pain Time Seen by Provider: 05/25/23 15:51 Source: patient Mode of arrival: Ambulatory History of Present Illness HPI Narrative: This is a 52-year-old female presents emergency department complaining of left hip and leg pain patient was seen here 2 weeks ago for similar complaints. Patient states that this is somewhat of a chronic problem for her although she occasionally gets severe flare-ups causing her to come into the emergency department today. She recently received a reported steroid injection, right in the joint by a new orthopedist as scheduled [facility]. Although she states that this is not yet become infected. She has also received epidural injections in the lumbar area which have not helped with her left hip pain. She also reports intermittent numbness and tingling. Denies any weakness. No new injuries to the left hip. Related Data Home Medications Medication Instructions Recorded Confirmed Glucosamine Sulfate (#GLUCOSAMINE) 3,000 mg PO DAILY ##0 08/10/12 09/02/21 MULTIVITAMIN (#MULTIPLE VITAMINS) 1 cap PO QDAY ##0 08/10/12 09/02/21 acetaminophen 500 mg tablet 1,000 mg PO Q6HP ##0 08/10/12 09/02/21 (Tylenol Extra Strength) cetirizine 10 mg tablet 10 mg PO QDAY ##0 08/10/12 09/02/21 cholecalciferol (vitamin D3) 25 3,000 iu PO DAILY ##0 08/10/12 09/02/21 mcg (1,000 unit) tablet (Vitamin D3) citalopram 20 mg tablet (Celexa) 20 mg PO QDAY ##0 08/10/12 09/02/21 gabapentin 300 mg capsule 900 mg PO HS ##0 08/25/12 09/02/21 (Neurontin) calcium citrate 200 mg (950 mg) 2,000 mg PO BID ##0 10/08/16 09/02/21 tablet magnesium oxide 400 mg PO QDAY ##0 10/08/16 09/02/21 duloxetine 60 mg capsule,delayed 60 mg PO QDAY ##0 06/20/17 09/02/21 release (Cymbalta) Previous Rx's Medication Instructions Recorded pantoprazole 40 mg tablet,delayed 40 mg PO 0600 ##60 10/23/16 release lidocaine 5 % topical ointment 1 applic topical BID PRN pain #50 01/11/22 grams oxycodone 10 mg tablet 10 mg PO BID PRN pain #10 tabs 01/11/22 cyclobenzaprine 10 mg tablet 10 mg PO TID PRN muscle spasm #30 04/08/23 tabs diazepam 5 mg tablet (Valium) 5 mg PO Q12HR PRN muscle spasm #10 05/10/23 tabs prednisone 10 mg tablet 10 mg PO DAILY #30 tabs 05/10/23 oxycodone 5 mg capsule 5 mg PO BID PRN pain #10 caps 05/25/23 Allergies Allergy/AdvReac Type Severity Reaction Status Date / Time adhesive Allergy Severe BLISTER, Verified 05/25/23 14:14 SKIN COMES OFF capsaicin [CAPSAICIN] Allergy Severe ANAPHYLAXIS Verified 05/25/23 14:14 shellfish derived Allergy Severe ANAPHYLAXIS Verified 05/25/23 14:14 [SHELLFISH DERIVED] latex [LATEX] Allergy Intermediate BLISTER, Verified 05/25/23 14:14 HIVES oxycodone [From PERCOCET] Allergy Intermediate HIVES Verified 05/25/23 14:14 acetaminophen [From PERCOCET] AdvReac Intermediate HIVES Verified 05/25/23 14:14 Review of Systems <Sebastian Leblanc PA-C - Last Filed: 05/25/23 16:51> Review of Systems Narrative: GENERAL: Denies chills, fatigue, malaise, fever, sweats. HEENT: Denies sinus pain, ear pain, sore throat, difficulty swallowing, dizziness. RESPIRATORY: Denies dyspnea, cough, wheezing, hemoptysis, sputum. CARDIOVASCULAR: Denies chest pain, palpitations, orthopnea, edema, GASTROINTESTINAL: Denies nausea, vomiting, abdominal pain, diarrhea, constipation, melena. : Denies dysuria, frequency, incontinence, hematuria, urinary retention. MUSCULOSKELETAL: reports left hip pain SKIN: Denies rash, skin lesions, or other NEUROLOGIC: Denies weakness, headache, numbness, change in speech, confusion, seizures, incoordination. PSYCHIATRIC: No concerning psychosocial issues. 12 point review of systems is negative except for those stated above Patient History <Sebastian Leblanc PA-C - Last Filed: 05/25/23 16:51> Medical History Depression Fibromyalgia Multiple sclerosis Rheumatoid arthritis Surgical History H/O shoulder surgery Family History Family/Other Multiple sclerosis Father Cancer Social History household members: spouse Smoking Status: Former smoker Smoking Status: Former smoker alcohol intake frequency: holidays/special occasions only Substance Use Type: does not use Exam <Sebastian Leblanc PA-C - Last Filed: 05/25/23 16:51> Narrative Exam Narrative: GENERAL: Well-developed patient, in mild distress. HEAD: Atraumatic. Normocephalic. EYES: Pupils equal round and reactive. Extraocular motions intact. No scleral icterus. No injection or drainage. ENT: Nose without bleeding, purulent drainage. Throat without erythema, tonsillar hypertrophy or exudate. Airway patent. NECK: Trachea midline. Non tender CARDIOVASCULAR: Regular rate and rhythm without murmurs, gallops, or rubs. RESPIRATORY: Clear to auscultation. Breath sounds equal bilaterally. No wheezes, rales, or rhonchi. GASTROINTESTINAL: Abdomen soft, non-tender, nondistended. EXTREMITIES: Tenderness to palpation to left gluteal area BACK: Nontender without deformity or crepitance. No flank tenderness. NEURO: AOx3. SKIN: No rash or erythema of visible areas Initial Vital Signs Initial Vital Signs: Vital Signs Temperature 98.3 F 05/25/23 14:09 Pulse Rate 111 H 05/25/23 14:09 Respiratory Rate 20 05/25/23 14:09 Blood Pressure 140/90 05/25/23 14:09 Pulse Oximetry 98 05/25/23 14:09 Oxygen Delivery Method Room Air 05/25/23 14:09 <Herb Tee DO - Last Filed: 05/25/23 17:33> Initial Vital Signs Initial Vital Signs: Vital Signs Temperature 98.3 F 05/25/23 14:09 Pulse Rate 111 H 05/25/23 14:09 Respiratory Rate 20 05/25/23 14:09 Blood Pressure 140/90 05/25/23 14:09 Pulse Oximetry 98 05/25/23 14:09 Oxygen Delivery Method Room Air 05/25/23 14:09 Course <Sebastian Leblanc PA-C - Last Filed: 05/25/23 16:51> Orders Ordered: Discontinued Medications Hydromorphone HCl (Hydromorphone 1 Mg Inj) 1 mg IM NOW ONE Stop: 05/25/23 16:13 Last Admin: 05/25/23 16:20 Dose: 1 mg Documented By: RB Vital Signs Vital signs: Vital Signs - 8 hr 05/25/23 14:09 05/25/23 17:09 Temperature 98.3 F Pulse Rate 111 H 84 Respiratory Rate 20 16 Blood Pressure 140/90 142/86 H Pulse Oximetry 98 98 Oxygen Delivery Method Room Air Room Air <Herb Tee DO - Last Filed: 05/25/23 17:33> Orders Ordered: Discontinued Medications Hydromorphone HCl (Hydromorphone 1 Mg Inj) 1 mg IM NOW ONE Stop: 05/25/23 16:13 Last Admin: 05/25/23 16:20 Dose: 1 mg Documented By: RB Vital Signs Vital signs: Vital Signs - 8 hr 05/25/23 14:09 05/25/23 17:09 Temperature 98.3 F Pulse Rate 111 H 84 Respiratory Rate 20 16 Blood Pressure 140/90 142/86 H Pulse Oximetry 98 98 Oxygen Delivery Method Room Air Room Air MDM - Extremity Injury (Lower) <Sebastian Leblanc PA-C - Last Filed: 05/25/23 16:51> MDM Narrative Medical decision making narrative: MDM * differential diagnosis includes but not limited to nerve injury, fracture, lumbar radiculopathy, lumbar strain * Prior records reviewed: Patient was seen here 2 weeks ago for acute on chronic lower back pain. History of multiple sclerosis. History of chronic back pain with degenerative changes worse at L5 our/L5. Just finished a long prednisone taper of 2 months. Patient is having pain going down her left lower extremity. No bowel bladder changes. Has an appointment with Orthopedic surgery. She had an MRI 4 months ago which showed moderate disc bulge with central disc protrusion. Patient was given Dilaudid and prednisone in the emergency department. Recommended follow up with Orthopedics. Also has a history of fibromyalgia, depression, hypothyroidism. Has received epidural injections from Dr. Abarca at [facility]. * My lab interpretation: not obtained * My imaging interpretation: none obtained * Clinical Decision Rules/Scores evaluated: None * Independent discussions with: None ED Course: This is a 52-year-old female presents emergency department complaining of acute on chronic pain to the left hip radiating down the left lower extremity. She does report some numbness and tingling although chronic for her. She already has an established orthopedist as scheduled [facility] and recommended patient follow up with them for long-term management with the pain. We will give her a very short course of oxycodone to cover her until she is able to see her primary care provider in 2 days. Patient is also strongly requesting IM Dilaudid this was given but strongly reinforced the fact that the emergency department is not the appropriate place for Re continuous visits for repeat pain medication. Strongly recommended patient follow up and work with the orthopedist as well as primary care provider for long-term resolution of her symptoms. Patient has already had a lumbar MRI as well as a left hip MRI being managed by her orthopedist. No emergent needs at this time. Shared Decision Making: Discussed plan with the patient who is comfortable with the plan. Social Considerations: None Disposition: Discharged home Discharge Plan Departure Patient Disposition: Home Clinical Impression: Acute pain of left hip Activity Restrictions/Additional Instructions: Thank you for coming to the [facility] Emergency Department today. As we discussed recommend he follow up with the primary care provider on Friday as well as your orthopedist for long-term management of your left hip pain. I recommend you follow up with them ratherThan return to the emergency department for repeat injections and pain control. Your primary care provider is the best person for long-term management of this. I hope you feel better soon. Please follow up with your primary care provider within a week. If you do not have a primary care provider please contact the [facility] Resource line at [phone]. They will ask some questions about your medical history and help you get set up with a provider in the community. Prescriptions: New oxycodone 5 mg capsule 5 mg PO BID PRN (Reason: pain) Qty: 10 0RF No Action cholecalciferol (vitamin D3) [Vitamin D3] 1,000 UNIT tablet 3,000 iu PO DAILY Qty: 0 acetaminophen [Tylenol Extra Strength] 500 MG tablet 1,000 mg PO Q6HP Qty: 0 MULTIVITAMIN (#MULTIPLE VITAMINS) 1 cap PO QDAY Qty: 0 citalopram [Celexa] 20 MG tablet 20 mg PO QDAY Qty: 0 cetirizine 10 MG tablet 10 mg PO QDAY Qty: 0 Glucosamine Sulfate (#GLUCOSAMINE) capsule 3,000 mg PO DAILY Qty: 0 gabapentin [Neurontin] 300 MG capsule 900 mg PO HS Qty: 0 calcium citrate 200 MG tablet 2,000 mg PO BID Qty: 0 magnesium oxide 400 MG capsule 400 mg PO QDAY Qty: 0 pantoprazole 40 MG tablet,delayed release (DR/EC) 40 mg PO 0600 Qty: 60 0RF duloxetine [Cymbalta] 60 MG capsule,delayed release(DR/EC) 60 mg PO QDAY Qty: 0 lidocaine 5 % ointment 1 applic topical BID PRN (Reason: pain) Qty: 50 0RF oxycodone 10 mg tablet 10 mg PO BID PRN (Reason: pain) Qty: 10 0RF cyclobenzaprine 10 mg tablet 10 mg PO TID PRN (Reason: muscle spasm) Qty: 30 0RF prednisone 10 mg tablet 10 mg PO DAILY Qty: 30 0RF Rx Instructions: day 1-3: 40 mg once a day day 4-6: 30 mg once a day day 7-9: 20 mg once a day day 10-12: 10 mg once a day diazepam [Valium] 5 mg tablet 5 mg PO Q12HR PRN (Reason: muscle spasm) Qty: 10 0RF Referrals: Sujatha Curiel PA-C [Primary Care Provider] - Stand Alone Forms: Patient Portal/API <Herb Tee DO - Last Filed: 05/25/23 17:33> [facility]: Dr Tee Co-Sign Statement: I was available for consultation during this patient's emergency department visit. This chart is signed by myself for administrative purposes only. I did not have direct contact with this patient during this visit. They were seen independently by the APC.
[2023-05-25] MEDS: HYDROMORPHONE 1 MG INJ IM (16:20)
[2023-05-25 17:09] VITALS: BP 142/86; PULSE 84; RESP 16; O2SAT 98
== END 2023-05-25 17:10 | disposition home or self-care (01) ==
PROVIDERS: Emergency Provider Physician Assistant Medical; PCP Physician Assistant Medical
DX: M25.552 Pain in left hip (principal)
CPT/HCPCS: 96372; 99283; J1170

== ENCOUNTER 2023-06-10 04:23 | Emergency (ER) | payer OTHER, SELFPAY ==
[2021-09-02 12:59] VITALS: BMI 36.3
[2023-06-10 04:30] VITALS: BP 223/112; PULSE 115; RESP 22; TEMP 37.1; O2SAT 98; BMI 38.0
[2023-06-10] MEDS: HYDROMORPHONE 1 MG INJ IM (04:36)
--- NOTE | 2023-06-10 04:46 | ED_ITS ---
HPI - Back Pain/Injury General Chief Complaint: Back Pain/Injury Stated Complaint: back pain Time Seen by Provider: 06/10/23 04:28 Source: patient Mode of arrival: Wheelchair Limitations: no limitations History of Present Illness HPI Narrative: Patient is a 52-year-old female. Has known history of fibromyalgia and rheumatoid arthritis. He is a longstanding history of lower back pain. Has degenerative disc disease based on a MRI that was done earlier this year. She is had steroid injections in her back. She was seen here in the emergency department couple times at the end of last month for back discomfort. She has followed up with Orthopedic surgery. She received a steroid injection in her left hip over her greater trochanter. She followed up again last Friday. She is scheduled for another MRI. She is an appointment with her primary doctor on this Friday. She states that she takes hydrocodone at home. She states this medication very often helps her symptoms and makes him more tolerable but she ran out of the medication yesterday. She was told by her insurance company that she needs prior authorization before she can get another refill this medicine. She denies any new trauma. Related Data Home Medications Medication Instructions Recorded Confirmed Glucosamine Sulfate (#GLUCOSAMINE) 3,000 mg PO DAILY ##0 08/10/12 09/02/21 MULTIVITAMIN (#MULTIPLE VITAMINS) 1 cap PO QDAY ##0 08/10/12 09/02/21 acetaminophen 500 mg tablet 1,000 mg PO Q6HP ##0 08/10/12 09/02/21 (Tylenol Extra Strength) cetirizine 10 mg tablet 10 mg PO QDAY ##0 08/10/12 09/02/21 cholecalciferol (vitamin D3) 25 3,000 iu PO DAILY ##0 08/10/12 09/02/21 mcg (1,000 unit) tablet (Vitamin D3) citalopram 20 mg tablet (Celexa) 20 mg PO QDAY ##0 08/10/12 09/02/21 gabapentin 300 mg capsule 900 mg PO HS ##0 08/25/12 09/02/21 (Neurontin) calcium citrate 200 mg (950 mg) 2,000 mg PO BID ##0 10/08/16 09/02/21 tablet magnesium oxide 400 mg PO QDAY ##0 10/08/16 09/02/21 duloxetine 60 mg capsule,delayed 60 mg PO QDAY ##0 06/20/17 09/02/21 release (Cymbalta) Previous Rx's Medication Instructions Recorded pantoprazole 40 mg tablet,delayed 40 mg PO 0600 ##60 10/23/16 release lidocaine 5 % topical ointment 1 applic topical BID PRN pain #50 01/11/22 grams oxycodone 10 mg tablet 10 mg PO BID PRN pain #10 tabs 01/11/22 cyclobenzaprine 10 mg tablet 10 mg PO TID PRN muscle spasm #30 04/08/23 tabs diazepam 5 mg tablet (Valium) 5 mg PO Q12HR PRN muscle spasm #10 05/10/23 tabs prednisone 10 mg tablet 10 mg PO DAILY #30 tabs 05/10/23 oxycodone 5 mg capsule 5 mg PO BID PRN pain #10 caps 05/25/23 Allergies Allergy/AdvReac Type Severity Reaction Status Date / Time adhesive Allergy Severe BLISTER, Verified 05/25/23 14:14 SKIN COMES OFF capsaicin [CAPSAICIN] Allergy Severe ANAPHYLAXIS Verified 05/25/23 14:14 shellfish derived Allergy Severe ANAPHYLAXIS Verified 05/25/23 14:14 [SHELLFISH DERIVED] latex [LATEX] Allergy Intermediate BLISTER, Verified 05/25/23 14:14 HIVES oxycodone [From PERCOCET] Allergy Intermediate HIVES Verified 05/25/23 14:14 acetaminophen [From PERCOCET] AdvReac Intermediate HIVES Verified 05/25/23 14:14 Review of Systems Constitutional Constitutional: Reports system reviewed and no additional complaints, except as documented Musculoskeletal Musculoskeletal: Reports system reviewed and no additional complaints, except as documented Integumentary/Breasts Skin/Breast: Reports system reviewed and no additional complaints, except as documented Neurologic Neurologic: Reports system reviewed and no additional complaints, except as docu mented Patient History Medical History Depression Fibromyalgia Multiple sclerosis Rheumatoid arthritis Surgical History H/O shoulder surgery Family History Family/Other Multiple sclerosis Father Cancer Social History household members: spouse Smoking Status: Former smoker Smoking Status: Former smoker alcohol intake frequency: holidays/special occasions only Substance Use Type: does not use Exam Initial Vital Signs Initial Vital Signs: Vital Signs Temperature 98.7 F 06/10/23 04:30 Pulse Rate 115 H 06/10/23 04:30 Respiratory Rate 22 06/10/23 04:30 Blood Pressure 223/112 H 06/10/23 04:30 Pulse Oximetry 98 06/10/23 04:30 Oxygen Delivery Method Room Air 06/10/23 04:30 Const General: cooperative and No ill appearing HENMT Head: normal to inspection Back/Spine/Pelvis Other: Some mild discomfort with palpation of the left lumbar paraspinal region Neuro General: patient alert and patient awake Extrem Other: Discomfort over the SI joint and greater trochanter of the left. Course Orders Ordered: Discontinued Medications Hydrocodone Bitart/Acetaminophen (Hydrocodone/Acet 5/325 Prepack) 1 bottle MISC SEEINSTR ONE Stop: 06/10/23 05:21 Hydromorphone HCl (Hydromorphone 1 Mg Inj) 1 mg IM NOW ONE Stop: 06/10/23 04:32 Last Admin: 06/10/23 04:36 Dose: 1 mg Documented By: Ketorolac Tromethamine (Ketorolac 30 Mg/Ml Vial) 30 mg IM NOW ONE Stop: 06/10/23 04:45 Last Admin: 06/10/23 04:48 Dose: 30 mg Vital Signs Vital signs: Vital Signs - 8 hr 06/10/23 04:30 06/10/23 05:16 Temperature 98.7 F Pulse Rate 115 H 94 H Respiratory Rate 22 18 Blood Pressure 223/112 H 180/94 H Pulse Oximetry 98 94 Oxygen Delivery Method Room Air Room Air MDM - Back Pain/Injury MDM Narrative Medical decision making narrative: Patient reports improvement of symptoms after medications here in the ER. No indication for emergent radiologic studies. Low suspicion for cauda equina, fracture, hematoma, abscess. Afebrile. Will discharge patient home with a prepack of hydrocodone and she will need to talk with her primary doctor about pre authorization for more this medication. She was instructed to keep all of her scheduled medical appointments. She was given return precautions. She expressed understanding and agreement. Discharge Plan Departure Patient Disposition: Home Clinical Impression: Low back pain, Left hip pain Instructions: DI for Low Back Pain Activity Restrictions/Additional Instructions: I do recommend that you keep all of your scheduled medical appointments to include your appointment with your primary doctor later this week. Also recommend that you keep all of your scheduled appointments with the orthopedic surgeon. Return to the emergency department for new symptoms. Prescriptions: No Action cholecalciferol (vitamin D3) [Vitamin D3] 1,000 UNIT tablet 3,000 iu PO DAILY Qty: 0 acetaminophen [Tylenol Extra Strength] 500 MG tablet 1,000 mg PO Q6HP Qty: 0 MULTIVITAMIN (#MULTIPLE VITAMINS) 1 cap PO QDAY Qty: 0 citalopram [Celexa] 20 MG tablet 20 mg PO QDAY Qty: 0 cetirizine 10 MG tablet 10 mg PO QDAY Qty: 0 Glucosamine Sulfate (#GLUCOSAMINE) capsule 3,000 mg PO DAILY Qty: 0 gabapentin [Neurontin] 300 MG capsule 900 mg PO HS Qty: 0 calcium citrate 200 MG tablet 2,000 mg PO BID Qty: 0 magnesium oxide 400 MG capsule 400 mg PO QDAY Qty: 0 pantoprazole 40 MG tablet,delayed release (DR/EC) 40 mg PO 0600 Qty: 60 0RF duloxetine [Cymbalta] 60 MG capsule,delayed release(DR/EC) 60 mg PO QDAY Qty: 0 lidocaine 5 % ointment 1 applic topical BID PRN (Reason: pain) Qty: 50 0RF oxycodone 10 mg tablet 10 mg PO BID PRN (Reason: pain) Qty: 10 0RF cyclobenzaprine 10 mg tablet 10 mg PO TID PRN (Reason: muscle spasm) Qty: 30 0RF prednisone 10 mg tablet 10 mg PO DAILY Qty: 30 0RF Rx Instructions: day 1-3: 40 mg once a day day 4-6: 30 mg once a day day 7-9: 20 mg once a day day 10-12: 10 mg once a day diazepam [Valium] 5 mg tablet 5 mg PO Q12HR PRN (Reason: muscle spasm) Qty: 10 0RF oxycodone 5 mg capsule 5 mg PO BID PRN (Reason: pain) Qty: 10 0RF Referrals: Sujatha Curiel PA-C [Primary Care Provider] - Stand Alone Forms: Patient Portal/API
[2023-06-10] MEDS: KETOROLAC 30 MG/ML VIAL IM (04:48)
[2023-06-10 05:16] VITALS: BP 180/94; PULSE 94; RESP 18; O2SAT 94
[2023-06-10] MEDS: HYDROCODONE/ACET 5/325 PREPACK 1 BOTTLE MISC (05:25)
== END 2023-06-10 05:29 | disposition home or self-care (01) ==
PROVIDERS: Emergency Provider Emergency Medicine; PCP Physician Assistant Medical
DX: M54.50 Low back pain, unspecified (principal); M25.552 Pain in left hip
CPT/HCPCS: 96372; 99283; J1170; J1885

== ENCOUNTER 2023-06-11 14:52 | Emergency (ER) | payer OTHER, SELFPAY ==
[2021-09-02 12:59] VITALS: BMI 36.3
[2023-06-11 15:02] VITALS: BP 175/104; PULSE 120; RESP 24; TEMP 36.6; O2SAT 99; BMI 37.8
[2023-06-11] MEDS: HYDROMORPHONE 1 MG INJ IV (15:50)
--- NOTE | 2023-06-11 15:59 | PC.NURSE ---
Pain in lower back shooting down her left leg. Position of comfort in bed laying on stomach. Denies loss of bowel or bladder does reports some difficulty starting stream
[2023-06-11 16:00] VITALS: RESP 12; O2SAT 98
--- NOTE | 2023-06-11 16:05 | DI.MRI.S_ITS ---
PROCEDURE: MR LUMBAR SPINE WO CON INDICATIONS: left low back pain w/ parethesias LLE, difficulty urinating TECHNIQUE: Noncontrast sagittal T1 spin echo and T2 fast echo, sagittal STIR, and T2 fast spin echo through the lumbar spine. In cases with scoliosis, additional coronal T2 fast spin echo may be performed. COMPARISON: [facility], MR, MR LUMBAR SPINE WO CON, 01/24/2023, 19:45. FINDINGS: Image quality: Excellent. Alignment and Curvature: Minimal increase in anterolisthesis of L4 on L5, previously approximately 4 mm and currently approximately 5 mm Bone Marrow: Marrow is of normal overall signal. No acute vertebral body compression fractures. Spinal Cord: Conus medullaris terminates at the L1 level. Visualized cord demonstrates normal signal and size. Paraspinous Soft Tissues: No paravertebral masses. T12-L1: Normal appearance. L1-L2: Disc bulge. Mild facet hypertrophy. No canal stenosis or foraminal stenosis. L2-L3: Disc bulge. Facet hypertrophy. No canal stenosis or foraminal stenosis. L3-L4: Disc bulge. Facet hypertrophy. No canal stenosis. [id number] left foraminal stenosis. L4-L5: Progressive findings at L4-L5. Slight interval increase in anterolisthesis of L4 on L5. Diffuse disc bulge. Prominent facet and ligament hypertrophy. Worsening of canal stenosis, with severe canal stenosis now present. Moderate right foraminal narrowing and moderate to severe left foraminal narrowing with mild foraminal impingement on the left L4 nerve root. Foraminal narrowing is increased. L5-S1: Disc bulge. Facet hypertrophy. No canal stenosis or foraminal stenosis. IMPRESSION: 1. There is multilevel underlying facet arthropathy, impressive at L4-L5. 2. Progression of findings at L4-L5. Canal stenosis is now severe. Foraminal stenosis has increased, as well. It is moderate on the right and moderate to severe on the left. Dictated by: Nikita London M.D. on 06/11/2023 at 16:51 Approved by: Nikita London M.D. on 06/11/2023 at 17:06
[2023-06-11] MEDS: HYDROMORPHONE 0.5 MG INJ IV ×2 (16:16→17:50)
--- NOTE | 2023-06-11 16:48 | ED.BACK ---
HPI - Back Pain/Injury <Johanna Wahl PA-C - Last Filed: 06/11/23 18:47> General Chief Complaint: Back Pain/Injury Stated Complaint: Lower Back Pain Time Seen by Provider: 06/11/23 15:25 Source: patient History of Present Illness HPI Narrative: Patient is a 52-year-old female who presents with left low back pain that radiates down her left leg, and numbness of her posterior left calf, with additional areas of numbness on her left 1st toe. She rates her pain 10/10. She has a history of fibromyalgia and rheumatoid arthritis and chronic low back pain. She has degenerative disc disease based on a MRI that was done earlier this year.? She has had steroid injections in her back and her left hip, but no back surgery. She was seen here in the emergency department a couple times at the end of April for back discomfort. She was seen in the curriculum [facility] yesterday, June 10, for pain. She was given a prepack of hydrocodone but has already used the medication. She returns today with severe pain and difficulty urinating, which she reports is new. She can not sit on the toilet, which may have something to do with her difficulty urinating. She does not have a MRI scheduled because of miscommunication or insurance issues, it is unclear the exact details but nothing is currently scheduled. Related Data Home Medications Medication Instructions Recorded Confirmed Glucosamine Sulfate (#GLUCOSAMINE) 3,000 mg PO DAILY ##0 08/10/12 09/02/21 MULTIVITAMIN (#MULTIPLE VITAMINS) 1 cap PO QDAY ##0 08/10/12 09/02/21 acetaminophen 500 mg tablet 1,000 mg PO Q6HP ##0 08/10/12 09/02/21 (Tylenol Extra Strength) cetirizine 10 mg tablet 10 mg PO QDAY ##0 08/10/12 09/02/21 cholecalciferol (vitamin D3) 25 3,000 iu PO DAILY ##0 08/10/12 09/02/21 mcg (1,000 unit) tablet (Vitamin D3) citalopram 20 mg tablet (Celexa) 20 mg PO QDAY ##0 08/10/12 09/02/21 gabapentin 300 mg capsule 900 mg PO HS ##0 08/25/12 09/02/21 (Neurontin) calcium citrate 200 mg (950 mg) 2,000 mg PO BID ##0 10/08/16 09/02/21 tablet magnesium oxide 400 mg PO QDAY ##0 10/08/16 09/02/21 duloxetine 60 mg capsule,delayed 60 mg PO QDAY ##0 06/20/17 09/02/21 release (Cymbalta) Previous Rx's Medication Instructions Recorded pantoprazole 40 mg tablet,delayed 40 mg PO 0600 ##60 10/23/16 release lidocaine 5 % topical ointment 1 applic topical BID PRN pain #50 01/11/22 grams oxycodone 10 mg tablet 10 mg PO BID PRN pain #10 tabs 01/11/22 cyclobenzaprine 10 mg tablet 10 mg PO TID PRN muscle spasm #30 04/08/23 tabs diazepam 5 mg tablet (Valium) 5 mg PO Q12HR PRN muscle spasm #10 05/10/23 tabs prednisone 10 mg tablet 10 mg PO DAILY #30 tabs 05/10/23 oxycodone 5 mg capsule 5 mg PO BID PRN pain #10 caps 05/25/23 oxycodone 5 mg tablet 5 mg PO Q4-6H PRN pain, severe #12 06/11/23 tabs Allergies Allergy/AdvReac Type Severity Reaction Status Date / Time adhesive Allergy Severe BLISTER, Verified 05/25/23 14:14 SKIN COMES OFF capsaicin [CAPSAICIN] Allergy Severe ANAPHYLAXIS Verified 05/25/23 14:14 shellfish derived Allergy Severe ANAPHYLAXIS Verified 05/25/23 14:14 [SHELLFISH DERIVED] latex [LATEX] Allergy Intermediate BLISTER, Verified 05/25/23 14:14 HIVES oxycodone [From PERCOCET] Allergy Intermediate HIVES Verified 05/25/23 14:14 acetaminophen [From PERCOCET] AdvReac Intermediate HIVES Verified 05/25/23 14:14 Review of Systems <Johanna Wahl PA-C - Last Filed: 06/11/23 18:47> Review of Systems ROS Unobtainable: All systems reviewed & are unremarkable except as noted in HPI and below Patient History <Johanna Wahl PA-C - Last Filed: 06/11/23 18:47> Medical History Depression Fibromyalgia Multiple sclerosis Rheumatoid arthritis Surgical History H/O shoulder surgery Family History Family/Other Multiple sclerosis Father Cancer Social History household members: spouse Smoking Status: Former smoker Smoking Status: Former smoker alcohol intake frequency: holidays/special occasions only Substance Use Type: does not use Exam <Johanna Wahl PA-C - Last Filed: 06/11/23 18:47> Narrative Exam Narrative: GENERAL: 52 year old patient appears stated age. Well-developed patient, in significant distress. NEURO: AOx3. HEAD: Atraumatic. Normocephalic. EYES: Pupils equal round and reactive. Extraocular motions intact. No scleral icterus. CARDIOVASCULAR: Regular rate and rhythm without murmurs, gallops, or rubs. RESPIRATORY: Clear to auscultation. Breath sounds equal bilaterally. No wheezes, rales, or rhonchi. BACK/EXTREMITIES: Pain localizes over left SI joint, tender to palpation. Left calf very tender to touch. Left DP pulse intact. Patient endorses altered sensation over lateral malleolus and great toe. 2/5 strength with knee flexion/extension, dorsiflexion and plantar flexion. Strength 5/5 with same exams on right lower extremity. SKIN: No rash or erythema of visible areas Initial Vital Signs Initial Vital Signs: Vital Signs Temperature 98 F 06/11/23 15:02 Pulse Rate 120 H 06/11/23 15:02 Respiratory Rate 24 06/11/23 15:02 Blood Pressure 175/104 H 06/11/23 15:02 Pulse Oximetry 99 06/11/23 15:02 Oxygen Delivery Method Room Air 06/11/23 15:02 <Tk Booker DO - Last Filed: 06/13/23 17:07> Initial Vital Signs Initial Vital Signs: Vital Signs Temperature 98 F 06/11/23 15:02 Pulse Rate 120 H 06/11/23 15:02 Respiratory Rate 24 06/11/23 15:02 Blood Pressure 175/104 H 06/11/23 15:02 Pulse Oximetry 99 06/11/23 15:02 Oxygen Delivery Method Room Air 06/11/23 15:02 Course <Johanna Wahl PA-C - Last Filed: 06/11/23 18:47> Orders Ordered: Discontinued Medications Hydromorphone HCl (Hydromorphone 1 Mg Inj) 1 mg IV NOW ONE Stop: 06/11/23 15:34 Last Admin: 06/11/23 15:50 Dose: 1 mg Documented By: RODNEY Hydromorphone HCl (Hydromorphone 0.5 Mg Inj) 0.5 mg IV NOW ONE Stop: 06/11/23 16:06 Last Admin: 06/11/23 16:16 Dose: 0.5 mg Documented By: RODNEY Hydromorphone HCl (Hydromorphone 0.5 Mg Inj) 0.5 mg IV NOW ONE Stop: 06/11/23 17:41 Last Admin: 06/11/23 17:50 Dose: 0.5 mg Documented By: RODNEY Vital Signs Vital signs: Vital Signs - 8 hr 06/11/23 15:02 06/11/23 16:00 06/11/23 18:08 Temperature 98 F Pulse Rate 120 H 78 Respiratory Rate 24 12 16 Blood Pressure 175/104 H 178/100 H Pulse Oximetry 99 98 99 Oxygen Delivery Method Room Air Room Air Room Air <Tk Booker DO - Last Filed: 06/13/23 17:07> Orders Ordered: Discontinued Medications Hydromorphone HCl (Hydromorphone 1 Mg Inj) 1 mg IV NOW ONE Stop: 06/11/23 15:34 Last Admin: 06/11/23 15:50 Dose: 1 mg Documented By: RODNEY Hydromorphone HCl (Hydromorphone 0.5 Mg Inj) 0.5 mg IV NOW ONE Stop: 06/11/23 16:06 Last Admin: 06/11/23 16:16 Dose: 0.5 mg Documented By: RODNEY Hydromorphone HCl (Hydromorphone 0.5 Mg Inj) 0.5 mg IV NOW ONE Stop: 06/11/23 17:41 Last Admin: 06/11/23 17:50 Dose: 0.5 mg Documented By: RODNEY Vital Signs Vital signs: Vital Signs - 8 hr 06/11/23 15:02 06/11/23 16:00 06/11/23 18:08 Temperature 98 F Pulse Rate 120 H 78 Respiratory Rate 24 12 16 Blood Pressure 175/104 H 178/100 H Pulse Oximetry 99 98 99 Oxygen Delivery Method Room Air Room Air Room Air MDM - Back Pain/Injury <Johanna Wahl PA-C - Last Filed: 06/11/23 18:47> Imaging Data lumbar MRI: Radiologist's Impression: PROCEDURE:? MR LUMBAR SPINE WO CON ? INDICATIONS:? left low back pain w/ parethesias LLE, difficulty urinating ? TECHNIQUE:? Noncontrast sagittal T1 spin echo and T2 fast echo, sagittal STIR, and T2 fast spin echo through the lumbar spine.? In cases with scoliosis, additional coronal T2 fast spin echo may be performed.? ? COMPARISON:? [facility], , MR LUMBAR SPINE WO CON, 01/24/2023, 19:45. ? FINDINGS:? Image quality:? Excellent.? ? Alignment and Curvature:? Minimal increase in anterolisthesis of L4 on L5, previously approximately 4 mm and currently approximately 5 mm ? Bone Marrow:? Marrow is of normal overall signal.? No acute vertebral body compression fractures.? ? Spinal Cord:? Conus medullaris terminates at the L1 level.? Visualized cord demonstrates normal signal and size.? ? Paraspinous Soft Tissues:? No paravertebral masses.? ? T12-L1:? Normal appearance.? ? L1-L2:? Disc bulge.? Mild facet hypertrophy. No canal stenosis or foraminal stenosis. ? L2-L3:? Disc bulge.? Facet hypertrophy. No canal stenosis or foraminal stenosis. ? L3-L4:? Disc bulge.? Facet hypertrophy.? No canal stenosis.? [id number] left foraminal stenosis. ? L4-L5:? Progressive findings at L4-L5.? Slight interval increase in anterolisthesis of L4 on L5.? Diffuse disc bulge.? Prominent facet and ligament hypertrophy.? Worsening of canal stenosis, with severe canal stenosis now present.? Moderate right foraminal narrowing and moderate to severe left foraminal narrowing with mild foraminal impingement on the left L4 nerve root.? Foraminal narrowing is increased. ? L5-S1:? Disc bulge.? Facet hypertrophy. No canal stenosis or foraminal stenosis. ? ? IMPRESSION:? ? 1. There is multilevel underlying facet arthropathy, impressive at L4-L5. ? 2. Progression of findings at L4-L5.? Canal stenosis is now severe.? Foraminal stenosis has increased, as well.? It is moderate on the right and moderate to severe on the left. ? Dictated by: Nikita London M.D. on 06/11/2023 at 16:51 ? ? Approved by: Nikita London M.D. on 06/11/2023 at 17:06 MDM Narrative Medical decision making narrative: Multiple etiologies for patient's symptoms considered including, but not limited to: Exacerbation of chronic low back pain, cauda equina syndrome. Concern for cauda equina syndrome given report of difficulty initiating and sustaining urine stream and weakness in right lower extremity. MRI not consistent cauda equina syndrome. Pre and post void bladder scan demonstrate the patient is able to fully evacuate her bladder. Patient's pain controlled with 2 mg hydromorphone IV while in the emergency department. Patient has primary care follow-up appointment on Friday to establish pain management plan. She can not access more hydrocodone at this time due to her insurance; we will give her 1-1/2 days' worth of oxycodone for pain until she sees her PCP. Offered referral to ortho spine, she already has a referral to a provider she prefers. Prior Charts reviewed: Last 3 visits Imaging reviewed: MRI today reviewed Patient's symptoms improved over duration of stay with above-stated therapies. Findings and discharge diagnosis discussed with patient/family followed by verbalization of understanding Return precautions discussed with patient/family whom verbalize understanding of diagnosis and plan Discharge Plan Departure Patient Disposition: Home Clinical Impression: Chronic radicular low back pain Instructions: DI for Low Back Pain Activity Restrictions/Additional Instructions: *You have been diagnosed with chronic low back pain. You have a follow-up appointment with your primary care provider on 06/13; I will prescribe oxycodone to last until then since your insurance will not cover any more hydrocodone at this time. We also discussed steroids, muscle relaxers, gabapentin; you recently got off of steroids and already take max dose gabapentin, and have muscle relaxers at home so those will not be prescribed today. *What to do: *Please continue to take your regular medications as directed. [x ] New medication prescriptions sent to your pharmacy: [[facility]] [ ] New medication written as a paper prescription [ ] No new medications given *Please follow up with your primary care provider in 2-3 days, call for an appointment. Let them know you were seen in the Emergency Department and that we ask that you be seen in follow up. We will electronically transmit a record of today's note if your PCP is in our system *If you do not have a primary care provider please contact the [facility] Resource line at [phone]. They will ask some questions about your medical history and help get you set up with a doctor in the community. *Return to Emergency Department if you should have any new, worsening or concerning symptoms, such as [fever greater than 101 F, shaking chills, worsening pain, persistent vomiting or other bothersome symptoms] Prescriptions: New oxycodone 5 mg tablet 5 mg PO Q4-6H PRN (Reason: pain, severe) Qty: 12 0RF No Action cholecalciferol (vitamin D3) [Vitamin D3] 1,000 UNIT tablet 3,000 iu PO DAILY Qty: 0 acetaminophen [Tylenol Extra Strength] 500 MG tablet 1,000 mg PO Q6HP Qty: 0 MULTIVITAMIN (#MULTIPLE VITAMINS) 1 cap PO QDAY Qty: 0 citalopram [Celexa] 20 MG tablet 20 mg PO QDAY Qty: 0 cetirizine 10 MG tablet 10 mg PO QDAY Qty: 0 Glucosamine Sulfate (#GLUCOSAMINE) capsule 3,000 mg PO DAILY Qty: 0 gabapentin [Neurontin] 300 MG capsule 900 mg PO HS Qty: 0 calcium citrate 200 MG tablet 2,000 mg PO BID Qty: 0 magnesium oxide 400 MG capsule 400 mg PO QDAY Qty: 0 pantoprazole 40 MG tablet,delayed release (DR/EC) 40 mg PO 0600 Qty: 60 0RF duloxetine [Cymbalta] 60 MG capsule,delayed release(DR/EC) 60 mg PO QDAY Qty: 0 lidocaine 5 % ointment 1 applic topical BID PRN (Reason: pain) Qty: 50 0RF oxycodone 10 mg tablet 10 mg PO BID PRN (Reason: pain) Qty: 10 0RF cyclobenzaprine 10 mg tablet 10 mg PO TID PRN (Reason: muscle spasm) Qty: 30 0RF prednisone 10 mg tablet 10 mg PO DAILY Qty: 30 0RF Rx Instructions: day 1-3: 40 mg once a day day 4-6: 30 mg once a day day 7-9: 20 mg once a day day 10-12: 10 mg once a day diazepam [Valium] 5 mg tablet 5 mg PO Q12HR PRN (Reason: muscle spasm) Qty: 10 0RF oxycodone 5 mg capsule 5 mg PO BID PRN (Reason: pain) Qty: 10 0RF Referrals: Sujatha Curiel PA-C [Primary Care Provider] - Stand Alone Forms: Patient Portal/API <Tk Booker DO - Last Filed: 06/13/23 17:07> Cosign ED Attending Solomon Attestation: I was immediately available in the department for consultation. Documentation has been reviewed. I agree with assessment and plan.
[2023-06-11 18:08] VITALS: BP 178/100; PULSE 78; RESP 16; O2SAT 99
== END 2023-06-11 18:09 | disposition home or self-care (01) ==
PROVIDERS: Emergency Provider Physician Assistant; PCP Physician Assistant Medical
DX: M54.50 Low back pain, unspecified (principal)
CPT/HCPCS: 51798; 72148; 96374; 96376; 99284; J1170

== ENCOUNTER 2023-06-14 08:02 | Emergency (ER) | payer OTHER, SELFPAY ==
[2021-09-02 12:59] VITALS: BMI 36.3
[2023-06-14 08:09] VITALS: BP 144/101; PULSE 117; RESP 18; TEMP 36.9; O2SAT 97; BMI 37.8
--- NOTE | 2023-06-14 08:20 | ED_ITS ---
HPI - Back Pain/Injury General Chief Complaint: Back Pain/Injury Stated Complaint: sever lower back pain Time Seen by Provider: 06/14/23 08:10 Source: patient History of Present Illness HPI Narrative: 52-year-old female with history of known worsening lumbar radiculopathy presents with severe low back pain and radiation into her left leg. She has some numbness and tingling but denies weakness. She denies any recent trauma or injury. She denies fever or chills and has no loss of control of bowel or bladder. Her pain is severe when she moves and even seemed to be ramping up when she is motionless. She was seen and evaluated here last week and had an MRI confirming central canal stenosis. She has referrals in place for [facility] and has also been pursuing referral to [facility]. She saw her primary care provider yesterday and has multiple prescriptions waiting for her but there was an insurance kick up and she can not get them filled until later today. She is hoping for some temporary relief Related Data Home Medications Medication Instructions Recorded Confirmed Glucosamine Sulfate (#GLUCOSAMINE) 3,000 mg PO DAILY ##0 08/10/12 09/02/21 MULTIVITAMIN (#MULTIPLE VITAMINS) 1 cap PO QDAY ##0 08/10/12 09/02/21 acetaminophen 500 mg tablet 1,000 mg PO Q6HP ##0 08/10/12 09/02/21 (Tylenol Extra Strength) cetirizine 10 mg tablet 10 mg PO QDAY ##0 08/10/12 09/02/21 cholecalciferol (vitamin D3) 25 3,000 iu PO DAILY ##0 08/10/12 09/02/21 mcg (1,000 unit) tablet (Vitamin D3) citalopram 20 mg tablet (Celexa) 20 mg PO QDAY ##0 08/10/12 09/02/21 gabapentin 300 mg capsule 900 mg PO HS ##0 08/25/12 09/02/21 (Neurontin) calcium citrate 200 mg (950 mg) 2,000 mg PO BID ##0 10/08/16 09/02/21 tablet magnesium oxide 400 mg PO QDAY ##0 10/08/16 09/02/21 duloxetine 60 mg capsule,delayed 60 mg PO QDAY ##0 06/20/17 09/02/21 release (Cymbalta) Previous Rx's Medication Instructions Recorded pantoprazole 40 mg tablet,delayed 40 mg PO 0600 ##60 10/23/16 release lidocaine 5 % topical ointment 1 applic topical BID PRN pain #50 01/11/22 grams oxycodone 10 mg tablet 10 mg PO BID PRN pain #10 tabs 01/11/22 cyclobenzaprine 10 mg tablet 10 mg PO TID PRN muscle spasm #30 04/08/23 tabs diazepam 5 mg tablet (Valium) 5 mg PO Q12HR PRN muscle spasm #10 05/10/23 tabs prednisone 10 mg tablet 10 mg PO DAILY #30 tabs 05/10/23 oxycodone 5 mg capsule 5 mg PO BID PRN pain #10 caps 05/25/23 oxycodone 5 mg tablet 5 mg PO Q4-6H PRN pain, severe #12 06/11/23 tabs Allergies Allergy/AdvReac Type Severity Reaction Status Date / Time adhesive Allergy Severe BLISTER, Verified 06/14/23 08:14 SKIN COMES OFF capsaicin [CAPSAICIN] Allergy Severe ANAPHYLAXIS Verified 06/14/23 08:14 shellfish derived Allergy Severe ANAPHYLAXIS Verified 06/14/23 08:14 [SHELLFISH DERIVED] latex [LATEX] Allergy Intermediate BLISTER, Verified 06/14/23 08:14 HIVES oxycodone [From PERCOCET] Allergy Intermediate HIVES Verified 06/14/23 08:14 acetaminophen [From PERCOCET] AdvReac Intermediate HIVES Verified 06/14/23 08:14 Review of Systems Review of Systems Narrative: GENERAL: Denies chills, fatigue, malaise, fever, sweats. HEENT: Denies sinus pain, ear pain, sore throat, difficulty swallowing, dizziness. RESPIRATORY: Denies dyspnea, cough, wheezing, hemoptysis, sputum. CARDIOVASCULAR: Denies chest pain, palpitations, orthopnea, edema, GASTROINTESTINAL: Denies nausea, vomiting, abdominal pain, diarrhea, constipation, melena. : Denies dysuria, frequency, incontinence, hematuria, urinary retention. MUSCULOSKELETAL: See HPI SKIN: Denies rash, skin lesions, or other NEUROLOGIC: See HPI PSYCHIATRIC: No concerning psychosocial issues. 12 point review of systems is negative except for those stated above Patient History Medical History Depression Fibromyalgia Multiple sclerosis Rheumatoid arthritis Surgical History H/O shoulder surgery Family History Family/Other Multiple sclerosis Father Cancer Social History household members: spouse Smoking Status: Former smoker Smoking Status: Former smoker alcohol intake frequency: holidays/special occasions only Substance Use Type: does not use Exam Narrative Exam Narrative: GEN: AOx3 and in obvious distress, complaining of pain in her low back EYES: Pupils are equal, round, and reactive to light and accommodation. Extraoccular muscles are intact bilaterally. There is no subconjunctival hemorrhage or exudate. CHEST: Lungs are clear to auscultation bilaterally and free of wheezes, rales, or rhonchi. Heart rate is regular rhythm, there are no murmurs, clicks, rubs, or gallops. There is no chest wall tenderness. ABD: Abdomen is soft and nontender. There is no guarding or rebound. Bowel sounds are normal in all 4 quadrants. There is no mass or organomegaly. BACK: dehairing machine tender but free of any obvious external abnormalities. Patient exam notes decreased range of motion and muscle spasm, but no CVA tenderness, or vertebral point tenderness. There are no symptoms of cauda equina such as saddle anesthesia, and decreased reflexes, decreased sensation or strength. EXT: Full painless ROM of all extremities with no loss of sensation or strength. SKIN: Warm, pink, and dry. No erythema or rash Initial Vital Signs Initial Vital Signs: Vital Signs Temperature 98.5 F 06/14/23 08:09 Pulse Rate 117 H 06/14/23 08:09 Respiratory Rate 18 06/14/23 08:09 Blood Pressure 144/101 H 06/14/23 08:09 Pulse Oximetry 97 06/14/23 08:09 Oxygen Delivery Method Room Air 06/14/23 08:09 Course Orders Ordered: Discontinued Medications Dexamethasone (Dexamethasone 10 Mg/Ml Vial) 10 mg PO NOW ONE Stop: 06/14/23 08:21 Last Admin: 06/14/23 08:30 Dose: 10 mg Documented By: LORETTA Hydromorphone HCl (Hydromorphone 1 Mg Inj) 1 mg IM NOW ONE Stop: 06/14/23 08:21 Last Admin: 06/14/23 08:30 Dose: 1 mg Documented By: LORETTA Ketorolac Tromethamine (Ketorolac 30 Mg/Ml Vial) 30 mg IM NOW ONE Stop: 06/14/23 08:21 Last Admin: 06/14/23 08:30 Dose: 30 mg Documented By: LORETTA Lidocaine (Lidocaine Patch 1 Each Adh..Patch) 1 each TOP NOW ONE Stop: 06/14/23 08:21 Last Admin: 06/14/23 08:31 Dose: 1 each Documented By: LORETTA Vital Signs Vital signs: Vital Signs - 8 hr 06/14/23 08:09 Temperature 98.5 F Pulse Rate 117 H Respiratory Rate 18 Blood Pressure 144/101 H Pulse Oximetry 97 Oxygen Delivery Method Room Air MDM - Back Pain/Injury MDM Narrative Medical decision making narrative: [52] year old patient presents with severe low back pain and known radiculopathy with recent MRI Multiple etiologies for patient's symptoms considered including, but not limited to: [Cauda equina versus epidural abscess versus hematoma versus central canal stenosis versus other Prior Charts reviewed in our EMR Primary Historian: patient Imaging reviewed: From Friday Patient's history and physical exam are reassuring and there is no evidence of spinal cord involvement or cauda equina. No measurable weakness, saddle anesthesia, no loss of bowel or bladder control. Patient's symptoms improved over duration of stay with above-stated therapies. Findings and discharge diagnosis discussed with patient/family followed by verbalization of understanding Return precautions discussed with patient/family whom verbalize understanding of diagnosis and plan Discharge Plan Departure Patient Disposition: Home Clinical Impression: Chronic lumbar radiculopathy Activity Restrictions/Additional Instructions: *You have been diagnosed with [lumbar radiculopathy] *What to do: *Please continue to take your regular medications as directed. *Please continue to pursue your referral with the orthopedic office *Return to Emergency Department if you should have any new, worsening or concerning symptoms, such as [fever greater than 101 F, shaking chills, leg weakness, loss of control of bowel or bladder, persistent vomiting or other bothersome symptoms] Prescriptions: No Action cholecalciferol (vitamin D3) [Vitamin D3] 1,000 UNIT tablet 3,000 iu PO DAILY Qty: 0 acetaminophen [Tylenol Extra Strength] 500 MG tablet 1,000 mg PO Q6HP Qty: 0 MULTIVITAMIN (#MULTIPLE VITAMINS) 1 cap PO QDAY Qty: 0 citalopram [Celexa] 20 MG tablet 20 mg PO QDAY Qty: 0 cetirizine 10 MG tablet 10 mg PO QDAY Qty: 0 Glucosamine Sulfate (#GLUCOSAMINE) capsule 3,000 mg PO DAILY Qty: 0 gabapentin [Neurontin] 300 MG capsule 900 mg PO HS Qty: 0 calcium citrate 200 MG tablet 2,000 mg PO BID Qty: 0 magnesium oxide 400 MG capsule 400 mg PO QDAY Qty: 0 pantoprazole 40 MG tablet,delayed release (DR/EC) 40 mg PO 0600 Qty: 60 0RF duloxetine [Cymbalta] 60 MG capsule,delayed release(DR/EC) 60 mg PO QDAY Qty: 0 lidocaine 5 % ointment 1 applic topical BID PRN (Reason: pain) Qty: 50 0RF oxycodone 10 mg tablet 10 mg PO BID PRN (Reason: pain) Qty: 10 0RF cyclobenzaprine 10 mg tablet 10 mg PO TID PRN (Reason: muscle spasm) Qty: 30 0RF oxycodone 5 mg tablet 5 mg PO Q4-6H PRN (Reason: pain, severe) Qty: 12 0RF prednisone 10 mg tablet 10 mg PO DAILY Qty: 30 0RF Rx Instructions: day 1-3: 40 mg once a day day 4-6: 30 mg once a day day 7-9: 20 mg once a day day 10-12: 10 mg once a day diazepam [Valium] 5 mg tablet 5 mg PO Q12HR PRN (Reason: muscle spasm) Qty: 10 0RF oxycodone 5 mg capsule 5 mg PO BID PRN (Reason: pain) Qty: 10 0RF Referrals: Sujatha Curiel PA-C [Primary Care Provider] - Stand Alone Forms: Patient Portal/API
[2023-06-14] MEDS: DEXAMETHASONE 10 MG/ML VIAL PO (08:30)
[2023-06-14] MEDS: HYDROMORPHONE 1 MG INJ IM (08:30)
[2023-06-14] MEDS: KETOROLAC 30 MG/ML VIAL IM (08:30)
[2023-06-14] MEDS: LIDOCAINE PATCH 1 EACH ADH..PATCH TOP (08:31)
[2023-06-14 09:15] VITALS: BP 156/77; PULSE 99; RESP 16; TEMP 37; O2SAT 100
[2023-06-14 09:20] VITALS: BP 156/77; PULSE 99; RESP 16; TEMP 37; O2SAT 100
== END 2023-06-14 09:22 | disposition home or self-care (01) ==
PROVIDERS: Emergency Provider Emergency Medicine; PCP Physician Assistant Medical
DX: M54.16 Radiculopathy, lumbar region (principal)
CPT/HCPCS: 96372; 99283; J1100; J1170; J1885

== ENCOUNTER 2023-06-16 17:07 | Emergency (ER) | payer OTHER, SELFPAY ==
[2021-09-02 12:59] VITALS: BMI 36.3
[2023-06-16 17:22] VITALS: BP 197/114; PULSE 110; RESP 20; TEMP 36.9; O2SAT 97; BMI 36.9
[2023-06-16 18:31] VITALS: BP 168/99; PULSE 110; RESP 18; O2SAT 99
--- NOTE | 2023-06-16 19:42 | ED_ITS ---
HPI - Back Pain/Injury General Chief Complaint: Back Pain/Injury Stated Complaint: lower back pain Time Seen by Provider: 06/16/23 18:10 History of Present Illness HPI Narrative: 52-year-old woman with a history of multiple sclerosis, rheumatoid arthritis, osteoarthritis and recently diagnosed spinal stenosis presents complaining of lumbar radicular pain was seen in the emergency department on June 14 for the same. She had an MRI last week that showed central canal stenosis and has an appointment to see Orthopedic surgery in 3 days. She was having severe pain on the and was treated with IM Toradol and Dilaudid and discharged home. Home pain medications include oxycodone she is been using 5 mg every 3-4 hours which has not been effective, lidocaine patches which has been somewhat effective, she is on maximum dosing of gabapentin. For her rheumatoid arthritis it she has Q 4 month infusions of Rituxan and is due for another infusion mid June. She reports no fevers, cough, chills. There is no redness warmth or fluctuation over the area of tenderness over the lumbar spine. She has no new neurologic complaints but does note that the pain to the dorsum of the left foot continues to worsen. She is having trouble sitting secondary to pain. She is most comf ortable lying prone. Related Data Home Medications Medication Instructions Recorded Confirmed Glucosamine Sulfate (#GLUCOSAMINE) 3,000 mg PO DAILY ##0 08/10/12 09/02/21 MULTIVITAMIN (#MULTIPLE VITAMINS) 1 cap PO QDAY ##0 08/10/12 09/02/21 cetirizine 10 mg tablet 10 mg PO QDAY ##0 08/10/12 09/02/21 cholecalciferol (vitamin D3) 25 3,000 iu PO DAILY ##0 08/10/12 09/02/21 mcg (1,000 unit) tablet (Vitamin D3) citalopram 20 mg tablet (Celexa) 20 mg PO QDAY ##0 08/10/12 09/02/21 gabapentin 300 mg capsule 900 mg PO HS ##0 08/25/12 09/02/21 (Neurontin) calcium citrate 200 mg (950 mg) 2,000 mg PO BID ##0 10/08/16 09/02/21 tablet magnesium oxide 400 mg PO QDAY ##0 10/08/16 09/02/21 duloxetine 60 mg capsule,delayed 60 mg PO QDAY ##0 06/20/17 09/02/21 release (Cymbalta) amitriptyline 10 mg tablet mg PO 06/16/23 baclofen 20 mg tablet 20 mg PO DAILY 06/16/23 06/16/23 gabapentin 600 mg tablet 1,200 mg PO 3XD neuropathic pain 06/16/23 06/16/23 lidocaine 5 % topical patch patch topical 06/16/23 Previous Rx's Medication Instructions Recorded pantoprazole 40 mg tablet,delayed 40 mg PO 0600 ##60 10/23/16 release lidocaine 5 % topical ointment 1 applic topical BID PRN pain #50 01/11/22 grams oxycodone 10 mg tablet 10 mg PO BID PRN pain #10 tabs 01/11/22 prednisone 10 mg tablet 10 mg PO DAILY #30 tabs 05/10/23 oxycodone 5 mg capsule 5 mg PO BID PRN pain #10 caps 05/25/23 oxycodone 5 mg tablet 5 mg PO Q4-6H PRN pain, severe #12 06/11/23 tabs dexamethasone 4 mg tablet 10 mg PO DAILY #5 tabs 06/16/23 naproxen 500 mg tablet 500 mg PO BID #60 tabs 06/16/23 Allergies Allergy/AdvReac Type Severity Reaction Status Date / Time adhesive Allergy Severe BLISTER, Verified 06/14/23 08:14 SKIN COMES OFF capsaicin [CAPSAICIN] Allergy Severe ANAPHYLAXIS Verified 06/14/23 08:14 shellfish derived Allergy Severe ANAPHYLAXIS Verified 06/14/23 08:14 [SHELLFISH DERIVED] latex [LATEX] Allergy Intermediate BLISTER, Verified 06/14/23 08:14 HIVES acetaminophen [From PERCOCET] AdvReac Intermediate HIVES Verified 06/14/23 08:14 Review of Systems Review of Systems Narrative: Pertinent positive and negative findings as per HPI Patient History Medical History (Updated 06/16/23 @ 21:27 by Lore Roger MD) Depression Fibromyalgia Low back pain Multiple sclerosis Rheumatoid arthritis Surgical History H/O shoulder surgery Family History Family/Other Multiple sclerosis Father Cancer Social History household members: spouse Smoking Status: Former smoker Smoking Status: Former smoker alcohol intake frequency: holidays/special occasions only Substance Use Type: does not use Exam Initial Vital Signs Initial Vital Signs: Vital Signs Temperature 98.4 F 06/16/23 17:22 Pulse Rate 110 H 06/16/23 17:22 Respiratory Rate 20 06/16/23 17:22 Blood Pressure 197/114 H 06/16/23 17:22 Pulse Oximetry 97 06/16/23 17:22 Oxygen Delivery Method Room Air 06/16/23 17:22 General: Alert appropriate, in significant pain, lying prone Respiratory: Able to speak in full sentences, no obvious respiratory distress Skin: No obvious rashes, warm and dry Neurologic: Grossly intact no obvious asymmetries or abnormalities. Pain with movement of her left leg. Decreased sensation over the dorsum of the left foot. Vascularly intact Psych: appropriate insight and affect, cooperative Course Orders Ordered: Discontinued Medications Hydromorphone HCl (Hydromorphone 1 Mg Inj) 1 mg IM NOW ONE Stop: 06/16/23 19:43 Last Admin: 06/16/23 19:50 Dose: 1 mg Documented By: SARAI Ketorolac Tromethamine (Ketorolac 30 Mg/Ml Vial) 30 mg IM NOW ONE Stop: 06/16/23 19:43 Last Admin: 06/16/23 19:48 Dose: 30 mg Documented By: SARAI Vital Signs Vital signs: Vital Signs - 8 hr 06/16/23 17:22 06/16/23 18:31 06/16/23 20:11 Temperature 98.4 F Pulse Rate 110 H 110 H 103 H Respiratory Rate 20 18 20 Blood Pressure 197/114 H 168/99 H 165/97 H Pulse Oximetry 97 99 98 Oxygen Delivery Method Room Air Room Air MDM - Back Pain/Injury Lab Data Labs: Urine Dip Bedside Urine Glucose Negative Bedside Urine Bilirubin - Negative Bedside Urine Ketone - Negative Urine Specific [place] 1.000 Bedside Urine Occult Blood - Negative Bedside Urine pH 8.0 Bedside Urine Protein - Negative Bedside Urine Urobilinogen - Negative Bedside Urine Nitrite - Negative Bedside Urine Leukocytes - Negative Esterase MDM Narrative Medical decision making narrative: CC: Radicular low back pain secondary to spinal stenosis diagnosed by MRI with orthopedic follow-up coming up in 3 days complicated by multiple sclerosis and rheumatoid arthritis Data collected from: patient, Medical records reviewed: ERnotes for same issue from June 14 reviewed Differential considered: Acute exacerbation of her known spinal stenosis, epidural abscess, rheumatoid arthritis flare Exam documented above, pertinent findings include: Tenderness along the lumbar spine on the left side, pain with decreased sensation along the dorsum of the left foot Treatments: IM Toradol, IM Dilaudid, p.o. oxycodone Re-evaluations: Patient is feeling better after the IM injections Discussion: 52-year-old woman with chronic back pain multiple issues recent MRI so infection/epidural abscess or far less likely with acute exacerbation. In looking through prior medication record she is been on steroids has tried multiple narcotics multiple nonsteroidals multiple muscle relaxants none of which have been very effective. At this point she is using oxycodone and gabapentin. She notes that Tylenol does make her itchy. She finds that hydrocodone is actually more effective than oxycodone however she has to have the hydrocodone/ibuprofen combination which is apparently extraordinarily expensive with a greater than 200 dollar co-pay. She currently has plenty of oxycodone available at home. She has lidocaine patches and is on maximum doses of gabapentin. At this point will add dexamethasone this evening and 2 additional days of 10 mg of dexamethasone. When she stops the dexamethasone she is no longer on any of the other nonsteroidals (ibuprofen, meloxicam, indomethacin) will ask her to add naproxen b.i.d. and suggested that she increase her oxycodone from 5 mg every 3-4 hours to 10 mg every 6 hours. Encouraged her to keep her appointment with the orthopedic surgeon/spinal surgeon on of this week and return if symptoms worsen. She is safe for discharge Discharge Plan Departure Patient Disposition: Home Clinical Impression: Spinal stenosis Qualifiers: Spinal region: lumbar Neurogenic claudication status: with neurogenic claudication Qualified Code(s): M48.062 - Spinal stenosis, lumbar region with neurogenic claudication Activity Restrictions/Additional Instructions: I am sorry that you are continuing to suffer with this back pain And looking through your records it does look like you have been on multiple types of nonsteroidals, steroids, muscle relaxants and none of them seem to be all that effective. In the emergency room you were given 10 mg of dexamethasone and I am going to suggest an additional 10 mg on Friday and Friday, a prescription has been transmitted to [facility] in [place] for you. Once you are done with the dexamethasone I am going to have you try naproxen 500 mg(this is the prescription version of Aleve) a.m. and p.m.. Do not mix this with ibuprofen, meloxicam, Motrin, Aleve, indomethacin or any other nonsteroidal medications. Do continue to use a lidocaine patches up by your lumbar spine, even though your foot is hurting the source of the pain is actually the nerves by your spine. Please continue your high-dose gabapentin and I would suggest increasing your oxycodone from 1 pill every 3-4 hours to 2 pills every 6 hours to see if this is more effective for overall pain control. Do make sure you keep your orthopedic appointment this If you find that you are getting worse or develop any new symptoms, please feel free to return to the emergency department for further evaluation. Prescriptions: New dexamethasone 4 mg tablet 10 mg PO DAILY Qty: 5 0RF naproxen 500 mg tablet 500 mg PO BID Qty: 60 0RF No Action cholecalciferol (vitamin D3) [Vitamin D3] 1,000 UNIT tablet 3,000 iu PO DAILY Qty: 0 MULTIVITAMIN (#MULTIPLE VITAMINS) 1 cap PO QDAY Qty: 0 citalopram [Celexa] 20 MG tablet 20 mg PO QDAY Qty: 0 cetirizine 10 MG tablet 10 mg PO QDAY Qty: 0 Glucosamine Sulfate (#GLUCOSAMINE) capsule 3,000 mg PO DAILY Qty: 0 gabapentin [Neurontin] 300 MG capsule 900 mg PO HS Qty: 0 calcium citrate 200 MG tablet 2,000 mg PO BID Qty: 0 magnesium oxide 400 MG capsule 400 mg PO QDAY Qty: 0 pantoprazole 40 MG tablet,delayed release (DR/EC) 40 mg PO 0600 Qty: 60 0RF duloxetine [Cymbalta] 60 MG capsule,delayed release(DR/EC) 60 mg PO QDAY Qty: 0 lidocaine 5 % ointment 1 applic topical BID PRN (Reason: pain) Qty: 50 0RF oxycodone 10 mg tablet 10 mg PO BID PRN (Reason: pain) Qty: 10 0RF oxycodone 5 mg tablet 5 mg PO Q4-6H PRN (Reason: pain, severe) Qty: 12 0RF prednisone 10 mg tablet 10 mg PO DAILY Qty: 30 0RF Rx Instructions: day 1-3: 40 mg once a day day 4-6: 30 mg once a day day 7-9: 20 mg once a day day 10-12: 10 mg once a day oxycodone 5 mg capsule 5 mg PO BID PRN (Reason: pain) Qty: 10 0RF amitriptyline 10 mg tablet PO gabapentin 600 mg tablet 1,200 mg PO 3XD baclofen 20 mg tablet 20 mg PO DAILY lidocaine 5 % adhesive patch,medicated topical Referrals: Sujatha Curiel PA-C [Non-Staff] - Stand Alone Forms: Patient Portal/API
[2023-06-16] MEDS: KETOROLAC 30 MG/ML VIAL IM (19:48)
[2023-06-16] MEDS: HYDROMORPHONE 1 MG INJ IM (19:50)
[2023-06-16 20:11] VITALS: BP 165/97; PULSE 103; RESP 20; O2SAT 98
[2023-06-16] MEDS: OXYCODONE IR 5 MG TABLET 10 MG PO (21:17)
[2023-06-16 21:19] VITALS: BP 169/101; PULSE 95; RESP 20; O2SAT 97
[2023-06-16] MEDS: DEXAMETHASONE 10 MG/ML VIAL PO (21:40)
== END 2023-06-16 21:47 | disposition home or self-care (01) ==
PROVIDERS: Emergency Provider Emergency Medicine; PCP Internal Medicine
DX: M48.062 Spinal stenosis, lumbar region with neurogenic claudication (principal)
CPT/HCPCS: 81003; 96372; 99283; J1100; J1170; J1885

== ENCOUNTER 2023-06-27 12:48 | Emergency (ER) | payer OTHER, SELFPAY ==
[2021-09-02 12:59] VITALS: BMI 36.3
[2023-06-27 13:01] VITALS: BP 161/99; PULSE 115; RESP 20; TEMP 36.9; O2SAT 99; BMI 36.7
--- NOTE | 2023-06-27 13:25 | PC.NURSE ---
patient has history of back problems with pain, is on medications at home. had PT on friday and the next day had extreme back pain. PT saw pt this morning and states they might have caused a flare up. recommended to go to ER for break through pain relief. pt states pain is very spasm like. rads from low back to neck and back down to low back
[2023-06-27] MEDS: HYDROMORPHONE 2 MG INJ SUBCUT (14:08)
[2023-06-27] MEDS: ONDANSETRON 4 MG ODT SL (14:08)
--- NOTE | 2023-06-27 14:34 | ED_ITS ---
HPI - Back Pain/Injury General Chief Complaint: Back Pain/Injury Stated Complaint: lower back pain Time Seen by Provider: 06/27/23 13:58 Source: patient History of Present Illness HPI Narrative: Patient here for acute on chronic back pain. Patient has seen Dr. Chaves with ortho spine at [facility] and is waiting for insurance clearance for laminectomy. Patient seen here many times for chronic back pain. Was recently last month had MRI of the lumbar spine here. She is not had any fall injury or illness or fever since seeing us here. She states the oxycodone she is on at home seems to be less effective with time. No other complaints. No new limb numbness tingling or weakness. No saddle paresthesia. No bowel or bladder incontinence or retention.. Patient seen here June 11, 2023 for back pain and MRI of the lumbar spine. Please see chart for details. Related Data Home Medications Medication Instructions Recorded Confirmed Glucosamine Sulfate (#GLUCOSAMINE) 3,000 mg PO DAILY ##0 08/10/12 09/02/21 MULTIVITAMIN (#MULTIPLE VITAMINS) 1 cap PO QDAY ##0 08/10/12 09/02/21 cetirizine 10 mg tablet 10 mg PO QDAY ##0 08/10/12 09/02/21 cholecalciferol (vitamin D3) 25 3,000 iu PO DAILY ##0 08/10/12 09/02/21 mcg (1,000 unit) tablet (Vitamin D3) citalopram 20 mg tablet (Celexa) 20 mg PO QDAY ##0 08/10/12 09/02/21 gabapentin 300 mg capsule 900 mg PO HS ##0 08/25/12 09/02/21 (Neurontin) calcium citrate 200 mg (950 mg) 2,000 mg PO BID ##0 10/08/16 09/02/21 tablet magnesium oxide 400 mg PO QDAY ##0 10/08/16 09/02/21 duloxetine 60 mg capsule,delayed 60 mg PO QDAY ##0 06/20/17 09/02/21 release (Cymbalta) amitriptyline 10 mg tablet mg PO 06/16/23 baclofen 20 mg tablet 20 mg PO DAILY 06/16/23 06/16/23 gabapentin 600 mg tablet 1,200 mg PO 3XD neuropathic pain 06/16/23 06/16/23 lidocaine 5 % topical patch patch topical 06/16/23 Previous Rx's Medication Instructions Recorded pantoprazole 40 mg tablet,delayed 40 mg PO 0600 ##60 10/23/16 release lidocaine 5 % topical ointment 1 applic topical BID PRN pain #50 01/11/22 grams oxycodone 10 mg tablet 10 mg PO BID PRN pain #10 tabs 01/11/22 oxycodone 5 mg tablet 5 mg PO Q4-6H PRN pain, severe #12 06/11/23 tabs naproxen 500 mg tablet 500 mg PO BID #60 tabs 06/16/23 methylprednisolone 4 mg tablets in See Rx Instructions PO .COMPLEX 06/29/23 a dose pack (Medrol (Sabino)) #21 ea Allergies Allergy/AdvReac Type Severity Reaction Status Date / Time adhesive Allergy Severe BLISTER, Verified 06/27/23 13:01 SKIN COMES OFF capsaicin [CAPSAICIN] Allergy Severe ANAPHYLAXIS Verified 06/27/23 13:01 shellfish derived Allergy Severe ANAPHYLAXIS Verified 06/27/23 13:01 [SHELLFISH DERIVED] latex [LATEX] Allergy Intermediate BLISTER, Verified 06/27/23 13:01 HIVES tizanidine AdvReac Severe Hives Verified 06/27/23 13:06 Review of Systems Review of Systems Narrative: GENERAL: negative chills, fatigue, malaise, fever, sweats. HEENT: negative sinus pain, ear pain, sore throat RESPIRATORY: negative dyspnea, cough CARDIOVASCULAR: negative chest pain, palpitations GASTROINTESTINAL: negative nausea, vomiting, abdominal pain : negative dysuria, frequency, hematuria MUSCULOSKELETAL: negative muscle or bony pain, positive back pain SKIN: negative rash, skin lesions NEUROLOGIC: negative new weakness, numbness ROS Unobtainable: All systems reviewed & are unremarkable except as noted in HPI and below Patient History Medical History Depression Fibromyalgia Low back pain Multiple sclerosis Rheumatoid arthritis Surgical History H/O shoulder surgery Family History Family/Other Multiple sclerosis Father Cancer Social History household members: spouse Smoking Status: Former smoker Smoking Status: Former smoker alcohol intake frequency: holidays/special occasions only Substance Use Type: does not use Exam Narrative Exam Narrative: GENERAL: in no distress, not toxic not dyspneic HEAD: Normocephalic. EYES: Pupils equal round ENT: Mucous membranes moist. NECK: Trachea midline. CARDIOVASCULAR: Regular rate and rhythm RESPIRATORY: Clear to auscultation. Breath sounds equal bilaterally. No wheezes, rales, or rhonchi. GASTROINTESTINAL: Abdomen soft, non-tender EXTREMITIES: No gross deformities. BACK: No flank tenderness. No midline tenderness or step-off. Patient able to turn from lying pronate on her stomach to supine on her back. Able to flex extend at the hip and knees fully. Strong bilateral patellar reflexes as well as ankle flexion and extension. Light touch intact to feet and toes. There is mild muscle spasm to bilateral paralumbar muscles. No pain with bilateral straight leg raises at this time. NEURO: AOx4. SKIN: Warm and dry PSYCH: Not anxious, is cooperative Initial Vital Signs Initial Vital Signs: Vital Signs Temperature 98.4 F 06/27/23 13:01 Pulse Rate 115 H 06/27/23 13:01 Respiratory Rate 20 06/27/23 13:01 Blood Pressure 161/99 H 06/27/23 13:01 Pulse Oximetry 99 06/27/23 13:01 Oxygen Delivery Method Room Air 06/27/23 13:01 Course Orders Ordered: Discontinued Medications Hydromorphone HCl (Hydromorphone 2 Mg Inj) 2 mg SUBCUT NOW ONE Stop: 06/27/23 14:03 Last Admin: 06/27/23 14:08 Dose: 2 mg Documented By: NL Ondansetron HCl (Ondansetron 4 Mg Odt) 4 mg SL NOW ONE Stop: 06/27/23 14:03 Last Admin: 06/27/23 14:08 Dose: 4 mg Documented By: NL Vital Signs Vital signs: Vital Signs - 8 hr 06/27/23 13:01 Temperature 98.4 F Pulse Rate 115 H Respiratory Rate 20 Blood Pressure 161/99 H Pulse Oximetry 99 Oxygen Delivery Method Room Air MDM - Back Pain/Injury MDM Narrative Medical decision making narrative: Patient here for acute on chronic back pain. Patient has seen Dr. Chaves with ortho spine at [facility] and is waiting for insurance clearance for laminectomy. Patient seen here many times for chronic back pain. Was recently last month had MRI of the lumbar spine here. She is not had any fall injury or illness or fever since seeing us here. She states the oxycodone she is on at home seems to be less effective with time. No other complaints. No new limb numbness tingling or weakness. No saddle paresthesia. No bowel or bladder incontinence or retention.. Patient seen here June 11, 2023 for back pain and MRI of the lumbar spine. Please see chart for details. After history and exam Dilaudid Zofran, no new imaging indicated. Patient just had imaging done last month MRI lumbar spine. No laboratory studies indicated. No recent illness. Patient here for flare-up of chronic back pain due to recent physical therapy she had this past Friday. MDM CC: Low back pain Complicating co-morbidities: Chronic back pain Data collected from: Patient and Medical records reviewed: ER visit MRI June 11, 2023 here Differential considered: Includes but not limited to cauda equina acute on chronic pain lumbar radiculopathy Exam documented above, pertinent findings include: Tender lumbar muscles Treatments: Dilaudid Zofran Re-evaluations: 2:46 p.m.. Patient feeling much better after Dilaudid. Had breakthrough pain, requiring Dilaudid. Patient and agreed no new studies indicated. Return precautions reviewed. They desire discharge home Discussion: Appropriate for discharge home. No new neuro deficits. Patient had acute on chronic back pain due to recent physical therapist past Friday. No significant neuro deficits. Return precautions reviewed with them. They desire discharge home Diagnosis: Acute on chronic back pain Discharge Plan Departure Patient Disposition: Home Clinical Impression: Chronic back pain Instructions: Managing Chronic Low Back Pain, DI for Low Back Pain Activity Restrictions/Additional Instructions: Return if worse if any questions or concerns. No driving operating machinery today or when taking prescribed pain medication. See your ortho spine surgeon as scheduled for your spine surgery. Return if worse if any questions or concerns Prescriptions: No Action cholecalciferol (vitamin D3) [Vitamin D3] 1,000 UNIT tablet 3,000 iu PO DAILY Qty: 0 MULTIVITAMIN (#MULTIPLE VITAMINS) 1 cap PO QDAY Qty: 0 citalopram [Celexa] 20 MG tablet 20 mg PO QDAY Qty: 0 cetirizine 10 MG tablet 10 mg PO QDAY Qty: 0 Glucosamine Sulfate (#GLUCOSAMINE) capsule 3,000 mg PO DAILY Qty: 0 gabapentin [Neurontin] 300 MG capsule 900 mg PO HS Qty: 0 calcium citrate 200 MG tablet 2,000 mg PO BID Qty: 0 magnesium oxide 400 MG capsule 400 mg PO QDAY Qty: 0 pantoprazole 40 MG tablet,delayed release (DR/EC) 40 mg PO 0600 Qty: 60 0RF duloxetine [Cymbalta] 60 MG capsule,delayed release(DR/EC) 60 mg PO QDAY Qty: 0 lidocaine 5 % ointment 1 applic topical BID PRN (Reason: pain) Qty: 50 0RF oxycodone 10 mg tablet 10 mg PO BID PRN (Reason: pain) Qty: 10 0RF oxycodone 5 mg tablet 5 mg PO Q4-6H PRN (Reason: pain, severe) Qty: 12 0RF methylprednisolone [Medrol (Sabino)] 4 mg tablets,dose pack See Rx Instructions .ROUTE .COMPLEX Qty: 21 0RF Rx Instructions: orally per package directions amitriptyline 10 mg tablet PO gabapentin 600 mg tablet 1,200 mg PO 3XD baclofen 20 mg tablet 20 mg PO DAILY lidocaine 5 % adhesive patch,medicated topical naproxen 500 mg tablet 500 mg PO BID Qty: 60 0RF Referrals: Charlie Mooney MD [Primary Care Provider] - Stand Alone Forms: Patient Portal/API
[2023-06-27 14:47] VITALS: BP 170/99; PULSE 96; RESP 16; O2SAT 99
== END 2023-06-27 14:49 | disposition home or self-care (01) ==
PROVIDERS: Emergency Provider Emergency Medicine; PCP Internal Medicine
DX: M54.50 Low back pain, unspecified (principal)
CPT/HCPCS: 96372; 99283; J1170

== ENCOUNTER 2023-06-29 14:02 | Emergency (ER) | payer OTHER, SELFPAY ==
[2021-09-02 12:59] VITALS: BMI 36.3
[2023-06-29 14:08] VITALS: BP 119/88; PULSE 115; RESP 22; TEMP 37; O2SAT 98; BMI 36.1
--- NOTE | 2023-06-29 14:20 | ED_ITS ---
HPI - Back Pain/Injury <Sebastian Leblanc PA-C - Last Filed: 06/29/23 14:40> General Chief Complaint: Back Pain/Injury Stated Complaint: lower back pain Time Seen by Provider: 06/29/23 14:14 Source: patient History of Present Illness HPI Narrative: This is a 52-year-old female presents emergency department due to acute on chronic lower back pain. Has a surgery scheduled for 08/19, approximately a month and a half from from now. Patient states that all she needs is a ?shot of Toradol some Dilaudid?. She has a appointment with the primary care provider in 2 days to discuss further long-term pain management. Denies any new symptoms. No saddle paresthesias, urinary bowel incontinence, or any other concerning signs or symptoms. Related Data Home Medications Medication Instructions Recorded Confirmed Glucosamine Sulfate (#GLUCOSAMINE) 3,000 mg PO DAILY ##0 08/10/12 09/02/21 MULTIVITAMIN (#MULTIPLE VITAMINS) 1 cap PO QDAY ##0 08/10/12 09/02/21 cetirizine 10 mg tablet 10 mg PO QDAY ##0 08/10/12 09/02/21 cholecalciferol (vitamin D3) 25 3,000 iu PO DAILY ##0 08/10/12 09/02/21 mcg (1,000 unit) tablet (Vitamin D3) citalopram 20 mg tablet (Celexa) 20 mg PO QDAY ##0 08/10/12 09/02/21 gabapentin 300 mg capsule 900 mg PO HS ##0 08/25/12 09/02/21 (Neurontin) calcium citrate 200 mg (950 mg) 2,000 mg PO BID ##0 10/08/16 09/02/21 tablet magnesium oxide 400 mg PO QDAY ##0 10/08/16 09/02/21 duloxetine 60 mg capsule,delayed 60 mg PO QDAY ##0 06/20/17 09/02/21 release (Cymbalta) amitriptyline 10 mg tablet mg PO 06/16/23 baclofen 20 mg tablet 20 mg PO DAILY 06/16/23 06/16/23 gabapentin 600 mg tablet 1,200 mg PO 3XD neuropathic pain 06/16/23 06/16/23 lidocaine 5 % topical patch patch topical 06/16/23 Previous Rx's Medication Instructions Recorded pantoprazole 40 mg tablet,delayed 40 mg PO 0600 ##60 10/23/16 release lidocaine 5 % topical ointment 1 applic topical BID PRN pain #50 01/11/22 grams oxycodone 10 mg tablet 10 mg PO BID PRN pain #10 tabs 01/11/22 oxycodone 5 mg tablet 5 mg PO Q4-6H PRN pain, severe #12 06/11/23 tabs naproxen 500 mg tablet 500 mg PO BID #60 tabs 06/16/23 methylprednisolone 4 mg tablets in See Rx Instructions PO .COMPLEX 06/29/23 a dose pack (Medrol (Sabino)) #21 ea Allergies Allergy/AdvReac Type Severity Reaction Status Date / Time adhesive Allergy Severe BLISTER, Verified 06/27/23 13:01 SKIN COMES OFF capsaicin [CAPSAICIN] Allergy Severe ANAPHYLAXIS Verified 06/27/23 13:01 shellfish derived Allergy Severe ANAPHYLAXIS Verified 06/27/23 13:01 [SHELLFISH DERIVED] latex [LATEX] Allergy Intermediate BLISTER, Verified 06/27/23 13:01 HIVES tizanidine AdvReac Severe Hives Verified 06/27/23 13:06 Review of Systems <Sebastian Leblanc PA-C - Last Filed: 06/29/23 14:40> Review of Systems Narrative: GENERAL: Denies chills, fatigue, malaise, fever, sweats. HEENT: Denies sinus pain, ear pain, sore throat, difficulty swallowing, dizziness. RESPIRATORY: Denies dyspnea, cough, wheezing, hemoptysis, sputum. CARDIOVASCULAR: Denies chest pain, palpitations, orthopnea, edema, GASTROINTESTINAL: Denies nausea, vomiting, abdominal pain, diarrhea, constipation, melena. : Denies dysuria, frequency, incontinence, hematuria, urinary retention. MUSCULOSKELETAL: Reports back pain denies weakness, joint pain, or bony pain SKIN: Denies rash, skin lesions, or other NEUROLOGIC: Denies weakness, headache, numbness, change in speech, confusion, seizures, incoordination. PSYCHIATRIC: No concerning psychosocial issues. 12 point review of systems is negative except for those stated above Patient History <Sebastian Leblanc PA-C - Last Filed: 06/29/23 14:40> Medical History Depression Fibromyalgia Low back pain Multiple sclerosis Rheumatoid arthritis Surgical History H/O shoulder surgery Family History Family/Other Multiple sclerosis Father Cancer Social History household members: spouse Smoking Status: Former smoker Smoking Status: Former smoker alcohol intake frequency: holidays/special occasions only Substance Use Type: does not use Exam <Sebastian Leblanc PA-C - Last Filed: 06/29/23 14:40> Narrative Exam Narrative: GENERAL: Well-developed patient, in mild distress. HEAD: Atraumatic. Normocephalic. EYES: Pupils equal round and reactive. Extraocular motions intact. No scleral icterus. No injection or drainage. ENT: Nose without bleeding, purulent drainage. Throat without erythema, tonsillar hypertrophy or exudate. Airway patent. NECK: Trachea midline. Non tender CARDIOVASCULAR: Regular rate and rhythm without murmurs, gallops, or rubs. RESPIRATORY: Clear to auscultation. Breath sounds equal bilaterally. No wheezes, rales, or rhonchi. GASTROINTESTINAL: Abdomen soft, non-tender, nondistended. EXTREMITIES: No edema or joint tenderness. BACK: Tenderness to palpation bilateral lumbar paraspinal muscles, no midline tenderness NEURO: AOx3. SKIN: No rash or erythema of visible areas Initial Vital Signs Initial Vital Signs: Vital Signs Temperature 98.6 F 06/29/23 14:08 Pulse Rate 115 H 06/29/23 14:08 Respiratory Rate 06/29/23 14:08 Blood Pressure 119/88 06/29/23 14:08 Pulse Oximetry 98 06/29/23 14:08 Oxygen Delivery Method Room Air 06/29/23 14:08 <La Mas DO - Last Filed: 06/30/23 07:58> Initial Vital Signs Initial Vital Signs: Vital Signs Temperature 98.6 F 06/29/23 14:08 Pulse Rate 115 H 06/29/23 14:08 Respiratory Rate 06/29/23 14:08 Blood Pressure 119/88 06/29/23 14:08 Pulse Oximetry 98 06/29/23 14:08 Oxygen Delivery Method Room Air 06/29/23 14:08 Course <Sebastian Leblanc PA-C - Last Filed: 06/29/23 14:40> Orders Ordered: Discontinued Medications Hydromorphone HCl (Hydromorphone 2 Mg Tablet) 2 mg PO NOW ONE Stop: 06/29/23 14:33 Last Admin: 06/29/23 14:38 Dose: 2 mg Documented By: OLESYA Ketorolac Tromethamine (Ketorolac 30 Mg/Ml Vial) 15 mg IM NOW ONE Stop: 06/29/23 14:33 Last Admin: 06/29/23 14:39 Dose: 15 mg Documented By: SPF Vital Signs Vital signs: Vital Signs - 8 hr 06/29/23 14:08 Temperature 98.6 F Pulse Rate 115 H Respiratory Rate 22 Blood Pressure 119/88 Pulse Oximetry 98 Oxygen Delivery Method Room Air <La Mas DO - Last Filed: 06/30/23 07:58> Orders Ordered: Discontinued Medications Hydromorphone HCl (Hydromorphone 2 Mg Tablet) 2 mg PO NOW ONE Stop: 06/29/23 14:33 Last Admin: 06/29/23 14:38 Dose: 2 mg Documented By: SPF Ketorolac Tromethamine (Ketorolac 30 Mg/Ml Vial) 15 mg IM NOW ONE Stop: 06/29/23 14:33 Last Admin: 06/29/23 14:39 Dose: 15 mg Documented By: SPF Vital Signs Vital signs: Vital Signs - 8 hr 06/29/23 14:08 Temperature 98.6 F Pulse Rate 115 H Respiratory Rate 22 Blood Pressure 119/88 Pulse Oximetry 98 Oxygen Delivery Method Room Air MDM - Back Pain/Injury <Sebastian Leblanc PA-C - Last Filed: 06/29/23 14:40> MDM Narrative Medical decision making narrative: MDM * differential diagnosis includes but not limited to lumbosacral strain, acute on chronic lumbar pain, spinal cord compromise, vertebral fracture * Prior records reviewed: Patient has a history of chronic back pain. Last seen 2 days ago for acute on chronic back pain. Patient has been seen by Dr. Chaves of ortho spine and is waiting for insurance clearance for a laminectomy. Had a MRI of the lumbar spine here a month ago. History of fibromyalgia, MS, rheumatoid arthritis, low back pain. Patient was given Dilaudid and Zofran here in the emergency department. No concerning findings at this time. * My lab interpretation: None obtained * My imgaing interpretation: None obtained * Clinical Decision Rules/Scores evaluated: None * Independent discussions with: None ED Course: This is a 52-year-old female with a longstanding history of acute on chronic lower back pain. She she was seen in the ER 2 days ago for similar management. No new symptoms since then. No fluid flag symptoms. Patient will be given short course of pain control and she has a highly instructed to follow up with her primary care provider on Friday which is 2 days from now for long- term pain management. She does have surgery scheduled the end of next month. Shared Decision Making: Discussed plan with patient who is comfortable with the plan Social Considerations: None Disposition: Discharged to home Discharge Plan Departure Patient Disposition: Home Clinical Impression: Chronic low back pain Instructions: DI for Back Spasm Activity Restrictions/Additional Instructions: Thank you for coming to the [facility] Emergency Department today. I am glad that you have surgery scheduled next month. The pain medication given today should help until you are able follow up with the primary care provider on Friday. I strongly urge you to follow up with them or the walk-in clinic if similar episodes like this happen in the future. I hope you feel better soon. Please follow up with your primary care provider within a week if your symptoms continue. If you do not have a primary care provider please contact the [facility] Resource line at [phone]. They will ask some questions about your medical history and help you get set up with a provider in the community. Prescriptions: New methylprednisolone [Medrol (Sabino)] 4 mg tablets,dose pack See Rx Instructions .ROUTE .COMPLEX Qty: 21 0RF Rx Instructions: orally per package directions No Action cholecalciferol (vitamin D3) [Vitamin D3] 1,000 UNIT tablet 3,000 iu PO DAILY Qty: 0 MULTIVITAMIN (#MULTIPLE VITAMINS) 1 cap PO QDAY Qty: 0 citalopram [Celexa] 20 MG tablet 20 mg PO QDAY Qty: 0 cetirizine 10 MG tablet 10 mg PO QDAY Qty: 0 Glucosamine Sulfate (#GLUCOSAMINE) capsule 3,000 mg PO DAILY Qty: 0 gabapentin [Neurontin] 300 MG capsule 900 mg PO HS Qty: 0 calcium citrate 200 MG tablet 2,000 mg PO BID Qty: 0 magnesium oxide 400 MG capsule 400 mg PO QDAY Qty: 0 pantoprazole 40 MG tablet,delayed release (DR/EC) 40 mg PO 0600 Qty: 60 0RF duloxetine [Cymbalta] 60 MG capsule,delayed release(DR/EC) 60 mg PO QDAY Qty: 0 lidocaine 5 % ointment 1 applic topical BID PRN (Reason: pain) Qty: 50 0RF oxycodone 10 mg tablet 10 mg PO BID PRN (Reason: pain) Qty: 10 0RF oxycodone 5 mg tablet 5 mg PO Q4-6H PRN (Reason: pain, severe) Qty: 12 0RF amitriptyline 10 mg tablet PO gabapentin 600 mg tablet 1,200 mg PO 3XD baclofen 20 mg tablet 20 mg PO DAILY lidocaine 5 % adhesive patch,medicated topical naproxen 500 mg tablet 500 mg PO BID Qty: 60 0RF Referrals: Charlie Mooney MD [Primary Care Provider] - Stand Alone Forms: Patient Portal/API <La Mas DO - Last Filed: 06/30/23 07:58> Cosign ED Attending Cosmaxineature Attestation: I was immediately available in the department for consultation. Documentation has been reviewed.
[2023-06-29] MEDS: HYDROMORPHONE 2 MG TABLET PO (14:38)
[2023-06-29] MEDS: KETOROLAC 30 MG/ML VIAL 15 MG IM (14:39)
[2023-06-29 15:04] VITALS: BP 177/98; PULSE 97; RESP 18; O2SAT 97
== END 2023-06-29 15:04 | disposition home or self-care (01) ==
PROVIDERS: Emergency Provider Physician Assistant Medical; PCP Internal Medicine
DX: M54.50 Low back pain, unspecified (principal)
CPT/HCPCS: 96372; 99283; J1885

== ENCOUNTER → 2024-02-28 10:31 | Outpatient (CLI) | payer OTHER, SELFPAY ==
[2021-09-02 12:59] VITALS: BMI 36.3
--- NOTE | 2024-02-28 | DI.CT.S_ITS ---
PROCEDURE: CT HIP LEFT WITHOUT CON INDICATIONS: LEFT HIP PAIN TECHNIQUE: Noncontrast 3 mm axial sections acquired through the bony pelvis. Additional 3 mm axial sections acquired through the symptomatic hip joint, with coronal and sagittal reformats. COMPARISON: [facility], CR, XR PELVIS WITH LATERAL HIP LEFT, 02/19/2024, 13:54. FINDINGS: Image quality: Excellent. Bones: No acute fracture or dislocation. Mild femoroacetabular joint space narrowing bilaterally, symmetric. Grade 1 anterolisthesis approximately 4 mm with bilateral pars defects at L4 tiny hyperdense lesion in the posterior left L4 vertebral body compatible with a benign bone island. Minimal disc height loss at L4-L5. Soft tissues: Visualized small and large bowel is normal in caliber, without obstruction. Scattered pelvic phleboliths. Hysterectomy. IMPRESSION: 1. No acute fracture or dislocation. 2. Mild bilateral symmetric hip joint degeneration. 3. Grade 1 anterolisthesis of L4 on L5 of approximately 4 mm with bilateral L4 pars defects. Dictated by: Nasir Peterson M.D. on 02/29/2024 at 7:42 Approved by: Nasir Peterson M.D. on 02/29/2024 at 7:46
== END ==
PROVIDERS: PCP Nurse Practitioner Family; Referring Provider Orthopaedic Surgery; Visit Provider Orthopaedic Surgery
DX: M16.0 Bilateral primary osteoarthritis of hip (principal); M25.552 Pain in left hip; M76.00 Gluteal tendinitis, unspecified hip; M43.16 Spondylolisthesis, lumbar region
CPT/HCPCS: 73700

== ENCOUNTER 2024-03-03 13:44 | Outpatient (CLI) | payer OTHER, SELFPAY ==
[2021-09-02 12:59] VITALS: BMI 36.3
[2024-03-03 14:20] VITALS: BP 155/79; PULSE 74; RESP 16; TEMP 36.4; O2SAT 100
--- NOTE | 2024-03-03 14:30 | DI.RAD.S_ITS ---
PROCEDURE: PAIN SI JOINT INJECTION INDICATIONS: SI joint dysfunction COMPARISON: None. FINDINGS: Fluoroscopic spot filming was performed to verify placement of a spinal needle at the left sacroiliac joint, as labeled on the films. Appropriate location(s) of the needle tip(s) was confirmed by injection of iodinated contrast. IMPRESSION: Fluoroscopically guided left sacroiliac joint injection. Dictated by: Sonia Ruiz M.D. on 03/03/2024 at 16:46 Approved by: Sonia Ruiz M.D. on 03/03/2024 at 16:46
[2024-03-03 14:32] VITALS: BP 188/88; PULSE 76; RESP 16; O2SAT 100
[2024-03-03] MEDS: iopamidoL 15 ML VIAL 3 ML INJ (14:34)
[2024-03-03] MEDS: DEXAMETHASONE 10 MG/ML VIAL INJ (14:34)
[2024-03-03] MEDS: BUPIVACAINE 0.5% (PF) 10 ML VIAL 5 ML INJ (14:34)
--- NOTE | 2024-03-03 14:34 | PC.NURSE ---
Adhesive allergy Patient refused tegaderm on her R AC PIV. Patient refused heart monitor in procedure room. Dr. Martinez aware and patient agrees to no sedation so she doesn't have to have adhesive on her skin.
[2024-03-03 14:35] VITALS: BP 177/91; PULSE 79; RESP 20; O2SAT 100
[2024-03-03 14:39] VITALS: BP 177/96; PULSE 75; RESP 18; O2SAT 100
[2024-03-03 14:44] VITALS: BP 176/77; PULSE 71; RESP 20; O2SAT 100
[2024-03-03 14:49] VITALS: BP 162/75; PULSE 78; RESP 18; O2SAT 100
--- NOTE | 2024-03-03 16:50 | P.PCN_ITS ---
Date/Time/Diagnoses Date of procedure: 03/03/24 Time of procedure: 14:30 Procedure Notes Physician: Ayaz Martinez Total Fluoroscopy time (seconds): 13 Total sedation minutes: 0 Procedure in detail & Post-procedure care: Left Sacroiliac Joint Injection Indications: Herminia is presenting for treatment of SI joint dysfunction with low back/buttock pain. Preoperative diagnosis: Left SI joint dysfunction Postoperative diagnosis: Same Focused Examination: Ax3 Mood and affect are normal Vital Signs: VSS Consent: Following review of allergies and potential side effects/complications, including, but not necessarily limited to, infection, allergic reaction, local tissue breakdown, stroke, temporary or permanent nerve injury, paralysis, and possible , the patient indicated that they understood and agreed to proceed.? An informed consent document was signed by the patient, witnessed by a nurse and placed in the patient's chart.? Additionally, other treatment options including medications and physical therapy were reviewed with the patient. All questions were answered. Site was then marked. Anesthesia: Local Position: Prone Monitoring: NIBP, Pulse oximetry, 3 lead EKG Needle used: 22 ga, 3.5 inch spinal Contrast: 2 mL Isovue M-300 Injectate: Dexamethasone 7.5 mg with 1% lidocaine 2 mL Technique: The skin was prepped with chloraprep and then draped in a sterile fashion. Time out was performed as per protocol. Oxygen applied via NC. Skin and subcutaneous structures of the needle entry site was then infiltrated with 5 mL of lidocaine 1%. Under AP and lateral fluoroscopic control, the spinal needle was guided into the left sacroiliac joint. 1 mL contrast was injected and was consistent with intra-articular placement. There was no evidence for intravascular uptake. After negative aspiration, the above-mentioned injectate was then slowly administered and the needle withdrawn. The patient expressed no unusual discomfort or paresthesias during the injection. EBL: less than 1 ml Complications: None Post Procedure: Patient was taken to the recovery and monitored. The patient was provided a Pain Log to continue to record the patient's response to the target- specific procedure prior to the patient's follow-up visit with the referring physician. Patient was stable upon discharge. Detailed post procedure instructions were provided. Patient was asked to call in the event of worsening pain, fever, weakness, numbness or bladder or bowel incontinence.
== END 2024-03-03 14:51 | disposition home or self-care (01) ==
LOC: RAD 13:45
PROVIDERS: PCP Nurse Practitioner Family; Referring Provider Anesthesiology; Visit Provider Anesthesiology
DX: M53.3 Sacrococcygeal disorders, not elsewhere classified (principal)
CPT/HCPCS: 27096; 99152; J1100

== ENCOUNTER 2024-05-10 12:41 | Emergency (ER) | payer OTHER, SELFPAY ==
[2021-09-02 12:59] VITALS: BMI 36.3
[2024-05-10 13:09] VITALS: BP 165/85; PULSE 73; RESP 18; TEMP 36.9; O2SAT 100; BMI 34.7
--- NOTE | 2024-05-10 16:56 | ED_ITS ---
HPI - Animal Bite <Maged Green PA-C - Last Filed: 05/10/24 18:56> General Chief Complaint: Animal Bite Stated Complaint: animal bite, swelling two weeks ago Time Seen by Provider: 05/10/24 15:26 History of Present Illness HPI narrative: 53-year-old female with past medical history hypothyroidism, osteoarthritis, depression, fibromyalgia presents to the ED for right hand swelling and pain for 2 weeks. Patient was bitten by her dog who accidentally bit her on the right hand. Four days following the dog bite, patient started experiencing pain, swelling, redness at the site of the bite. Patient has noted that her symptoms are worsening and the area of redness and pain is spreading proximally and distally from the bite site. No fever, chills, chest pain, shortness of breath, nausea, vomiting. No numbness, tingling, weakness. Tetanus is up-to-date Related Data Home Medications Medication Instructions Recorded Confirmed MULTIVITAMIN (#MULTIPLE VITAMINS) 1 cap PO QDAY ##0 08/10/12 04/19/24 cholecalciferol (vitamin D3) 25 3,000 iu PO DAILY ##0 08/10/12 04/19/24 mcg (1,000 unit) tablet (Vitamin D3) calcium citrate 200 mg (950 mg) 2,000 mg PO BID ##0 10/08/16 04/19/24 tablet magnesium oxide 400 mg PO QDAY ##0 10/08/16 04/19/24 duloxetine 60 mg capsule,delayed 60 mg PO QDAY ##0 06/20/17 04/19/24 release (Cymbalta) baclofen 20 mg tablet 20 mg PO DAILY 06/16/23 04/19/24 gabapentin 600 mg tablet 1,200 mg PO 3XD neuropathic pain 06/16/23 04/19/24 clobetasol 0.05 % topical ointment topical DAILY 01/06/24 04/19/24 dalfampridine 10 mg 10 mg PO BID 01/06/24 04/19/24 tablet,extended release,12 hr halobetasol propionate 0.05 % topical 01/06/24 04/19/24 topical ointment montelukast 10 mg tablet 10 mg PO DAILY 01/06/24 04/19/24 omeprazole 40 mg capsule,delayed 40 mg PO DAILY 01/06/24 04/19/24 release rituximab 10 mg/mL 100 mg IV [id number] 01/06/24 04/19/24 concentrate,intravenous (Rituxan) Previous Rx's Medication Instructions Recorded lidocaine 5 % topical patch 1 patch topical DAILY #30 ea 04/26/24 Allergies Allergy/AdvReac Type Severity Reaction Status Date / Time adhesive Allergy Severe BLISTER, Verified 04/19/24 10:31 SKIN COMES OFF capsaicin [CAPSAICIN] Allergy Severe ANAPHYLAXIS Verified 04/19/24 10:31 shellfish derived Allergy Severe ANAPHYLAXIS Verified 04/19/24 10:31 [SHELLFISH DERIVED] latex [LATEX] Allergy Intermediate BLISTER, Verified 04/19/24 10:31 HIVES acetaminophen [From Percocet] Allergy Mild Hives Verified 04/19/24 10:31 oxycodone [From Percocet] Allergy Mild Hives Verified 04/19/24 10:31 tizanidine AdvReac Severe Hives Verified 04/19/24 10:31 Review of Systems <Maged Green PA-C - Last Filed: 05/10/24 18:56> Constitutional Constitutional: Denies chills, Denies fatigue, Denies fever(s), Denies frequent falls, Denies lethargy and Denies weakness Eyes Eyes: Denies change in vision, Denies eye discharge, Denies irritation and De nies loss of vision ENT Ears, Nose, Mouth, and Throat: Denies change in voice, Denies dizziness, Denies neck pain, Denies sore throat and Denies throat swelling Cardiovascular Cardiovascular: Denies chest pain, Denies irregular heart rhythm, Denies lightheadedness, Denies palpitations, Denies dyspnea, Denies dyspnea on exertion and Denies orthopnea Respiratory Respiratory: Denies cough, Denies dyspnea, Denies dyspnea on exertion and Denies wheezing Gastrointestinal Gastrointestinal: Denies abdominal pain, Denies change in bowel habits, Denies diarrhea, Denies nausea and Denies vomiting Musculoskeletal Musculoskeletal: Denies neck pain and Denies numbness Integumentary/Breasts Skin/Breast: Denies pruritus, Reports erythema, Denies rash, Reports skin pain, Reports skin swelling and Reports wounds Neurologic Neurologic: Denies behavioral changes, Denies confusion, Denies dizziness, Denies frequent falls, Denies loss of vision, Denies numbness and Denies weakness Psychiatric Psychiatric: Denies anxiety, Denies behavioral changes, Denies confusion, Denies depression, Denies homicidal ideation and Denies suicidal ideation Endocrine Endocrine: Denies fatigue, Denies flushing and Denies palpitations Hematologic/Lymphatic Hematologic/Lymphatic: Denies easy bruising Allergic/Immunologic Allergic/Immunologic: Denies urticaria, Denies throat swelling and Denies wheezing Patient History <Maged Green PA-C - Last Filed: 05/10/24 18:56> Medical History Low back pain Sacroiliac joint dysfunction of left side Multiple sclerosis Depression Fibromyalgia Rheumatoid arthritis Surgical History H/O shoulder surgery Family History Family/Other Multiple sclerosis Father Cancer Social History household members: spouse Smoking Status: Former smoker Smoking Status: Former smoker alcohol intake frequency: holidays/special occasions only Substance Use Type: does not use Exam <Maged Green PA-C - Last Filed: 05/10/24 18:56> Narrative Exam Narrative: Const General:?cooperative, healthy appearing and comfortable [facility] Head:?normal to inspection Ears:?hearing grossly normal bilaterally Nose:?external nose normal Face and sinus:?normal facial exam and sinuses nontender Mouth:?oral mucosae normal Throat:?posterior oropharynx normal Eyes General:?appearance normal, both eyes and all related structures Neck Neck:?normal visual inspection and no lymphadenopathy noted Resp Effort & Inspection:?normal respiratory effort Auscultation:?clear to auscultation bilaterally Cardio Rate:?regular rate Rhythm:?regular rhythm Integumentary There is a puncture wound on the right hand. There is bruising visualized on the thenar eminence of the right hand. There is swelling, erythema, tenderness to palpation that is spreading proximally and distally from the site of the wound, with erythema stopping just past the left wrist and just past the MCP joints. There is full range of motion. Neuro General:?patient alert, patient awake and patient oriented x3 Initial Vital Signs Initial Vital Signs: Vital Signs Temperature 98.4 F 05/10/24 13:09 Pulse Rate 73 07/22/24 13:09 Respiratory Rate 18 05/10/24 13:09 Blood Pressure 165/85 H 05/10/24 13:09 Pulse Oximetry 100 05/10/24 13:09 Oxygen Delivery Method Room Air 05/10/24 13:09 <La Mas DO - Last Filed: 05/17/24 16:44> Initial Vital Signs Initial Vital Signs: Vital Signs Temperature 98.4 F 05/10/24 13:09 Pulse Rate 73 05/10/24 13:09 Respiratory Rate 18 05/10/24 13:09 Blood Pressure 165/85 H 05/10/24 13:09 Pulse Oximetry 100 05/10/24 13:09 Oxygen Delivery Method Room Air 05/10/24 13:09 Course <Maged Green PA-C - Last Filed: 05/10/24 18:56> Orders Ordered: ED Orders 05/10/24 17:01 XR hand RT min 3V Stat 05/10/24 17:03 XR wrist RT min 3V Stat Vital Signs Vital signs: Vital Signs - 8 hr 05/10/24 13:09 Temperature 98.4 F Pulse Rate 73 Respiratory Rate 18 Blood Pressure 165/85 H Pulse Oximetry 100 Oxygen Delivery Method Room Air <La Mas DO - Last Filed: 05/17/24 16:44> Orders Ordered: ED Orders 05/10/24 17:01 XR hand RT min 3V Stat 05/10/24 17:03 XR wrist RT min 3V Stat Vital Signs Vital signs: Vital Signs - 8 hr 05/10/24 13:09 Temperature 98.4 F Pulse Rate 73 Respiratory Rate 18 Blood Pressure 165/85 H Pulse Oximetry 100 Oxygen Delivery Method Room Air MDM - Animal Bite <JESSICA Lofton Last Filed: 05/10/24 18:56> MDM Narrative Medical decision making narrative: 53-year-old female with past medical history hypothyroidism, osteoarthritis, depression, fibromyalgia presents to the ED for right hand swelling and pain for 2 weeks. Since patient has not been evaluated for this problem until today, will obtain x-ray to rule out foreign body and fractures. X-ray without acute findings. Patient's presentation very consistent with cellulitis. Will treat with antibiotics. ED return precautions discussed with patient. Patient verbalized understanding. Medical records reviewed: Yes Discharge Plan Departure Patient Disposition: Home Clinical Impression: Cellulitis Qualifiers: Site of cellulitis: extremity Site of cellulitis of extremity: upper extremity Laterality: right Qualified Code(s): L03.113 - Cellulitis of right upper limb Instructions: DI for Cellulitis -- Adult, DI for Dog Bite Activity Restrictions/Additional Instructions: You were evaluated in the ED today for a dog bite. Your x-rays were normal. It appears that you have a skin infection or cellulitis from the dog bite. You are being prescribed antibiotics for it. Please take the antibiotics as prescribed. Return to the ED if you have worsening symptoms. Prescriptions: No Action cholecalciferol (vitamin D3) [Vitamin D3] 1,000 UNIT tablet 3,000 iu PO DAILY Qty: 0 MULTIVITAMIN (#MULTIPLE VITAMINS) 1 cap PO QDAY Qty: 0 calcium citrate 200 MG tablet 2,000 mg PO BID Qty: 0 magnesium oxide 400 MG capsule 400 mg PO QDAY Qty: 0 duloxetine [Cymbalta] 60 MG capsule,delayed release(DR/EC) 60 mg PO QDAY Qty: 0 lidocaine 5 % adhesive patch,medicated 1 patch topical DAILY Qty: 30 1RF Rx Instructions: leave on most painful area for 12 hrs gabapentin 600 mg tablet 1,200 mg PO 3XD baclofen 20 mg tablet 20 mg PO DAILY montelukast 10 mg tablet 10 mg PO DAILY dalfampridine 10 mg tablet extended release 12 hr 10 mg PO BID Rituxan 10 mg/mL concentrate 100 mg IV [id number] omeprazole 40 mg capsule,delayed release(DR/EC) 40 mg PO DAILY halobetasol propionate 0.05 % ointment topical clobetasol 0.05 % ointment topical DAILY Referrals: Tresa Francisco ARNP [Primary Care Provider] - Stand Alone Forms: Patient Portal/API ED Sign-out <La Mas DO - Last Filed: 05/17/24 16:44> Cosign ED Attending Franklynature Attestation: I was available for consultation.
--- NOTE | 2024-05-10 17:01 | DI.RAD.S_ITS ---
PROCEDURE: XR HAND RT MIN 3V INDICATIONS: Dog bite TECHNIQUE: 3 views of the hand(s) acquired. COMPARISON: [facility], CR, XR HAND RT MIN 3V, 03/13/2019, 10:46. FINDINGS: Bones: No fractures or dislocations. Carpal bones are normally aligned. No suspicious bony lesions. Soft tissues: No suspicious soft tissue calcifications. No radiopaque foreign body. IMPRESSION: No acute bony abnormality. Dictated by: Colt Calderon M.D. on 05/10/2024 at 18:37 Approved by: Colt Calderon M.D. on 05/10/2024 at 18:39
--- NOTE | 2024-05-10 17:03 | DI.RAD.S_ITS ---
PROCEDURE: XR WRIST RT MIN 3V INDICATIONS: dog bite TECHNIQUE: 4 views of the wrist were acquired. COMPARISON: [facility], , XR WRIST RT MIN 3V, 01/11/2022, 11:23. FINDINGS: Bones: No fractures or dislocations. No suspicious bony lesions. Soft tissues: No suspicious soft tissue calcifications. No radiopaque foreign body. IMPRESSION: No acute bony abnormality. Dictated by: Colt Calderon M.D. on 05/10/2024 at 18:39 Approved by: Colt Calderon M.D. on 05/10/2024 at 18:40
[2024-05-10 19:28] VITALS: BP 185/85; PULSE 83; RESP 16; O2SAT 100
== END 2024-05-10 19:29 | disposition home or self-care (01) ==
PROVIDERS: Emergency Provider Student in an Organized Health Care Education/Training Program; PCP Nurse Practitioner Family
DX: L03.113 Cellulitis of right upper limb (principal)
CPT/HCPCS: 73110; 73130; 99283

== ENCOUNTER 2024-06-23 12:09 | Emergency (ER) | payer OTHER, SELFPAY ==
[2024-05-27 10:05] VITALS: BMI 36.3
[2024-06-23 12:12] VITALS: BP 176/85; PULSE 78; RESP 18; TEMP 36.6; O2SAT 100; BMI 34.2
--- NOTE | 2024-06-23 12:26 | ED_ITS ---
HPI - Extremity Problem <Sebastian Leblanc PA-C - Last Filed: 06/23/24 12:49> General Chief complaint: Extremity Problem,Nontraumatic Stated complaint: sent by wic, nerve pain in rt arm/hand Time Seen by Provider: 06/23/24 12:26 Source: patient Mode of arrival: Ambulatory History of Present Illness HPI Narrative: This is a 53-year-old female presents emergency department due to reported numbness as well as weakness to her right upper extremity. She has a history of cervical stenosis in his had these symptoms in the past states that they are worse currently. She denies any trauma when the symptoms worsened about 6 days ago. She denies any facial drooping, slurred speech, amnesia, weakness in other parts of her body. She has an established spine surgeon that she was had a cervical MRI in the past with as well as lumbar surgery due to some lumbar stenosis as well. She denies any urinary or bowel incontinence, saddle paresthesias, fevers. Related Data Home Medications Medication Instructions Recorded Confirmed MULTIVITAMIN (#MULTIPLE VITAMINS) 1 cap PO QDAY ##0 08/10/12 04/19/24 cholecalciferol (vitamin D3) 25 3,000 iu PO DAILY ##0 08/10/12 04/19/24 mcg (1,000 unit) tablet (Vitamin D3) calcium citrate 200 mg (950 mg) 2,000 mg PO BID ##0 10/08/16 04/19/24 tablet magnesium oxide 400 mg PO QDAY ##0 10/08/16 04/19/24 duloxetine 60 mg capsule,delayed 60 mg PO QDAY ##0 06/20/17 04/19/24 release (Cymbalta) baclofen 20 mg tablet 20 mg PO DAILY 06/16/23 04/19/24 gabapentin 600 mg tablet 1,200 mg PO 3XD neuropathic pain 06/16/23 04/19/24 clobetasol 0.05 % topical ointment topical DAILY 01/06/24 04/19/24 dalfampridine 10 mg 10 mg PO BID 01/06/24 04/19/24 tablet,extended release,12 hr halobetasol propionate 0.05 % topical 01/06/24 04/19/24 topical ointment montelukast 10 mg tablet 10 mg PO DAILY 01/06/24 04/19/24 omeprazole 40 mg capsule,delayed 40 mg PO DAILY 01/06/24 04/19/24 release rituximab 10 mg/mL 100 mg IV [id number] 01/06/24 04/19/24 concentrate,intravenous (Rituxan) Previous Rx's Medication Instructions Recorded lidocaine 5 % topical patch 1 patch topical DAILY #30 ea 04/26/24 Allergies Allergy/AdvReac Type Severity Reaction Status Date / Time adhesive Allergy Severe BLISTER, Verified 04/19/24 10:31 SKIN COMES OFF capsaicin [CAPSAICIN] Allergy Severe ANAPHYLAXIS Verified 04/19/24 10:31 shellfish derived Allergy Severe ANAPHYLAXIS Verified 04/19/24 10:31 [SHELLFISH DERIVED] latex [LATEX] Allergy Intermediate BLISTER, Verified 04/19/24 10:31 HIVES acetaminophen [From Percocet] Allergy Mild Hives Verified 04/19/24 10:31 oxycodone [From Percocet] Allergy Mild Hives Verified 04/19/24 10:31 tizanidine AdvReac Severe Hives Verified 04/19/24 10:31 Review of Systems <Sebastian Leblanc PA-C - Last Filed: 06/23/24 12:49> Review of Systems Narrative: GENERAL: Denies chills, fatigue, malaise, fever, sweats. HEENT: Denies sinus pain, ear pain, sore throat, difficulty swallowing, dizziness. RESPIRATORY: Denies dyspnea, cough, wheezing, hemoptysis, sputum. CARDIOVASCULAR: Denies chest pain, palpitations, orthopnea, edema, GASTROINTESTINAL: Denies nausea, vomiting, abdominal pain, diarrhea, constipation, melena. : Denies dysuria, frequency, incontinence, hematuria, urinary retention. MUSCULOSKELETAL: Reports right upper extremity weakness and numbness SKIN: Denies rash, skin lesions, or other NEUROLOGIC: Denies weakness, headache, , change in speech, confusion, seizures, incoordination. PSYCHIATRIC: No concerning psychosocial issues. 12 point review of systems is negative except for those stated above Patient History <Sebastian Leblanc PA-C - Last Filed: 06/23/24 12:49> Medical History Low back pain Sacroiliac joint dysfunction of left side Multiple sclerosis Depression Fibromyalgia Rheumatoid arthritis Surgical History H/O shoulder surgery Family History Family/Other Multiple sclerosis Father Cancer Social History household members: spouse Smoking Status: Former smoker Smoking Status: Former smoker alcohol intake frequency: holidays/special occasions only Substance Use Type: does not use Exam <Sebastian Leblanc PA-C - Last Filed: 06/23/24 12:49> Narrative Exam Narrative: GENERAL: Well-developed patient, in mild distress. HEAD: Atraumatic. Normocephalic. EYES: Pupils equal round and reactive. Extraocular motions intact. No scleral icterus. No injection or drainage. ENT: Nose without bleeding, purulent drainage. Throat without erythema, tonsillar hypertrophy or exudate. Airway patent. NECK: Trachea midline. Non tender EXTREMITIES: No edema or joint tenderness. NEURO: AOx3. Cranial nerves 2-12 intact. No significant sensation abnormalities. Patient was noted to have 4/5 bellman driver strength to the rep right upper extremity, otherwise unremarkable motor exam. SKIN: No rash or erythema of visible areas Initial Vital Signs Initial Vital Signs: Vital Signs Temperature 98 F 06/23/24 12:12 Pulse Rate 78 06/23/24 12:12 Respiratory Rate 18 06/23/24 12:12 Blood Pressure 176/85 H 06/23/24 12:12 Pulse Oximetry 100 06/23/24 12:12 Oxygen Delivery Method Room Air 06/23/24 12:12 <Adelso Medina MD - Last Filed: 06/23/24 18:45> Initial Vital Signs Initial Vital Signs: Vital Signs Temperature 98 F 06/23/24 12:12 Pulse Rate 78 06/23/24 12:12 Respiratory Rate 18 06/23/24 12:12 Blood Pressure 176/85 H 06/23/24 12:12 Pulse Oximetry 100 06/23/24 12:12 Oxygen Delivery Method Room Air 06/23/24 12:12 Course <Sebastian Leblanc PA-C - Last Filed: 06/23/24 12:49> Orders Ordered: Discontinued Medications Ketorolac Tromethamine (Ketorolac 30 Mg/Ml Vial) 15 mg IM NOW ONE Stop: 09/04/24 12:39 Last Admin: 06/23/24 12:50 Dose: 15 mg Documented By: ASCENCION Vital Signs Vital signs: Vital Signs - 8 hr 06/23/24 12:12 Temperature 98 F Pulse Rate 78 Respiratory Rate 18 Blood Pressure 176/85 H Pulse Oximetry 100 Oxygen Delivery Method Room Air <Adelso Medina MD - Last Filed: 06/23/24 18:45> Orders Ordered: Discontinued Medications Ketorolac Tromethamine (Ketorolac 30 Mg/Ml Vial) 15 mg IM NOW ONE Stop: 06/23/24 12:39 Last Admin: 06/23/24 12:50 Dose: 15 mg Documented By: ASCENCION Vital Signs Vital signs: Vital Signs - 8 hr 06/23/24 12:12 Temperature 98 F Pulse Rate 78 Respiratory Rate 18 Blood Pressure 176/85 H Pulse Oximetry 100 Oxygen Delivery Method Room Air MDM - Extremity (Nontraumatic) <Sebastian Leblanc PA-C - Last Filed: 06/23/24 12:49> MDM Narrative Medical decision making narrative: ED course: This is a 53-year-old female presents to the emergency department due to a suspected flare-up of her chronic cervical stenosis symptoms. MRI was reviewed which did show evidence of cervical stenosis from MRI last year. Recommended patient follow up with the established spinal surgeon Bacilio to discuss possible operative intervention as symptoms seem to have worsened slightly. She was not presenting any symptoms concerning for any kind of ischemic or hemorrhagic stroke. No other red flag symptoms. Patient given Toradol for pain relief. There was no trauma and shared decision-making utilized and no imaging ordered. CC: Numbness and weakness in right upper extremity Complicating co-morbidities: History of hypothyroidism, osteoarthritis, depression, fibromyalgia, spinal stenosis, MS Data collected from: Previous notes Medical records reviewed: Patient was last seen 2 months ago due to an animal bite. History of hypothyroidism, osteoarthritis, depression, fibromyalgia. History of lower back pain, SI joint dysfunction, multiple sclerosis, rheumatoid arthritis. Patient was seen in the walk-in clinic just prior to arrival and reported numbness to the right forearm for 6 days that radiated to the bicep. States that she was unable to use her arm. Differential considered, but not limited to: Ischemic/hemorrhagic hemorrhage. Cervical stenosis, fracture Exam documented above, pertinent findings include: Was noted to have slightly decreased bellman driver strength, otherwise unremarkable Lab Test results independently reviewed as above. Pertinent findings: None obtained Imaging studies independently reviewed: None obtained Scores Used: None MIPS Elements: None Consultations: None Treatments: IM Toradol Re-evaluations: None Discussion: Discussed plan with the patient was comfortable with the plan Diagnosis: Cervical stenosis Disposition: see below, along with detailed discharge instructions that have been reviewed with patient as well as indications for ED re-evaluation and additional outpatient follow up Discharge Plan Departure Patient Disposition: Home Clinical Impression: Cervical radiculopathy Activity Restrictions/Additional Instructions: Thank you for coming to the [facility] Emergency Department today. As we discussed I do suspect that the symptoms you are having as flare-up of your chronic cervical stenosis that was seen on the MRI from last year. I do not believe you are having any kind of ?stroke?. I do recommend he follow up with the established spinal surgeon. Please give him a call today to arrange for further management and follow up and possible operative intervention. Please return to the emergency department if you develop any slurred speech, facial drooping, significant new weakness, or any other concerning signs or symptoms. I hope you feel better soon. Please follow up with your primary care provider within a week if your symptoms continue. If you do not have a primary care provider please contact the [facility] Resource line at [phone]. They will ask some questions about your medical history and help you get set up with a provider in the community. Prescriptions: No Action cholecalciferol (vitamin D3) [Vitamin D3] 1,000 UNIT tablet 3,000 iu PO DAILY Qty: 0 MULTIVITAMIN (#MULTIPLE VITAMINS) 1 cap PO QDAY Qty: 0 calcium citrate 200 MG tablet 2,000 mg PO BID Qty: 0 magnesium oxide 400 MG capsule 400 mg PO QDAY Qty: 0 duloxetine [Cymbalta] 60 MG capsule,delayed release(DR/EC) 60 mg PO QDAY Qty: 0 lidocaine 5 % adhesive patch,medicated 1 patch topical DAILY Qty: 30 1RF Rx Instructions: leave on most painful area for 12 hrs gabapentin 600 mg tablet 1,200 mg PO 3XD baclofen 20 mg tablet 20 mg PO DAILY montelukast 10 mg tablet 10 mg PO DAILY dalfampridine 10 mg tablet extended release 12 hr 10 mg PO BID Rituxan 10 mg/mL concentrate 100 mg IV [id number] omeprazole 40 mg capsule,delayed release(DR/EC) 40 mg PO DAILY halobetasol propionate 0.05 % ointment topical clobetasol 0.05 % ointment topical DAILY Referrals: Tresa Francisco ARNP [Primary Care Provider] - Stand Alone Forms: Patient Portal/API ED Sign-out <Adelso Medina MD - Last Filed: 06/23/24 18:45> Cosign ED Attending Cosignature Attestation: I was immediately available in the department for consultation. This documentation has been reviewed and I agree with assessment and plan. Supervised by Adelso Medina MD
[2024-06-23] MEDS: KETOROLAC 30 MG/ML VIAL 15 MG IM (12:50)
== END 2024-06-23 13:02 | disposition home or self-care (01) ==
PROVIDERS: Emergency Provider Physician Assistant Medical; PCP Nurse Practitioner Family
DX: M54.12 Radiculopathy, cervical region (principal)
CPT/HCPCS: 96372; 99283; J1885

== ENCOUNTER → 2024-07-09 | Outpatient (CLI) | payer OTHER, SELFPAY ==
[2024-05-27 10:05] VITALS: BMI 36.3
--- NOTE | 2024-07-09 18:13 | DI.MRI.S_ITS ---
PROCEDURE: MR CERVICAL SPINE WO CON INDICATIONS: Radiculopathy, cervical region TECHNIQUE: Noncontrast sagittal T1 spin echo and T2 fast spin echo, sagittal STIR, foraminal oblique sagittal T2 fast spin echo, and axial gradient echo or T2 fast spin echo through the cervical spine. COMPARISON: [facility], MR, MR CERVICAL SPINE WO CON, 01/24/2023, 19:21. FINDINGS: Image quality: Excellent. Alignment and Curvature: There is normal bony alignment. Bone Marrow: Marrow demonstrates normal overall signal. Spinal Cord: Visualized spinal cord has normal size and signal. No cerebellar tonsillar herniation. Paraspinous Soft Tissues: No paravertebral masses. Prevertebral soft tissues are normal in thickness. C2-C3: Disc desiccation with bilateral uncovertebral joint and facet hypertrophy. There is moderate to severe bilateral neural foraminal narrowing, slightly worse on the right without significant spinal canal stenosis. Findings appear similar when compared to the MRI from 01/24/2023. C3-C4: Disc desiccation with mild posterior disc-osteophyte complex and bilateral uncovertebral joint and facet hypertrophy. There is moderate to severe bilateral neural foraminal narrowing, worse on the left, without significant spinal canal stenosis. Findings do not appear significantly changed compared to the prior exam. C4-C5: Disc desiccation and mild posterior disc-osteophyte complex with bilateral uncovertebral joint and facet hypertrophy. Findings result in moderate right and moderate to severe left neural foraminal narrowing without significant spinal canal stenosis, similar when compared to the prior MRI. C5-C6: Disc desiccation and mild loss of disc space height with moderate posterior disc-osteophyte complex and bilateral uncovertebral joint and facet hypertrophy. Findings result in at least moderate narrowing of the spinal canal with effacement of the ventral and dorsal CSF spaces. No abnormal cord signal. There is moderate to severe bilateral neural foraminal narrowing. Findings do not appear significantly changed when compared to the prior MRI. C6-C7: Mild loss of disc space height with posterior disc-osteophyte complex and bilateral uncovertebral joint and facet hypertrophy. Findings result in moderate narrowing of the spinal canal with effacement of the ventral and dorsal CSF spaces and no abnormal cord signal as well as at least moderate to severe bilateral neural foraminal narrowing. Findings do not appear significantly progressed when compared to the prior MRI. C7-T1: No significant spinal canal stenosis or neural foraminal narrowing. IMPRESSION: 1. Multilevel degenerative disc disease, uncovertebral joint hypertrophy, and facet hypertrophy as described in detail in the body of the report. Findings appear similar when compared to the MRI from 01/24/2023. 2. Moderate spinal canal narrowing at the C5-6 and C6-7 levels. 3. Multifocal high-grade neural foraminal narrowing. Approved by: Dante Villa M.D. on 07/12/2024 at 15:04
== END ==
LOC: MRI 18:11
PROVIDERS: PCP Nurse Practitioner Family; Referring Provider Nurse Practitioner Family; Visit Provider Nurse Practitioner Family
DX: M50.11 Cervical disc disorder with radiculopathy, high cervical region (principal); M48.02 Spinal stenosis, cervical region; M47.22 Other spondylosis with radiculopathy, cervical region; R20.2 Paresthesia of skin; M79.641 Pain in right hand
CPT/HCPCS: 72141

== ENCOUNTER → 2024-10-08 16:13 | Outpatient (CLI) | payer OTHER, SELFPAY ==
[2024-05-27 10:05] VITALS: BMI 36.3
--- NOTE | 2024-10-08 16:14 | DI.MRI.S_ITS ---
PROCEDURE: MR LUMBAR SPINE WO CON INDICATIONS: Post Lami Syndrome TECHNIQUE: Noncontrast sagittal T1 spin echo and T2 fast echo, sagittal STIR, and T2 fast spin echo through the lumbar spine. In cases with scoliosis, additional coronal T2 fast spin echo may be performed. COMPARISON: [facility], MR, MR LUMBAR SPINE WO CON, 01/24/2023, 19:45. [facility], CR, XR LUMBAR SPINE 2 OR 3 VIEWS, 09/26/2023, 9:54. [facility], CR, XR LUMBAR SPINE 2 OR 3 VIEWS, 09/01/2023, 12:45. [facility], MR, MR LUMBAR SPINE WO CON, 06/11/2023, 16:17. FINDINGS: Image quality: Excellent. Alignment and Curvature: Grade 1 anterolisthesis is seen at the L4-L5 level, which is more prominent on the current study than on the prior. Bone Marrow: Marrow is of normal overall signal. No acute vertebral body compression fractures. Spinal Cord: Conus medullaris terminates at the L1 level. Visualized cord demonstrates normal signal and size. Paraspinous Soft Tissues: No paravertebral masses. Expected postoperative changes can be seen posteriorly, with mild generalized fluid. No focally suspicious fluid collection is seen. T12-L1: Normal appearance. L1-L2: Normal appearance. L2-L3: Normal appearance. L3-L4: The disc height and disk signal are relatively well-preserved. Mild to moderate disc bulge is seen. There is a superimposed central disc protrusion. Moderate facet joint hypertrophy is seen. There is at least moderate left-sided and moderate right-sided neural foraminal narrowing. There is a mild degree of compression seen upon the exiting left L3 nerve root. Mild central canal narrowing is seen. When comparison is made with the prior images, these findings are similar. L4-L5: Jaym-[id number]-sflqvozu loss of disc height and disc signal can be seen. Moderate disc bulge is seen, with a central disc extrusion. Moderate to prominent facet hypertrophy is seen. There is moderate to severe bilateral neural foraminal narrowing seen, with an associated degree of compression seen upon the exiting nerve roots. Moderate central canal narrowing is seen. The degenerative changes at this level are overall worse than on the prior MRI, although the degree of central canal narrowing is improved compared to the prior. L5-S1: The disc height and disk signal are well-preserved. Mild generalized disc bulge is seen. Moderate facet joint hypertrophy is seen. No significant neural foraminal or central canal narrowing can be seen. When comparison is made with the prior images, these findings are similar. IMPRESSION: Interval worsening of degenerative change at L4-L5, although the degree of central canal narrowing is improved at this level compared to the prior MRI. Dictated by: Wero Craft M.D. on 10/08/2024 at 17:48 Approved by: Wero Craft M.D. on 10/08/2024 at 17:53
== END ==
LOC: MRI 16:13
PROVIDERS: PCP Nurse Practitioner Family; Referring Provider Physical Medicine & Rehabilitation; Visit Provider Physical Medicine & Rehabilitation
DX: M96.1 Postlaminectomy syndrome, not elsewhere classified (principal); M47.26 Other spondylosis with radiculopathy, lumbar region; M47.27 Other spondylosis with radiculopathy, lumbosacral region; M48.061 Spinal stenosis, lumbar region without neurogenic claudication
CPT/HCPCS: 72148

== ENCOUNTER → 2024-12-10 11:27 | Outpatient (CLI) | payer OTHER, SELFPAY ==
[2024-05-27 10:05] VITALS: BMI 36.3
--- NOTE | 2024-12-10 11:29 | DI.US.S_ITS ---
PROCEDURE: US INJECT OR DRAIN JOINT INDICATIONS: ARTHRITIS RIGHT STERNOCLAVICULAR JOINT - STEROID INJECTION TECHNIQUE: The indications, alternatives, benefits, risks, and complications of the procedure were explained to the patient. Written informed consent was obtained and placed in the chart. The patient was placed in an appropriate position on the fluoroscopy table, and a site was chosen for percutaneous access under ultrasound guidance. Local anesthetic was administered using a 1% lidocaine solution. A hypodermic or spinal needle was then used to access the symptomatic joint. Intra-articular location of the needle tip was confirmed by real time ultrasound imaging, followed by steroid administration. The needle was then withdrawn, and a bandage applied to the puncture site. COMPARISON: [facility], , XR STERNOCLAVICULAR JOINTS, 11/19/2024, 10:59. FINDINGS: Joint injected: Right sternoclavicular joint Medications injected: 2 mL of 40 mg/mL Kenalog and 0.5% Ropivacaine mixture. Complications: None. IMPRESSION: Successful ultrasound guided administration of steroid and anaesthetic solution into the right sternoclavicular joint. Approved by: Dante Villa M.D. on 12/10/2024 at 16:17
== END ==
LOC: US 11:28
PROVIDERS: PCP Nurse Practitioner Family; Referring Provider Orthopaedic Surgery; Visit Provider Orthopaedic Surgery
DX: M19.011 Primary osteoarthritis, right shoulder (principal)
CPT/HCPCS: 20611

== ENCOUNTER 2024-12-16 08:07 | Outpatient (CLI) | payer OTHER, SELFPAY ==
[2024-05-27 10:05] VITALS: BMI 36.3
[2024-12-16] VITALS (8 sets, daily range): BP systolic 153–187; BP diastolic 79–100; PULSE 74–82; RESP 16–18; TEMP 37; O2SAT 97–100
--- NOTE | 2024-12-16 08:12 | DI.RAD.S_ITS ---
PROCEDURE: PAIN L/S TRANSFORAMINAL INJECT INDICATIONS: RIGHT L4/5 TF JULIO C COMPARISON: None. FINDINGS/IMPRESSION: Fluoroscopic spot filming was performed to verify placement of spinal needles at the L4-L5 posterior epidural level(s), as labeled on the films. Appropriate location(s) of the needle tip(s) was confirmed by injection of iodinated contrast. Dictated by: Jenny Collins MD, PhD on 12/16/2024 at 11:49 Approved by: Jenny Collins MD, PhD on 12/16/2024 at 11:50
--- NOTE | 2024-12-16 08:13 | DI.RAD.S_ITS ---
PROCEDURE: XR RIBS RT 2V INDICATIONS: pain of sternoclavicular joint without trauma TECHNIQUE: 2 views of the ribs were acquired. COMPARISON: None. FINDINGS: Surgical changes and devices: None. Bones and chest wall: No fractures or dislocations. No suspicious bony lesions. Overlying soft tissues appear unremarkable. Lungs and pleura: The visualized lung appears clear. No pleural effusions or pneumothorax are visible. IMPRESSION: No displaced rib fracture. Dictated by: Jenny Collins MD, PhD on 12/16/2024 at 11:42 Approved by: Jenny Collins MD, PhD on 12/16/2024 at 11:42
[2024-12-16] MEDS: MIDAZOLAM 2 MG/2 ML VIAL IV (09:01)
[2024-12-16] MEDS: BUPIVACAINE 0.25% (PF) VIAL 2 ML INJ (09:11)
[2024-12-16] MEDS: BETAMETHASONE 30 MG/5 ML MDV 12 MG INJ (09:11)
[2024-12-16] MEDS: DEXAMETHASONE 10 MG/ML VIAL INJ (09:12)
[2024-12-16] MEDS: iopamidoL 15 ML VIAL 3 ML INJ (09:12)
--- NOTE | 2024-12-16 09:26 | P.PCN_ITS ---
Date/Time/Diagnoses Date of procedure: 12/16/24 Time of procedure: 09:26 Pre-procedure diagnosis: 1. FORAMINAL STENOSIS WITH LE SYMPTOMS Post-procedure diagnosis: same Procedure Notes Procedure: 1. FLUOROSCOPICALLY GUIDED CONTRAST CONTROLLED TRANSFORAMINAL EPIDURAL STEROID INJECTION - RIGHT L4/5 TFESI Indications: Herminia is referred by AZUL Francisco for treatment of Foraminal Stenosis with Right LE Symptoms Physician: Marco A Hodge Total Fluoroscopy time (seconds): 12 Total sedation minutes: 18 Complications: none Procedure in detail & Post-procedure care: FINDINGS Foraminal Nerve Root Compression secondary to disc disease and facet hypertrophy DESCRIPTION OF PROCEDURE Following review of allergy and review of potential side effects and complications, including, but not necessarily limited to, infection, allergic reaction, local tissue breakdown, stroke, temporary or permanent nerve injury, paralysis, and possible , the patient indicated that the patient understood and agreed to proceed. An informed consent document was signed by the patient, witnessed by a nurse, and placed in the patient's chart. Additionally, other treatment options including medications, modalities, and physical therapy were reviewed with the patient. After review of previous anaesthesic history and IV conscious sedation the patient was deemed safe to proceed with today?s procedure with IV conscious sedation as ASA class II designation. Safety time-out was performed to confirm patient ID, procedure to be performed and site of procedure. IV sedation was accomplished with a combination of 2mg of Versed was administered by the RN after DO order, titrated to patient comfort during the course of the procedure while the patient remained responsive to all verbal commands In the prone position following sterile prep and drape of the lumbar region, the right L4/5 posterior neuroforamen was identified fluoroscopically. The skin was anesthetized via a 25-gauge 1.5-inch needle with 1% lidocaine solution. At this point, a 25-gauge 3.5-inch spinal needle was atraumatically introduced and advanced under fluoroscopic guidance through the posterior right L4/5 neuroforamen to approximately the anterior aspect of the canal. Depth was confirmed on lateral view. Following negative aspiration, injection of approximately 1.5cc of Isovue 200 under live fluoroscopy in the AP view confirmed excellent flow along the nerve root, into the epidural space without vascular or intrathecal uptake observed Radiological data, including multiple fluoroscopic views of the lumbosacral spine, reveal a spinal needle at the right L4/5 posterior neuroforamen. Subsequent views show flow of contrast material flowing superiorly and inferiorly along the nerve root confirming epidural flow. Subsequently, a test dose of 1.5 cc of 1% lidocaine solution was administered and patient was observed for two minutes for signs or symptoms of complications, including abdominal pain, shortness of breath, bilateral upper or lower extremity weakness, nausea and vomiting, prior to steroid injection. At this point, a total of 2cc or 10mg of dexamethasone and 6mg of betamethasone was injected without incident. The procedure tolerated the procedure well without signs or symptoms of complications prior to transfer to the recovery area continued monitoring without incident. The patient was then transferred to the recovery area where they were observed for an appropriate time after the injection. The patient reported a VAS score of 7 prior to the procedure and a post- procedure VAS of 1. POST OP INSTRUCTIONS The patient was provided a Pain Log to continue to record their response to the target-specific procedure prior to follow-up visit with their referring physician. Additionally, specific post-injection care instructions and a contact number to our office were provided if concerns arise regarding possible complications associated with the procedure are suspected.
== END 2024-12-16 09:39 | disposition home or self-care (01) ==
PROVIDERS: PCP Nurse Practitioner Family; Referring Provider Physical Medicine & Rehabilitation; Visit Provider Physical Medicine & Rehabilitation
DX: M48.061 Spinal stenosis, lumbar region without neurogenic claudication (principal); M51.16 Intervertebral disc disorders with radiculopathy, lumbar region; M47.26 Other spondylosis with radiculopathy, lumbar region; M25.511 Pain in right shoulder
CPT/HCPCS: 64483; 71100; 99152; J0702; J1100; J2250; J3490

== ENCOUNTER 2025-02-08 08:52 | Outpatient (CLI) | payer OTHER, SELFPAY ==
[2025-01-02 08:42] VITALS: BMI 36.3
[2025-02-08] VITALS (9 sets, daily range): BP systolic 168–193; BP diastolic 78–104; PULSE 66–79; RESP 12–16; TEMP 36.8; O2SAT 97–100
[2025-02-08] MEDS: MIDAZOLAM 2 MG/2 ML VIAL IV (10:01)
[2025-02-08] MEDS: DEXAMETHASONE 10 MG/ML VIAL 20 MG INJ (10:07)
[2025-02-08] MEDS: BUPIVACAINE 0.25% (PF) VIAL 2 ML INJ (10:07)
[2025-02-08] MEDS: iopamidoL 15 ML VIAL 3 ML INJ (10:08)
[2025-02-08] MEDS: DEXAMETHASONE 10 MG/ML VIAL INJ (10:11)
--- NOTE | 2025-02-08 10:20 | P.PCN_ITS ---
Date/Time/Diagnoses Date of procedure: 02/08/25 Time of procedure: 10:21 Pre-procedure diagnosis: 1. CERVICAL STENOSIS, 2. CERVICAL HNP WITH UPPER EXTREMITY RADICULAR FEATURES Post-procedure diagnosis: same Procedure Notes Procedure: 1. FLUORSCOPICALLY GUIDED CONTRAST CONTROLLED INTERLAMINAR EPIDURAL STEROID INJECTION - C6/7 TL JULIO C Indications: Herminia is referred by AZUL Francisco for treatment of Cervical HNP with Upper Extremity Paresthesias. Physician: Marco A Hodge Total Fluoroscopy time (seconds): 27 Total sedation minutes: 14 Complications: none Procedure in detail & Post-procedure care: FINDINGS Cervical Stenosis due to disc deterioration and nerve root irritation and nerve root irritation DESCRIPTION OF PROCEDURE Fluoroscopically guided, contrast-controlled C6/7 translaminar epidural steroid injection with conscious sedation. Following review of allergy and review of potential side effects and complications, including, but not necessarily limited to, infection, allergic reaction, local tissue breakdown, temporary as well as permanent nerve injury, stroke, paralysis, and possible , the patient indicated that patient understood and agreed to proceed. An informed consent document was signed by the patient, witnessed by a nurse, and placed in the patient's chart. Additionally, other treatment options including modalities, medications, and physical therapy were reviewed with the patient. After review of previous anaesthesic history and IV conscious sedation the patient was deemed safe to proceed with today?s procedure with IV conscious s edation as ASA class II designation. Safety time-out was performed to confirm patient ID, procedure to be performed and site of procedure. IV sedation was accomplished with a combination of 2mg of Versed administered by the RN after DO order, titrated to patient comfort during the course of the procedure while the patient remained responsive to all verbal commands. In the prone position, following sterile prep and drape of the cervical region, the C6/7 translaminar space was identified fluoroscopically. The skin was anesthetized via a 25-gauge 1.5-inch needle with 1% lidocaine solution. At this point, a 25-gauge, 2.5-inch short bevel spinal needle was atraumatically introduced and advanced under fluoroscopic guidance into epidural space at the C6/7 translaminar space. Depth was confirmed on lateral view. Radiological data, including multiple fluoroscopic views of the cervical spine, reveal a spinal needle at the C6/7 translaminar space. Lateral views then show placement of the needle in the epidural space. Subsequent views show contrast material flowing superiorly and inferiorly in the epidural space. DSA fluoroscopy with live contrast injection, once again, confirmed no vascular or intrathecal uptake. At this point, using loss of resistance technique with saline and air, the epidural space was entered. Following negative aspiration, injection of approximately 1.5 cc of Isovue-200 with live fluoroscopy in the AP view confirmed epidural flow in the epidural space without vascular or intrathecal uptake observed. Subsequently, a test dose of 1 cc of 1% lidocaine solution was injected and patient was observed for two minutes without signs or symptoms of complications, including abdominal pain, shortness of breath, bilateral upper or lower extremity weakness, nausea and vomiting, prior to steroid injection. At this point, 2cc or 20mg of dexamethasone was then injected without incident. The patient tolerated the procedure well without signs or symptoms of complications prior to being transferred to the recovery area for further monitoring, The patient was then transferred to the recovery area where they were observed for an appropriate period of time after the injection. The patient reported a VAS score of 6 prior to the procedure and a post-procedure VAS of 0. POST OP INSTRUCTIONS The patient was provided a Pain Log to continue to record their response to the target-specific procedure prior to follow-up visit with the referring provider. Additionally, specific post-injection care instructions and a contact number to our office were provided if concerns arise regarding possible complications associated with the procedure are suspected.
== END 2025-02-08 10:31 | disposition home or self-care (01) ==
PROVIDERS: PCP Nurse Practitioner Family; Referring Provider Physical Medicine & Rehabilitation; Visit Provider Physical Medicine & Rehabilitation
DX: M48.02 Spinal stenosis, cervical region (principal); M50.123 Cervical disc disorder at C6-C7 level with radiculopathy
CPT/HCPCS: 62321; 99152; J1100; J2250; J3490

== ENCOUNTER → 2025-02-20 13:54 | Outpatient (CLI) | payer OTHER, SELFPAY ==
[2025-01-02 08:42] VITALS: BMI 36.3
--- NOTE | 2025-02-20 13:55 | DI.MRI.S_ITS ---
PROCEDURE: MR HEAD/BRAIN WO CON INDICATIONS: multiple sclerosis TECHNIQUE: Noncontrast axial T1 spin echo, axial T2 fast spin echo, sagittal and axial FLAIR, coronal T2 fast spin echo, axial gradient echo, axial diffusion and ADC through the brain. COMPARISON: [facility], , MR HEAD/BRAIN WO CON, 04/19/2022, 16:39. FINDINGS: Image quality: Excellent. CSF Spaces: Basal cisterns are patent. No extra-axial fluid collections. Ventricles are normal in size and shape. Brain: No intracranial masses or hemorrhage. There is a mild degree of patchy high FLAIR signal within the periventricular, colo cell, and pericallosal white matter, most prominently within the right frontal lobe, in a configuration compatible with multiple sclerosis. There is been no significant change. Jesus/white matter interface is normal. Brainstem appears normal. Diffusion-weighted images demonstrate no acute infarct. No chronic ischemic insults. Normal intravascular flow voids are present. Skull and face: Calvarium has normal marrow signal. Orbits appear normal. Sinuses: Sinuses and mastoids are clear. IMPRESSION: 1. Stable mild degree of multiple sclerosis. 2. No acute process. No recent infarct. Dictated by: Stefano Cortes M.D. on 02/21/2025 at 12:07 Approved by: Stefano Cortes M.D. on 02/21/2025 at 12:09
== END ==
PROVIDERS: PCP Nurse Practitioner Family; Referring Provider Psychiatry & Neurology Neurology; Visit Provider Psychiatry & Neurology Neurology
DX: G35 Multiple sclerosis (principal)
CPT/HCPCS: 70551

== ENCOUNTER → 2025-08-07 13:38 | Outpatient (CLI) | payer OTHER, SELFPAY ==
[2025-01-02 08:42] VITALS: BMI 36.3
--- NOTE | 2025-08-07 13:39 | DI.CT.S_ITS ---
PROCEDURE: CT LUMBAR SPINE WO CON INDICATIONS: radiculopathy of lumbar spine TECHNIQUE: Noncontrast 3 mm thick sections acquired from the T12 level to the sacrum. Sagittal and coronal reformats were constructed. For radiation dose reduction, the following was used: automated exposure control. COMPARISON: [facility], CR, XR LUMBAR SPINE WITH FLEXION EXTENSION 5 VIEWS, 03/09/2025, 14:00. FINDINGS: Image quality: Diagnostic Bones: 0.9 cm L4 on L5 anterolisthesis again seen without L4 chronic pars defects. Vertebral body heights are well maintained. Mild overall spondylosis elsewhere, with disc space height loss and osteophytes, and facet arthropathy. Disc space height loss is most significant at L4-L5 and T11-T12. There is disc uncovering at L4-L5. L4 posterior decompression changes. Bilateral neural foraminal stenosis likely. Milder areas of narrowing seen at the other levels Soft tissues: Pelvic phleboliths. No significant paravertebral abnormality IMPRESSION: L4 posterior decompression changes. Similar L4 on L5 anterolisthesis with pars defects and probable neural foraminal narrowing. Milder spondylosis seen at other lumbar levels. Dictated by: Rahat Ross M.D. on 08/07/2025 at 20:11 Approved by: Rahat Ross M.D. on 08/07/2025 at 20:14
== END ==
LOC: CT 13:38
PROVIDERS: PCP Family Medicine; Referring Provider Family Medicine; Visit Provider Orthopaedic Surgery Orthopaedic Surgery of the Spine
DX: M43.16 Spondylolisthesis, lumbar region (principal); M54.16 Radiculopathy, lumbar region; M47.816 Spondylosis without myelopathy or radiculopathy, lumbar region
CPT/HCPCS: 72131

== ENCOUNTER → 2025-09-07 12:26 | Outpatient (CLI) | payer OTHER, SELFPAY ==
[2025-01-02 08:42] VITALS: BMI 36.3
--- NOTE | 2025-09-07 12:27 | DI.ECHO.S_ITS ---
[facility]---------+ [facility] : : [address] : : [place] : : [id number] : : Phone: [phone] Echocardiogram Report + + :Name: CHANDA BAJWA Study Date: 09/07/2025 Height: 60 in : :[facility] ReadingLocation: Weight: 174 lb : : Gender: Female BSA: 1.8 m2 : :: 1970 Age: 54 yrs BP: 159/104 mmHg: :Reason For Study: Pre-surgical evaluation : :Ordering Physician: JOY, : :DORINDA Arthur Performed By: Keena Lau : :Referring: DORINDA HAMILTON : + + Interpretation Summary The left ventricle is normal in size and wall thickness. Left ventricular systolic function is normal. The ejection fraction is estimated to be 55-60%. Probable hypokinesis along the basal inferior wall is present. Grade I diastolic dysfunction with normal left atrial pressure. The right ventricle grossly appears normal in size with probable normal systolic function. The right ventricular systolic pressure is estimated to be at least 26 mmHg based on an estimated right atrial pressure of 3 mm Hg. The left atrium is severely dilated. There is no significant valvular heart disease. The aortic root is normal size. Procedure: A two-dimensional transthoracic echocardiogram with color flow and Doppler was performed. The study quality was technically adequate. Comparison is made with the echocardiogram of 12-01-20. The heart rate ranged between 71-75 bpm during the study. Left Ventricle: The left ventricle is normal in size and wall thickness. Left ventricular systolic function is normal. The ejection fraction is estimated to be 55-60%. Probable hypokinesis along the basal inferior wall is present. Grade I diastolic dysfunction with normal left atrial pressure. Right Ventricle: The right ventricle grossly appears normal in size with probable normal systolic function. Atria: The left atrium is severely dilated. Right atrial size is normal. The interatrial septum grossly appears intact with no obvious evidence for an atrial septal defect. Mitral Valve: The mitral valve leaflets appear borderline thickened. There is trace mitral regurgitation. Aortic Valve: The aortic valve opens well. There is no aortic valve stenosis. No aortic regurgitation is present. Tricuspid Valve: The tricuspid valve is normal in structure and function. There is a trace or physiologic amount of tricuspid regurgitation. The right ventricular systolic pressure is estimated to be at least 26 mmHg based on an estimated right atrial pressure of 3 mm Hg. Pulmonic Valve: The pulmonic valve is not well seen, but is grossly normal. There is no pulmonic valvular regurgitation. There is no significant valvular heart disease. Great Vessels: The aortic root is normal size. The ascending aorta is normal in size. The aortic arch is normal in size. The IVC is of normal diameter and collapses greater than 50% with a sniff. This suggests a low right atrial pressure of 3 mm Hg. Pericardium/ Pleura There is no pericardial effusion. There is no pleural effusion. MMode/2D Measurements & Calculations LVIDd: 5.5 cm LVOT diam: 2.1 cm LVIDs: 3.6 cm Ao root diam: 3.0 cm FS: 35.7 % asc Aorta Diam: 3.0 cm EPSS: 0.97 cm Ao Arch Diam (Prox Trans): 2.8 cm IVSd: 0.74 cm LVPWd: 0.67 cm LV barnes. diameter/BSA (cm/m^2): 3.2 LV sys. diameter/BSA (cm/m^2): 2.0 LA A2 area: 22.3 cm2 RA long axis: 5.1 cm LA A4 area: 29.5 cm2 RA area: 13.0 cm2 LA length (vol): 6.2 cm RA vol: 28.0 ml LA vol: 90.0 ml RA : 15.9 ml/m2 LA vol index: 51.2 ml/m2 IVC diam: 1.6 cm TAPSE: 2.5 cm Doppler Measurements & Calculations Ao V2 max: 112.2 cm/sec LVOT Max Ap: 70.0 cm/sec Ao V2 mean: 83.8 cm/sec LV V1 max P.0 mmHg Ao max P.0 mmHg LV V1 VTI: 16.4 cm Ao mean P.1 mmHg LULA(I,D): 2.0 cm2 Ao V2 VTI: 28.2 cm LULA(V,D): 2.2 cm2 sev ratio: 0.58 LULA indexed to BSA (cm^2/m^2): 1.2 MV E max ap: 58.5 cm/sec TR max ap: 239.1 cm/sec MV A max ap: 106.9 cm/sec TR max P.9 mmHg MV E/A: 0.55 PA V2 max: 83.8 cm/sec Med Peak E' Ap: 5.6 cm/sec PA V2 mean: 58.1 cm/sec E/E' med: 10.4 PA mean P.5 mmHg Lat Peak E' Ap: 5.5 cm/sec PA pr(Accel): 8.8 mmHg E/E' lat: 10.6 E/e' average: 10.5 MV dec time: 0.32 sec SV(OT): 57.4 ml Reading Physician:[id number] PM
== END ==
LOC: ECHO 12:26
PROVIDERS: PCP Family Medicine; Referring Provider Nurse Practitioner; Visit Provider Nurse Practitioner
DX: R00.2 Palpitations (principal)
CPT/HCPCS: 93306

== ENCOUNTER 2025-10-03 21:06 | Emergency (ER) | payer OTHER, SELFPAY ==
[2025-01-02 08:42] VITALS: BMI 36.3
[2025-10-03 21:17] VITALS: BP 85/52; PULSE 118; RESP 18; TEMP 38.4; O2SAT 99; BMI 31.8
--- NOTE | 2025-10-03 21:28 | EKG_ITS ---
[place] [id number] [place] [id number] Test Date: 2025-10-03 Pat Name: Herminia Pires Department: [facility] Room: Gender: Female Meter Reading Clerk: JOHN : 1970 Requested By: Order Number: [id number] Reading MD: Dileep Sewell MD Measurements Intervals [place] Rate: 88 P: 22 [place]: 162 QRS: -37 QRSD: 82 T: 20 QT: 352 QTc: 425 Interpretive Statements Normal sinus rhythm Left axis deviation Cannot rule out Inferior infarct , age undetermined Electronically Signed On 10-04-2025 6:46:17 PST by Dileep Sewell MD
--- NOTE | 2025-10-03 21:28 | DI.RAD.S_ITS ---
PROCEDURE: XR CHEST 1V INDICATIONS: sepsis TECHNIQUE: One view of the chest was acquired. COMPARISON: [facility], CR, XR CHEST 2V, 09/02/2021, 8:58. FINDINGS: Surgical changes and devices: None. Lungs and pleura: Lungs are clear. No pleural effusions or pneumothorax. Mediastinum: Mediastinal contours appear normal. Heart size is normal. Bones and chest wall: No suspicious bony lesions. Overlying soft tissues appear unremarkable. IMPRESSION: No acute cardiopulmonary abnormality is seen. Approved by: Jennifer Mason M.D.,Ph.D. on 10/03/2025 at 22:17
--- NOTE | 2025-10-03 21:32 | ED.SEPSIS ---
HPI - Sepsis <Lore Roger MD - Last Filed: 10/04/25 01:05> General Chief Complaint: Fever Mode of arrival: Ambulatory Source: patient Evaluation Sepsis Screen: Possible Severe Sepsis Risk Sepsis Infection Criteria Present: Suspected New Infection Narrative: 54-year-old woman who underwent lateral interbody fusion lumbar 4 and 5 bilaterally with an interbody cage placement on September 20 at [facility] with Dr. Anastacio mahan tonight noting that she was feeling unwell today fevers, chills increasing pain and fullness on the right side of her incisions over the lumbar area on presentation to the emergency department she had a syncopal episode in triage with a blood pressure at 85/52, heart rate of 110, febrile to 101.2 and significant bloody and purulent drainage from the wound site. Code sepsis was called. Neither she nor her report headaches, chest pain, shortness of breath, vomiting or diarrhea <Amador Leggett DO - Last Filed: 10/04/25 02:46> Evaluation Sepsis Onset Time: 21:27 Review of Systems <Lore Roger MD - Last Filed: 10/04/25 01:05> Review of Systems Narrative: Pertinent positive and negative findings as per HPI Patient History <Lore Roger MD - Last Filed: 10/04/25 01:05> Medical History Spondylolisthesis at L4-L5 level Osteoarthritis Headache (~1989) Lumbar disc disease (~2022) Cervical spine disease (~2022) Chicken pox (~1974) Vertigo (~2016) Tinnitus (~2015) Hearing loss (~2016) HNP (herniated nucleus pulposus), cervical Lumbar post-laminectomy syndrome Lumbar radiculopathy Low back pain Sacroiliac joint dysfunction of left side Multiple sclerosis (~2016) Depression Fibromyalgia (~2009) Rheumatoid arthritis Surgical History Anesthesia History of fracture (~03/2006) History of lumbosacral spine surgery (~07/2023) History of hip surgery (~03/2024) History of carpal tunnel release (~09/2024) History of hysterectomy (10/20/01) H/O shoulder surgery Family History Family/Other Multiple sclerosis Father Cancer Sister Ovarian cancer Grandmother Rheumatoid arthritis Social History household members: spouse Smoking Status: Never smoker Smoking Status: Never smoker alcohol intake frequency: holidays/special occasions only Exam <Lore Roger MD - Last Filed: 10/04/25 01:05> Initial Vital Signs Initial Vital Signs: Vital Signs Temperature 101.2 F H 10/03/25 21:17 Pulse Rate 118 H 10/03/25 21:17 Respiratory Rate 18 10/03/25 21:17 Blood Pressure 85/52 L 10/03/25 21:17 Pulse Oximetry 99 10/03/25 21:17 Oxygen Delivery Method Room Air 10/03/25 21:17 General: Pale, near syncopal episode, no loss of consciousness HEENT: Dry mucous membranes, normal sclera with reactive pupils, Respiratory: Lungs are clear to auscultation, no wheezing no rales no rhonchi. Full and symmetrical air movement Cardiac: Tachycardic Regular rate and rhythm no murmurs Abdomen: Soft, nontender, no rebound or guarding, Skin: Pale, good capillary refill distally Spine: Lower lumbar surgical sites, and there is fullness under the right side with a central punctate lesion draining bloody purulent fluid. No surrounding cellulitis Neurologic: Globally weak but Grossly neurologically intact with no obvious asymmetries or abnormalities Extremities: No trauma, Psych: Cooperative, appropriate insight and affect <Amador Leggett DO - Last Filed: 10/04/25 02:46> Initial Vital Signs Initial Vital Signs: Vital Signs Temperature 101.2 F H 10/03/25 21:17 Pulse Rate 118 H 10/03/25 21:17 Respiratory Rate 18 10/03/25 21:17 Blood Pressure 85/52 L 10/03/25 21:17 Pulse Oximetry 99 10/03/25 21:17 Oxygen Delivery Method Room Air 10/03/25 21:17 Course <Lore Roger MD - Last Filed: 10/04/25 01:05> Orders Ordered: ED Orders 10/03/25 21:28 XR chest 1V Stat Wound Culture and Gram Stain Stat EKG-12 Lead Stat 12/15/25 21:31 CT lumbar spine w con Stat 10/03/25 21:50 Blood Culture Stat Complete Blood Count AUTO DIFF Stat Comprehensive Metabolic Panel Stat Lactate (Lactic Acid) Stat Procalcitonin Stat 10/04/25 00:14 Urinalysis and Microscopic Stat Vancomycin HCl/Dextrose (Vancomycin) 1,500 mg in 300 mls @ 200 mls/hr IV Q24H ARIK Discontinued Medications Acetaminophen (Acetaminophen 325 Mg Tablet) 650 mg PO NOW ONE Stop: 10/04/25 02:12 Last Admin: 10/04/25 02:13 Dose: 650 mg Documented By: GIANCARLO Sodium Chloride (Normal Saline 0.9%) 2,218.08 mls @ 1,478.72 mls/hr 30 ml/kg infuse over 90 min (2218.08 ml) IV NOW ONE Stop: 10/03/25 22:57 Last Infusion: 10/04/25 01:40 Dose: Infused Documented By: Admin: 10/03/25 22:19 Dose: 1,478.72 mls/hr Documented By: GIANCARLO Piperacillin Sod/Tazobactam (Sod 4.5 gm/ Sodium Chloride) 100 mls @ 200 mls/hr IV STAT ONE Stop: 10/03/25 21:29 Last Infusion: 10/03/25 22:54 Dose: Infused Documented By: Admin: 10/03/25 22:21 Dose: 200 mls/hr Documented By: GIANCARLO Vancomycin HCl/Dextrose (Vancomycin) 2,000 mg in 400 mls @ 200 mls/hr IV NOW ONE Stop: 10/04/25 01:29 Last Infusion: 10/04/25 01:40 Dose: Infused Documented By: Admin: 10/03/25 23:19 Dose: 200 mls/hr Documented By: GIANCARLO Vancomycin HCl (Vancomycin Per Pharmacy) 1 request MISC STAT ONE Stop: 10/03/25 21:30 Vital Signs Vital signs: Vital Signs - 8 hr 10/03/25 21:17 10/03/25 22:30 10/03/25 22:30 Temperature 101.2 F H Pulse Rate 118 H 92 H Respiratory Rate 18 Blood Pressure 85/52 L 110/58 L Pulse Oximetry 99 94 Oxygen Delivery Method Room Air Oxygen Flow Rate 10/03/25 23:00 10/03/25 23:00 10/03/25 23:30 Temperature Pulse Rate 87 Respiratory Rate 15 Blood Pressure 112/58 L 108/61 Pulse Oximetry 91 Oxygen Delivery Method Room Air Oxygen Flow Rate 10/03/25 23:30 10/03/25 23:55 10/03/25 23:55 Temperature Pulse Rate 80 85 Respiratory Rate 12 13 Blood Pressure 130/63 Pulse Oximetry 95 96 Oxygen Delivery Method Nasal Cannula Nasal Cannula Oxygen Flow Rate 2 2 10/04/25 00:00 10/04/25 00:00 10/04/25 00:30 Temperature 99.2 F Pulse Rate 78 84 Respiratory Rate 10 L 20 Blood Pressure 130/63 Pulse Oximetry 99 98 Oxygen Delivery Method Nasal Cannula Nasal Cannula Oxygen Flow Rate 2 2 10/04/25 00:30 10/04/25 01:01 10/04/25 01:02 Temperature Pulse Rate 83 83 Respiratory Rate 20 18 Blood Pressure 128/62 Pulse Oximetry 97 96 Oxygen Delivery Method Nasal Cannula Nasal Cannula Oxygen Flow Rate 2 2 10/04/25 01:02 10/04/25 01:30 10/04/25 01:30 Temperature Pulse Rate 78 Respiratory Rate 16 Blood Pressure 130/61 114/60 Pulse Oximetry 96 Oxygen Delivery Method Nasal Cannula Oxygen Flow Rate 2 10/04/25 02:00 10/04/25 02:00 10/04/25 02:16 Temperature 100.0 F H Pulse Rate 78 Respiratory Rate 17 Blood Pressure 124/58 L Pulse Oximetry 95 Oxygen Delivery Method Room Air Oxygen Flow Rate <Amador Leggett, DO - Last Filed: 10/04/25 02:46> Orders Ordered: ED Orders 10/03/25 21:28 XR chest 1V Stat Wound Culture and Gram Stain Stat EKG-12 Lead Stat 10/03/25 21:31 CT lumbar spine w con Stat 10/03/25 21:50 Blood Culture Stat Complete Blood Count AUTO DIFF Stat Comprehensive Metabolic Panel Stat Lactate (Lactic Acid) Stat Procalcitonin Stat 10/04/25 00:14 Urinalysis and Microscopic Stat Vancomycin HCl/Dextrose (Vancomycin) 1,500 mg in 300 mls @ 200 mls/hr IV Q24H ARIK Discontinued Medications Acetaminophen (Acetaminophen 325 Mg Tablet) 650 mg PO NOW ONE Stop: 10/04/25 02:12 Last Admin: 10/04/25 02:13 Dose: 650 mg Documented By: LS Sodium Chloride (Normal Saline 0.9%) 2,218.08 mls @ 1,478.72 mls/hr 30 ml/kg infuse over 90 min (2218.08 ml) IV NOW ONE Stop: 10/03/25 22:57 Last Infusion: 10/04/25 01:40 Dose: Infused Documented By: Admin: 10/03/25 22:19 Dose: 1,478.72 mls/hr Documented By: GIANCARLO Piperacillin Sod/Tazobactam (Sod 4.5 gm/ Sodium Chloride) 100 mls @ 200 mls/hr IV STAT ONE Stop: 10/03/25 21:29 Last Infusion: 10/03/25 22:54 Dose: Infused Documented By: Admin: 10/03/25 22:21 Dose: 200 mls/hr Documented By: GIANCARLO Vancomycin HCl/Dextrose (Vancomycin) 2,000 mg in 400 mls @ 200 mls/hr IV NOW ONE Stop: 10/04/25 01:29 Last Infusion: 10/04/25 01:40 Dose: Infused Documented By: Admin: 10/03/25 23:19 Dose: 200 mls/hr Documented By: GIANCARLO Vancomycin HCl (Vancomycin Per Pharmacy) 1 request [facility] ONE Stop: 10/03/25 21:30 Vital Signs Vital signs: Vital Signs - 8 hr 10/03/25 21:17 10/03/25 22:30 10/03/25 22:30 Temperature 101.2 F H Pulse Rate 118 H 92 H Respiratory Rate 18 Blood Pressure 85/52 L 110/58 L Pulse Oximetry 99 94 Oxygen Delivery Method Room Air Oxygen Flow Rate 10/03/25 23:00 10/03/25 23:00 10/03/25 23:30 Temperature Pulse Rate 87 Respiratory Rate 15 Blood Pressure 112/58 L 108/61 Pulse Oximetry 91 Oxygen Delivery Method Room Air Oxygen Flow Rate 10/03/25 23:30 10/03/25 23:55 10/03/25 23:55 Temperature Pulse Rate 80 85 Respiratory Rate 12 13 Blood Pressure 130/63 Pulse Oximetry 95 96 Oxygen Delivery Method Nasal Cannula Nasal Cannula Oxygen Flow Rate 2 2 10/04/25 00:00 10/04/25 00:00 10/04/25 00:30 Temperature 99.2 F Pulse Rate 78 84 Respiratory Rate 10 L 20 Blood Pressure 130/63 Pulse Oximetry 99 98 Oxygen Delivery Method Nasal Cannula Nasal Cannula Oxygen Flow Rate 2 2 10/04/25 00:30 10/04/25 01:01 10/04/25 01:02 Temperature Pulse Rate 83 83 Respiratory Rate 20 18 Blood Pressure 128/62 Pulse Oximetry 97 96 Oxygen Delivery Method Nasal Cannula Nasal Cannula Oxygen Flow Rate 2 2 10/04/25 01:02 10/04/25 01:30 10/04/25 01:30 Temperature Pulse Rate 78 Respiratory Rate 16 Blood Pressure 130/61 114/60 Pulse Oximetry 96 Oxygen Delivery Method Nasal Cannula Oxygen Flow Rate 2 10/04/25 02:00 10/04/25 02:00 10/04/25 02:16 Temperature 100.0 F H Pulse Rate 78 Respiratory Rate 17 Blood Pressure 124/58 L Pulse Oximetry 95 Oxygen Delivery Method Room Air Oxygen Flow Rate Sepsis Evaluation (ED) <Lore Roger MD - Last Filed: 10/04/25 01:05> Triage Screening Sepsis Screen: Possible Severe Sepsis Risk Level 1 - Infection Sepsis Infection Criteria Present: Suspected New Infection Level 2 - SIRS Sepsis SIRS Criteria Present: Temperature > 101.0 or < 96.8 F, WBC < 4k or > 12k or Bands > 10% and Pulse > 90 bpm Response It is my opinion that this patient have a likely infectious etiology for meeting sepsis criteria: Does Fluid calculation based on 30 mL/kg within 1hr of criteria: ABW used Antibiotics initiated within 1 hr of Sepis dx: Yes Tissue Perfusion Reassessed within 6 hrs of infusion start time: Yes Date of Tissue Perfusion Reassessment completed: 10/03/25 Time Tissue Perfusion Reassessment completed: 22:46 MDM - Sepsis <Lore Roger MD - Last Filed: 10/04/25 01:05> Differential Diagnosis Current stage of sepsis: severe sepsis Possible source sepsis: skin/soft tissue and other (Post lumbar spine surgery) Differential diagnosis: hypovolemia, acute blood loss and acute pulmonary embolism Condition is:: Worsening Medical Records Medical records narrative: Discharge summary from [facility] from September 21 is reviewed Lab Data Lab results narrative: CBC shows a white count of 31.9 with multiple PMNs and bands 10/03/25 21:50 10/03/25 21:50 Labs: Lab Results 10/03/25 10/03/25 Range/Units 21:50 23:51 WBC 31.9 H* (4.5-11.0) X10^3/uL RBC 3.70 L (4.0-5.2) X10^6/uL Hgb 10.4 L (12.0-16.0) g/dL Hct 31.6 L (36-46) % MCV 85.4 (80-100) fL MCH 28.2 (26-34) PG MCHC 33.0 (30-36) % RDW 13.1 (11.6-14.8) % Plt Count 474 H (150-400) X10^3/uL Neut % (Auto) Not Reportable Lymph % (Auto) Not Reportable Mcleod % (Auto) Not Reportable Eos % (Auto) Not Reportable Baso % (Auto) Not Reportable Lymph # (Auto) Not Reportable Mcleod # (Auto) Not Reportable Baso # (Auto) Not Reportable Total Counted 100 Seg Neutrophils % 90.0 H (38-70) % Band Neutrophils % 1.0 L (3-7) % Lymphocytes % (Manual) 5.0 L (25-45) % Monocytes % (Manual) 4.0 (2-11) % Neutrophils # (Manual) 53158 H (3295-2190) /uL RBC Morphology Normal morphology Sodium 138 (137-145) mmol/L Potassium 3.7 (3.4-5.1) mmol/L Chloride 102 (98-107) mmol/L Carbon Dioxide 27 (22-32) mmol/L BUN 12 (7-17) mg/dL Creatinine 1.02 (0.52-1.04) mg/dL Estimated GFR > 60 (>60) mL/min BUN/Creatinine Ratio 11.8 (6-22) Glucose 136 H (70-99) mg/dL Lactate 1.5 (0.7-2.1) mmol/L Calcium 9.2 (8.4-10.2) mg/dL Total Bilirubin 0.8 (0.2-1.3) mg/dL AST 58 H (14-36) IU/L ALT 37 H (<35) IU/L Alkaline Phosphatase 122 (38-126) U/L Total Protein 7.0 (6.3-8.2) g/dL Albumin 4.1 (3.5-5.0) g/dL Globulin 2.9 (1.7-4.1) g/dL Albumin/Globulin Ratio 1.4 (1.0-2.8) Procalcitonin 0.405 (<0.5) ng/mL Urine Color Yellow Urine Appearance Clear Urine pH 6.5 (4.5-8.0) Ur Specific Mora <=1.005 (1.000-1.035) Urine Protein Negative (Negative) Urine Glucose (UA) Negative (Negative) g/dL Urine Ketones Negative (NEGATIVE) Urine Occult Blood Negative (Negative) Urine Nitrate Negative (Negative) Urine Bilirubin Negative (NEGATIVE) Urine Urobilinogen 0.2 (0.2) E.U./dL Ur Leukocyte Esterase Negative (NEGATIVE) Urine RBC None seen (0-5/HPF) Urine WBC 0-1/hpf (0-5/HPF) Ur Squamous Epith Cells 1-5 /hpf (0-5/HPF) Urine Bacteria None seen (None) Ur Culture Indicated? Cult not indicated Vol Urine Centrifuged 10ml (spun) Imaging Data CT lumbar spine: Radiologist's Impression: PROCEDURE: CT LUMBAR SPINE W CON INDICATIONS: sepsis, surgical site wound TECHNIQUE: After the administration of intravenous Isovue contrast, 3 mm thick sections acquired through the levels of interest. Sagittal and coronal reformats were then constructed. For radiation dose reduction, the following was used: automated exposure control. COMPARISON: None. FINDINGS: Image quality: Diagnostic The patient is status post L4-L5 posterior spinal fixation using transpedicle screws and paired vertical rods. Intervertebral disc spacer at L4-L5. Trace anterolisthesis of L4 on L5. No evidence of hardware complication. Posterior spinal soft tissues extending along the lumbar spine with predominant fluid seen at L3-L4 level. No rim enhancing fluid collection. Questionable subtle area of hyperdensity in the fluid collection for example series 3, image 60 on the right, which may represent layering hemorrhagic material. No acute osseous abnormality. IMPRESSION: Status post L4-L5 posterior spinal fusion with intervertebral disc spacer. Postoperative changes in the posterior lumbar spinal subcutaneous tissue with greatest volume of fluid at the L3-L4 level. These findings may represent seroma, however sterility is difficult to assess by imaging. Questionable faint foci of hyperdensity may represent some hemorrhagic contents. Approved by: Jennifer Mason M.D.,Ph.D. on 10/03/2025 at 22:16 MDM Narrative Medical decision making narrative: 54-year-old woman who underwent lateral interbody fusion lumbar 4 and 5 bilaterally with an interbody cage placement on September 20 at [facility] with Dr. Chaves Today be can feeling poorly increasingly weak, fevers and chills some swelling around her surgical site. Comes in to the emergency department in his meeting all criteria for sepsis. The area around her wound has a draining spot that is slightly enlarged with an 11 blade scalpel and 500 cc of blood and purulence usually drains from the area. Patient responded very well to initial fluids, reperfusion recheck at 11:30 p.m. shows much better color, color to ellipse, improved blood pressure and a general sensation that she is feeling better and we will pass out when she sits up. Still has good peripheral blood flow at this time. Cultures of the drainage from the wound has been ordered She was started on Zosyn and vancomycin. She is having minimal pain there are no acute neurologic findings CT scan shows: Status post L4-L5 posterior spinal fusion with intervertebral disc spacer. Postoperative changes in the posterior lumbar spinal subcutaneous tissue with greatest volume of fluid at the L3-L4 level. 2300: Received sign-out by review his provider, patient presented for increased weakness, fever and chills and swelling around her postop surgical site at the L4-L5 region, patient did have significant amount of purulent drainage from the area she has no neurological deficits, CT scan does show significant amount of subcutaneous tissue with volume noted, also faint foci of hyperdensity possible hemorrhagic contents, patient has already received antibiotics, vanc and Zosyn, had a discussion with [facility] spine PA Stella Medina'ananya, according to her they do not have an on-call surgeon overnight, and states despite the fact this is a postop patient they are recommending consultation with [place]. Will reach out to [facility] spine 1am Discussion with transfer center . Will page spine surgery service. <Amador Leggett, DO - Last Filed: 10/04/25 02:46> Lab Data Labs: Lab Results 10/03/25 10/03/25 Range/Units 21:50 23:51 WBC 31.9 H* (4.5-11.0) X10^3/uL RBC 3.70 L (4.0-5.2) X10^6/uL Hgb 10.4 L (12.0-16.0) g/dL Hct 31.6 L (36-46) % MCV 85.4 (80-100) fL MCH 28.2 (26-34) PG MCHC 33.0 (30-36) % RDW 13.1 (11.6-14.8) % Plt Count 474 H (150-400) X10^3/uL Neut % (Auto) Not Reportable Lymph % (Auto) Not Reportable Mcleod % (Auto) Not Reportable Eos % (Auto) Not Reportable Baso % (Auto) Not Reportable Lymph # (Auto) Not Reportable Mcleod # (Auto) Not Reportable Baso # (Auto) Not Reportable Total Counted 100 Seg Neutrophils % 90.0 H (38-70) % Band Neutrophils % 1.0 L (3-7) % Lymphocytes % (Manual) 5.0 L (25-45) % Monocytes % (Manual) 4.0 (2-11) % Neutrophils # (Manual) 62697 H (1830-0043) /uL RBC Morphology Normal morphology Sodium 138 (137-145) mmol/L Potassium 3.7 (3.4-5.1) mmol/L Chloride 102 (98-107) mmol/L Carbon Dioxide 27 (22-32) mmol/L BUN 12 (7-17) mg/dL Creatinine 1.02 (0.52-1.04) mg/dL Estimated GFR > 60 (>60) mL/min BUN/Creatinine Ratio 11.8 (6-22) Glucose 136 H (70-99) mg/dL Lactate 1.5 (0.7-2.1) mmol/L Calcium 9.2 (8.4-10.2) mg/dL Total Bilirubin 0.8 (0.2-1.3) mg/dL AST 58 H (14-36) IU/L ALT 37 H (<35) IU/L Alkaline Phosphatase 122 (38-126) U/L Total Protein 7.0 (6.3-8.2) g/dL Albumin 4.1 (3.5-5.0) g/dL Globulin 2.9 (1.7-4.1) g/dL Albumin/Globulin Ratio 1.4 (1.0-2.8) Procalcitonin 0.405 (<0.5) ng/mL Urine Color Yellow Urine Appearance Clear Urine pH 6.5 (4.5-8.0) Ur Specific Mora <=1.005 (1.000-1.035) Urine Protein Negative (Negative) Urine Glucose (UA) Negative (Negative) g/dL Urine Ketones Negative (NEGATIVE) Urine Occult Blood Negative (Negative) Urine Nitrate Negative (Negative) Urine Bilirubin Negative (NEGATIVE) Urine Urobilinogen 0.2 (0.2) E.U./dL Ur Leukocyte Esterase Negative (NEGATIVE) Urine RBC None seen (0-5/HPF) Urine WBC 0-1/hpf (0-5/HPF) Ur Squamous Epith Cells 1-5 /hpf (0-5/HPF) Urine Bacteria None seen (None) Ur Culture Indicated? Cult not indicated Vol Urine Centrifuged 10ml (spun) MDM Narrative Medical decision making narrative: 54-year-old woman who underwent lateral interbody fusion lumbar 4 and 5 bilaterally with an interbody cage placement on September 20 at [facility] with Dr. Chaves Today be can feeling poorly increasingly weak, fevers and chills some swelling around her surgical site. Comes in to the emergency department in his meeting all criteria for sepsis. The area around her wound has a draining spot that is slightly enlarged with an 11 blade scalpel and 500 cc of blood and purulence usually drains from the area. Patient responded very well to initial fluids, reperfusion recheck at 11:30 p.m. shows much better color, color to ellipse, improved blood pressure and a general sensation that she is feeling better and we will pass out when she sits up. Still has good peripheral blood flow at this time. Cultures of the drainage from the wound has been ordered She was started on Zosyn and vancomycin. She is having minimal pain there are no acute neurologic findings CT scan shows: Status post L4-L5 posterior spinal fusion with intervertebral disc spacer. Postoperative changes in the posterior lumbar spinal subcutaneous tissue with greatest volume of fluid at the L3-L4 level. 2300: Received sign-out by review his provider, patient presented for increased weakness, fever and chills and swelling around her postop surgical site at the L4-L5 region, patient did have significant amount of purulent drainage from the area she has no neurological deficits, CT scan does show significant amount of subcutaneous tissue with volume noted, also faint foci of hyperdensity possible hemorrhagic contents, patient has already received antibiotics, vanc and Zosyn, had a discussion with [facility] spine RAMON Seals, according to her they do not have an on-call surgeon overnight, and states despite the fact this is a postop patient they are recommending consultation with [place]. Will reach out to [facility] spine 1am Discussion with transfer center . Will page spine surgery service. 0130: Received a call back from [place], they state that they do not want to/are willing to consult with the patient to determine urgent/emergent intervention given the fact that this patient is within 30 days postop, they are stating that this needs to go back to the patient's main surgeon, given this situation call back linen room houseperson at [facility] 0150: We had a discussion with the linen room houseperson at [facility], she states that we should try to do an ED to/ED transfer 0200: Discussed case with Dr. Russell, accepts the transfer patient will be sent ED to ED [facility] Discharge Plan Departure Patient Disposition: [facility] Clinical Impression: Post surgical complication Qualifiers: Surgical complication system/body Area: musculoskeletal system Surgical complication type: unspecified Sepsis Qualifiers: Sepsis type: sepsis due to unspecified organism Sepsis acute organ dysfunction status: without acute organ dysfunction Qualified Code(s): A41.9 - Sepsis, unspecified organism Prescriptions: No Action cholecalciferol (vitamin D3) [Vitamin D3] 1,000 UNIT tablet 3,000 iu PO DAILY Qty: 0 calcium citrate 200 MG tablet 2,000 mg PO BID Qty: 0 magnesium oxide 400 MG capsule 400 mg PO QDAY Qty: 0 duloxetine [Cymbalta] 60 MG capsule,delayed release(DR/EC) 60 mg PO QDAY Qty: 0 lidocaine 5 % adhesive patch,medicated 1 patch topical DAILY Qty: 30 1RF Rx Instructions: leave on most painful area for 12 hrs gabapentin 600 mg tablet 1,200 mg PO 3XD Qty: 540 0RF baclofen 20 mg tablet 20 mg PO DAILY montelukast 10 mg tablet 10 mg PO DAILY dalfampridine 10 mg tablet extended release 12 hr 10 mg PO BID Rituxan 10 mg/mL concentrate 100 mg IV [id number] omeprazole 40 mg capsule,delayed release(DR/EC) 40 mg PO DAILY halobetasol propionate 0.05 % ointment topical clobetasol 0.05 % ointment topical DAILY leflunomide 20 mg tablet 20 mg PO DAILY prednisone 5 mg tablet 5 mg PO DAILY Patient Comments: [NO ORIGINAL SIG] solifenacin 5 mg tablet 5 mg PO DAILY Patient Comments: [NO ORIGINAL SIG] Referrals: Selina Quezada MD [Primary Care Provider, Family Practice]
[2025-10-03 22:06] LABS: Hematocrit 31.6 % (36-46); Hemoglobin 10.4 g/dL (12.0-16.0); Mean Corpuscular HGB Conc 33.0 % (30-36); Mean Corpuscular Hemoglobin 28.2 PG (26-34); Mean Corpuscular Volume 85.4 fL (80-100); Platelet Count 474 X10^3/uL (150-400)
[2025-10-03 22:09] LABS: Add Manual Diff / Slide Review YES
[2025-10-03 22:16] LABS: Alanine Aminotransferase 37 IU/L (<35); Albumin 4.1 g/dL (3.5-5.0); Albumin Globulin Ratio 1.4 (1.0-2.8); Alkaline Phosphatase 122 U/L (38-126); Blood Urea Nitrogen 12 mg/dL (7-17); Calcium 9.2 mg/dL (8.4-10.2); Carbon Dioxide 27 mmol/L (22-32); Chloride 102 mmol/L (98-107); Estimated Glomerular Filt Rate > 60 mL/min (>60); Globulin 2.9 g/dL (1.7-4.1); Glucose 136 mg/dL (70-99); HEMOLYSIS < 15 (0-50); Potassium 3.7 mmol/L (3.4-5.1); Sodium 138 mmol/L (137-145); Total Protein 7.0 g/dL (6.3-8.2)
[2025-10-03 22:17] LABS: Lactate (Lactic Acid) 1.5 mmol/L (0.7-2.1)
[2025-10-03] MEDS: SODIUM CHLORIDE 0.9% 2,218.08 ML 1478.72 ML IV (22:19)
[2025-10-03] MEDS: PIPERACILLIN/TAZO 4.5 GM in SODIUM CHLORIDE 0.9% 100 ML IV (22:21)
[2025-10-03 22:30] VITALS: BP 110/58; PULSE 92; O2SAT 94
[2025-10-03 22:32] LABS: Band Neutrophils Percent 1.0 % (3-7); Lymphocytes Percent Manual 5.0 % (25-45); Monocytes Percent Manual 4.0 % (2-11); Neutrophils Absolute Manual 29029 /uL (3000-5900); RBC Morphology Normal Morphology; Segmented Neutrophils Percent 90.0 % (38-70); Total Cells Counted 100
[2025-10-03 22:33] LABS: Procalcitonin 0.405 ng/mL (<0.5)
[2025-10-03 23:00] VITALS: BP 112/58; PULSE 87; RESP 15; O2SAT 91
[2025-10-03] MEDS: VANCOMYCIN 2,000 MG/400 ML PIGGYBACK 200 MG IV (23:19)
[2025-10-03 23:30] VITALS: BP 108/61; PULSE 80; RESP 12; O2SAT 95
--- NOTE | 2025-10-03 23:51 | PC.NURSE ---
Pt ambulatory to restroom without difficulty with 1 person standby.
[2025-10-03 23:55] VITALS: BP 130/63; PULSE 85; RESP 13; O2SAT 96
[2025-10-04] VITALS (7 sets, daily range): BP systolic 114–130; BP diastolic 58–63; PULSE 78–84; RESP 10–20; TEMP 37.3–37.8; O2SAT 95–99
[2025-10-04 00:47] LABS: Appearance Urine UA CLEAR; Bilirubin Urine UA NEGATIVE (NEGATIVE); Color Urine UA YELLOW; Glucose Urine UA NEGATIVE (Negative); Ketones Urine UA NEGATIVE (NEGATIVE); Leukocyte Esterase Urine UA NEGATIVE (NEGATIVE); Nitrite Urine UA NEGATIVE (Negative); Occult Blood Urine UA NEGATIVE (Negative); Protein Urine UA NEGATIVE (Negative); Specific Gravity Urine UA <=1.005 (1.000-1.035); Urobilinogen Urine UA 0.2 E.U./dL (0.2)
[2025-10-04 00:48] LABS: pH Urine UA 6.5 (4.5-8.0)
[2025-10-04 01:14] LABS: Culture Indicated Urine Cult Not Indicated
--- NOTE | 2025-10-04 02:07 | PC.NURSE ---
Pt ambulatory to restroom without difficulty or assistance, 1 person standby.
[2025-10-04] MEDS: ACETAMINOPHEN 325 MG TABLET 650 MG PO (02:13)
== END 2025-10-04 02:44 | disposition short-term general hospital (02) ==
PROVIDERS: Emergency Medicine; Emergency Provider Student in an Organized Health Care Education/Training Program; PCP Family Medicine
DX: M96.89 Other intraoperative and postprocedural complications and disorders of the musculoskeletal system (principal); R55 Syncope and collapse
CPT/HCPCS: 36415; 71045; 72132; 80053; 81001; 83605; 84145; 85007; 85025; 87040; 87070; 87075; 87077; 87147; 87205; 93005; 96365; 96367; 99284; 99285; J2543; J3375; J7030; J7050; Q9967